=== PATIENT | female | born 1945 | race Caucasian/White ===

== ENCOUNTER → 2016-06-11 | Outpatient (CLI) | payer MEDICARE, OTHER ==
--- NOTE | 2016-06-12 12:14 | MY ---
EXAMINATION: Bilateral digital mammography utilizing CAD. HISTORY: Screening exam. Comparison is made to previous studies dated 08/02/2014, 07/16/2013. FINDINGS: Bilateral extremely dense breast tissue. Postsurgical changes are noted within the breasts bilateral ly. Punctate calcifications are noted. No suspicious calcifications, masses or architectural distortions. No pathologic appearing lymph nodes, no abnormal skin thickening or nipple inversion. CAD highlighted regions appear normal at this time. IMPRESSION: BI-RADS category II - Benign finding. Continued screening according to ACR-ACS guidelines suggested. THE FALSE-NEGATIVE RATE OF MAMMOGRAM IS APPROXIMATELY 10%. MANAGEMENT OF A PALPABLE ABNORMALITY MUST BE BASED UPON CLINICAL GROUNDS. SENSITIVITY FOR DETECTION OF ABNORMALITIES IN DENSE BREASTS IS LOW. NOTE: A letter will be sent to the patient regarding findings. [facility] -- DANDRE Redd [phone] - FAX [phone]
--- NOTE | 2016-06-12 16:34 | XA ---
Exam Date: 06/11/16 Patient's Age: 71 HEIGHT: 64.0 in WEIGHT: 170.0 lbs INDICATIONS: Back Pain, Bilateral Oophorectomy, , Hypertension, Hysterectomy, Post Menopausal FRACTURES: Back Surgery, Foot, Wrist TREATMENTS: Almodipine, Baby Aspirin, Calcium, Iron, Levemir FlexPen,Lyrica, Metoprolol, Multi Vitamin, NovoLog FlexPen, Paroxetine, Simvastatin, Sulindac, Victozio, Vitamin D3 ASSESSMENT: The BMD measured at Femur Neck Mean is 0.875 g/cm2 with a T-score of -1.2. This patient is considered osteopenic according to World Health Organization (WHO) criteria. Bone density is between 10 and 25% below young normal. Fracture risk is moderate. Treatment is advised. The BMD measured at Femur Troch Mean is 0.755 g/cm2 with a T-score of -0.8 is normal. Fracture risk is low. RESULTS: Site Region Age Classification T-Score BMD Dual Femur Neck Mean 70.0 Osteopenia -1.2 0.875 g/cm2 Dual Femur Troch Mean 70.0 N/A -0.8 0.755 g/cm2 Dual Femur Total Mean 70.0 Normal -0.1 0.996 g/cm2 Lf Forearm Radius 33% 70.0 Normal -0.4 0.849 g/cm2 Lf Forearm Radius 33% 63.1 Normal -0.6 0.837 g/cm2 World Health Organization - Criteria for post-menopausal, women: Normal: T-Score at or above -1 SD Osteopenia: T-Score between -1 and -2.5 SD Osteoporosis: T-Score at or below -2.5 SD RECOMMENDATION: Pharmacologic treatment recommendations & Initiate pharmacologic treatment: - In those with hip or vertebral (clinical or asymptomatic) fractures - In those with T -scores <-2.5 at the femoral neck, total hip, or lumbar spine by DXA - In postmenopausal women and men age 50 and older with low bone mass (T-score between -1.0 and -2.5, osteopenia) at the femoral neck, total hip, or lumbar spine by DXA and a 10-year hip fracture probability >3 % or a 10-year major osteoporosis-related fracture probability >20% based on the [place]-adapted WHO absolute fracture risk model (Fracture Risk Algorithm (FRAX); www. NOF.org and www.shef.ac.uk/FRAX) FOLLOW UP: People with diagnosed cases of osteoporosis or at high risk for fracture should have regular bone mineral density tests. For patients eligible for Medicare, routine testing is allowed once every 2 years. The testing frequency can be increased to 1 year for patients who have rapidly progressing disease, those who are reviewing or discontinuing medial therapy to restore bone mass, or have additional risk factors. People with diagnosed cases of osteoporosis or osteopenia should be regularly tested for bone mineral density. For patient eligible for Medicare, routine testing is allowed once every 2 years. The testing frequency can be increased to 1 year for patients who have rapidly progressing disease, or for those who are receiving medial therapy to restore bone mass. [facility] -- DANDRE Redd [phone] - FAX: [phone] ROCKY
== END ==
LOC: MW.MAM 12:44
PROVIDERS: ATTEND Nurse Practitioner Women's Health
DX: Z12.31 Encounter for screening mammogram for malignant neoplasm of breast (principal); M85.859 Other specified disorders of bone density and structure, unspecified thigh; Z78.0 Asymptomatic menopausal state
CPT/HCPCS: 77080; G0202

== ENCOUNTER 2016-07-05 06:24 | Day surgery (SDC) | payer MEDICARE, OTHER ==
[~2016-07-05 06:24] MED LIST: Lactated Ringers 1,000 ML IV SCH; Sodium Chloride 0.9% 10 ML Syringe FLUSH PRN; Sodium Chloride 0.9% 2.5 ML Syringe FLUSH PRN
[2016-07-05] MEDS ORDERED: Propofol 200 MG/20 ML SDV ONE (07:21)
[2016-07-05] MEDS ORDERED: Midazolam 1 MG/ML 2 ML SDV ONE (07:22)
[2016-07-05] MEDS ORDERED: fentaNYL 100 MCG/2 ML SDV ONE (07:22)
--- NOTE | 2016-07-05 07:38 | PCM.PREANE ---
Preanesthetic Assessment - Anesthesia/Transfusion/Family Hx Anesthesia History: Prior Anesthesia Without Reaction Family History of Anesthesia Reaction: No Transfusion History: No Prior Transfusion(s) Intubation History: Unknown - Review of Systems General: No Symptoms Pulmonary: No Symptoms Cardiovascular: No Symptoms Gastrointestinal: No symptoms Neurological: No Symptoms Other: Reports: None - Physical Assessment NPO Status Date: 07/04/16 NPO Status Time: 21:00 O2 Sat by Pulse Oximetry: 94 Respiratory Rate: 16 Vital Signs: Last Vital Signs Temp 36.5 C 07/05/16 06:35 Pulse 95 07/05/16 06:35 Resp 16 07/05/16 06:35 BP 138/80 07/05/16 06:35 Pulse Ox 94 L 07/05/16 06:35 Height: 1.63 m Weight: 82.1 kg Mental Status: Alert & Oriented x3 Airway Class: Mallampati = 2 Dentition: Reports: Normal Dentition, Pitman(s) (multiple crowns upper front) Thyro-Mental Finger Breadths: 3 Mouth Opening Finger Breadths: 3 ROM/Head Extension: Limited/Partial Lungs: Clear to auscultation, Normal respiratory effort Cardiovascular: Regular Rate, Regular Rhythm - Lab Values: Laboratory Last Values POC Glucose 178 mg/dL (60-110) H 07/05/16 06:44 - Allergies Allergies/Adverse Reactions: Allergies Allergy/AdvReac Type Severity Reaction Status Date / Time ketorolac Allergy Nausea and Verified 09/27/14 13:51 Vomiting meperidine [From Demerol] Allergy light Verified 07/02/16 12:54 headed nabumetone [From Relafen] Allergy nightmares Verified 09/27/14 13:51 - Blood Blood Available: No - Anesthesia Plan Pre-Op Medication Ordered: None - Acknowledgements Anesthesia Type Planned: MAC Pt an Appropriate Candidate for the Planned Anesthesia: Yes Alternatives and Risks of Anesthesia Discussed w Pt/Guardian: Yes Pt/Guardian Understands and Agrees with Anesthesia Plan: Yes PreAnesthesia Questionnaire Cardiovascular History: Reports: High cholesterol, Hypertension Genitourinary History: Reports: None [employer] History: Reports: Musculoskeletal History: Reports: Arthritis, Osteoporosis Other Musculoskeletal History: left foot drop, walks with a cane and uses a brace, hx fx left foot Neurological History: Reports: Neuropathy, diabetic Psychiatric History: Reports: Anxiety, Depression Endocrine/Metabolic History: Reports: Diabetes, type II, Obesity/BMI 30+ 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) - Past Surgical History Head Surgeries/Procedures: Reports: None HEENT Surgical History: Reports: Tonsillectomy Female Surgical History: Reports: Hysterectomy, Salpingo-oophorectomy Neurological Surgical History: Reports: C-Spine, Lumbar spine Other Neurological Surgeries/Procedures: hx cervical fusion and back surgery Musculoskeletal Surgical History: Reports: Shoulder surgery Other Musculoskeletal Surgeries/Procedures:: zora shoulder replacements - SUBSTANCE USE Smoking Status *Q: Never Smoker Tobacco Use Within Last Twelve Months: No Recreational Drug Use History: No - HOME MEDS Home Medications: Home Meds Fluticasone Propionate [Flonase Allergy Relief] 1 spray NASBOTH ASDIRECTED PRN 09/27/14 [History] Insulin Aspart [Novolog Flexpen] 8 units SUBCUT ACDINNER 09/27/14 [History] Iron 65 mg PO DAILY 09/27/14 [History] Liraglutide [Victoza] 1.2 mg SUBCUT DAILY 09/27/14 [History] Metoprolol Succinate 50 mg PO DAILY 09/27/14 [History] Multivitamin [Multivitamins] 1 tab PO DAILY 09/27/14 [History] PARoxetine [Paxil] 20 mg PO DAILY 09/27/14 [History] Pregabalin [Lyrica] 100 mg PO BID 09/27/14 [History] Ramipril [Altace] 10 mg PO DAILY 09/27/14 [History] Simvastatin [Zocor] 20 mg PO DAILY 09/27/14 [History] metFORMIN [Glucophage XR] 500 mg PO QID 09/27/14 [History] Aspirin [[place] Aspirin] 81 mg PO DAILY 07/02/16 [History] Calcium Carbonate [Calcium] 1 tab PO DAILY 07/02/16 [History] Naproxen Sodium [Aleve] 1 tab PO ASDIRECTED PRN 07/02/16 [History] Tresiba 22 units SUBCUT BEDTIME 07/02/16 [History] - CURRENT (IN HOUSE) MEDS Current Meds: Current Medications Lactated Ringer's (Ringers, Lactated) 1,000 mls @ 125 mls/hr IV ASDIRECTED RODERICK Last Admin: 07/05/16 07:00 Dose: 125 mls/hr Sodium Chloride (Saline Flush) 10 ml FLUSH ASDIRECTED PRN PRN Reason: Keep Vein Open Sodium Chloride (Saline Flush) 2.5 ml FLUSH ASDIRECTED PRN PRN Reason: Keep Vein Open Discontinued Medications Fentanyl (Sublimaze) Confirm Administered Dose 100 mcg .ROUTE .STK-MED ONE Stop: 07/05/16 07:23 Midazolam HCl (Versed 1 Mg/Ml) Confirm Administered Dose 2 mg .ROUTE .STK-MED ONE Stop: 07/05/16 07:23 Propofol (Diprivan 20 Ml) Confirm Administered Dose 200 mg .ROUTE .STK-MED ONE Stop: 07/05/16 07:22
--- NOTE | 2016-07-05 08:15 | PCM.OPNOTE ---
- General Post-Op/Procedure Note Date of Surgery/Procedure: 07/05/16 Operative Procedure(s): screening colonoscopy Findings: diverticulosis Pre Op Diagnosis: colonoscopy Post-Op Diagnosis: diverticulosis Anesthesia Technique: MAC Primary Surgeon: Lilliana Farmer Condition: Good
--- NOTE | 2016-07-05 08:34 | PCM.POSTAN ---
POST ANESTHESIA ASSESSMENT - MENTAL STATUS Mental Status: alert, oriented - RESPIRATORY Respiratory Status: respiratory rate WNL, airway patent, O2 saturation stable - CARDIOVASCULAR CV Status: pulse rate WNL, blood pressure stable - GASTROINTESTINAL GI Status: no symptoms - POST OP HYDRATION Hydration Status: adequate & stable - OBSERVATIONS Free Text/Narrative:: no anesthesia problems
[2016-07-05 08:43] VITALS: BP 128/77
--- NOTE | 2016-07-05 09:02 | OR ---
SURGEON: ELISHA OLIVEROS MD DATE OF PROCEDURE: 07/05/2016 PREOPERATIVE DIAGNOSIS: Screening colonoscopy. POSTOPERATIVE DIAGNOSIS: Diverticulosis. PROCEDURE PERFORMED: Screening colonoscopy. INSTRUMENT USED: Olympus colonoscope. ANESTHESIA: MAC. EXTENT OF EXAM: To the cecum. PREPARATION: Fair. LIMITATIONS: None. INDICATIONS: The patient is a 71-year-old female, who presents for her first time screening colonoscopy. The patient and I discussed the procedure, expected perioperative course, and risks including bleeding, infection, or damage to surrounding structures, including perforation. The patient verbalized understanding and wished to proceed. PROCEDURE IN DETAIL: The patient was brought to the endoscopy suite and placed in the left lateral decubitus position. A time-out was completed verifying the patient's name, age, date of , allergies, and procedure to be performed. Monitored anesthesia care was induced and continuous oxygen was provided via nasal cannula throughout the procedure. After adequate sedation was achieved, a digital rectal exam was performed. This examination was within normal limits. A well lubricated colonoscope was inserted in the rectum and advanced under direct visualization to the level of the cecum. The cecum was identified by both visual and anatomic landmarks. A photograph was taken of the cecal cap as well as with the scope retroflexed within the cecum. The scope was then straightened out and fully withdrawn while examining the color, texture, anatomy, and integrity of the mucosa from the cecum to the anal canal. The findings were consistent with diverticulosis within the sigmoid colon. The scope was then brought into the rectum and retroflexed to allow visualization of the anal canal opening. A photograph was taken and this appeared normal. The scope was then straightened out and removed from the patient. The procedure was terminated and the patient was taken to the PACU in stable condition. Cecum to anus time was 13 minutes. ENDOSCOPIC DIAGNOSIS: Diverticulosis. RECOMMENDATION: Follow up in clinic in 2 weeks. YUE BURR /[id number] MTDKaren
== END 2016-07-05 09:00 | disposition home or self-care (01) ==
LOC: MW.SDS 06:24
PROVIDERS: ATTEND Surgery
PROC: 0DJD8ZZ Inspection of Lower Intestinal Tract, Via Natural or Artificial Opening Endoscopic (ICD-10-PCS; principal; 2016-07-05)
DX: Z12.11 Encounter for screening for malignant neoplasm of colon (principal); K57.30 Diverticulosis of large intestine without perforation or abscess without bleeding; F32.9 Major depressive disorder, single episode, unspecified; M15.9 Polyosteoarthritis, unspecified; E78.00 Pure hypercholesterolemia, unspecified; I10 Essential (primary) hypertension; M81.0 Age-related osteoporosis without current pathological fracture; E11.40 Type 2 diabetes mellitus with diabetic neuropathy, unspecified; E66.9 Obesity, unspecified; Z88.5 Allergy status to narcotic agent; Z88.6 Allergy status to analgesic agent; Z79.82 Long term (current) use of aspirin; Z79.84 Long term (current) use of oral hypoglycemic drugs; Z79.4 Long term (current) use of insulin; Z79.899 Other long term (current) drug therapy; Z90.710 Acquired absence of both cervix and uterus; Z90.722 Acquired absence of ovaries, bilateral; Z90.79 Acquired absence of other genital organ(s); Z98.890 Other specified postprocedural states; Z68.31 Body mass index [BMI] 31.0-31.9, adult; Z98.1 Arthrodesis status; Z96.611 Presence of right artificial shoulder joint; Z96.612 Presence of left artificial shoulder joint
CPT/HCPCS: 82962; G0121; J2250; J3010; J7120; 00810; J2704

== ENCOUNTER → 2016-07-09 | Outpatient (CLI) | payer MEDICARE, OTHER | LOC: MW.CHGS 08:00 | PROVIDERS: ATTEND Surgery | DX: K57.30 Diverticulosis of large intestine without perforation or abscess without bleeding (principal) | CPT/HCPCS: G0463 ==

== ENCOUNTER 2016-12-24 12:01 | Emergency (ER) | payer MEDICARE, OTHER ==
[2016-12-24 12:23] VITALS: BP 163/103
[2016-12-24] MEDS ORDERED: HYDROmorphone 1 MG/ML Syringe IVPUSH PRN (12:27)
[2016-12-24] MEDS ORDERED: Ondansetron 4 MG/2 ML SDV IVPUSH ONE (12:27)
[2016-12-24] MEDS ORDERED: Sodium Chloride 0.9% 2.5 ML Syringe FLUSH PRN (12:27)
[2016-12-24] MEDS ORDERED: Sodium Chloride 0.9% 10 ML Syringe FLUSH PRN (12:27)
--- NOTE | 2016-12-24 12:29 | EDM.PDOC ---
ED HPI GENERAL MEDICAL PROBLEM - General Chief Complaint: Back Pain or Injury Stated Complaint: BACK PAIN Time Seen by Provider: 12/24/16 12:05 Source of Information: Reports: Patient History Limitations: Reports: No Limitations - History of Present Illness INITIAL COMMENTS - FREE TEXT/NARRATIVE: History of present illness: []Patient has chronic low back pain status post 4 level fusion who complains of burning of her left inner thigh and worsening back pain. She denies any recent trauma or change in activity. She has not had any fecal or urinary incontinence. Patient states she did not take her oxycodone this morning so that her doctor can see how much pain she is in. Pain is now worse. She initially went to Dr. Martínez office but was sent to the emergency room due to the severity of her pain. Review of systems: As per history of present illness and below otherwise all systems reviewed and negative. Past medical history: As per history of present illness and as reviewed below otherwise noncontributory. Surgical history: As per history of present illness and as reviewed below otherwise noncontributory. Social history: No reported history of drug or alcohol abuse. Family history: As per history of present illness and as reviewed below otherwise noncontributory. Physical exam: General: Well developed, well nourished in NAD HEENT: Atraumatic, normocephalic, pupils reactive, negative for conjunctival pallor or scleral icterus, mucous membranes dry, throat clear, neck supple, nontender, trachea midline. Lungs: Clear to auscultation, breath sounds equal bilaterally, chest nontender. Heart: S1S2, regular, negative for clicks, rubs, or JVD. Abdomen: Soft, nondistended, nontender. Negative for masses or hepatosplenomegaly. Negative for costovertebral tenderness. Pelvis: Stable nontender. Genitourinary: Deferred. Rectal: Deferred. Extremities: Atraumatic, negative for cords or calf pain. Neurovascular unremarkable. Neuro: Awake, alert, oriented. Cranial nerves II through XII unremarkable. Cerebellum unremarkable. Motor and sensory unremarkable throughout. Exam nonfocal. Diagnostics: []UA done is positive for nitrites suggesting UTI Therapeutics: []Dilaudid and Valium given for pain with improvement she was also hydrated Impression: []Chronic low back pain, TIA Plan: []Bactrim,Follow-up with Dr. Ha Definitive disposition and diagnosis as appropriate pending reevaluation and review of above. Left Lower Back Pain Score (Numeric/FACES): 10 - Related Data Allergies Allergy/AdvReac Type Severity Reaction Status Date / Time ketorolac Allergy Nausea and Verified 12/24/16 12:22 Vomiting meperidine [From Demerol] Allergy light Verified 12/24/16 12:22 headed nabumetone [From Relafen] Allergy nightmares Verified 12/24/16 12:22 Home Meds: Home Meds Liraglutide [Victoza] 1.2 mg SUBCUT DAILY 09/27/14 [History] PARoxetine [Paxil] 20 mg PO DAILY 09/27/14 [History] Ramipril [Altace] 20 mg PO DAILY 09/27/14 [History] Simvastatin [Zocor] 10 mg PO BEDTIME 09/27/14 [History] metFORMIN [Glucophage XR] 500 mg PO WITHMEALSANDBED 09/27/14 [History] Baclofen 5 mg PO BID PRN 12/24/16 [History] Diazepam [Valium] 5 mg PO BID PRN #16 tablet 12/24/16 [Rx] Diclofenac Sodium 4 gm TP QID PRN 12/24/16 [History] Hydrocodone/Acetaminophen [[place] 5-325 Tablet] 1 each PO Q4H PRN #16 tablet [Rx] Insulin Degludec [Tresiba Flextouch U-100] 24 unit SQ BEDTIME 12/24/16 [History] Insulin Lispro [Humalog] 3 - 10 unit SQ TIDMEALS 12/24/16 [History] Lidocaine/Prilocaine [Lido-Prilo Curry Pack] 1 each TP TID PRN 12/24/16 [History ] Methocarbamol 750 mg PO TID PRN 12/24/16 [History] Metoprolol Succinate [Toprol XL] 100 mg PO DAILY 12/24/16 [History] Pregabalin [Lyrica] 200 mg PO BEDTIME 12/24/16 [History] Sulfamethoxazole/Trimethoprim [Bactrim Ds Tablet] 1 each PO BID #14 tablet 12/24 [Rx] Trimethoprim 100 mg PO DAILY 12/24/16 [History] oxyCODONE HCl/Acetaminophen [oxyCODONE-Acetaminophen 5-325] 1 tab PO TID PRN [History] Past Medical History Cardiovascular History: Reports: High Cholesterol, Hypertension Genitourinary History: Reports: None 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: Musculoskeletal History: Reports: Arthritis, Osteoporosis Other Musculoskeletal History: left foot drop, walks with a cane and uses a brace, hx fx left foot Neurological History: Reports: Neuropathy, Diabetic Psychiatric History: Reports: Anxiety, Depression Endocrine/Metabolic History: Reports: Diabetes, Type II, Obesity/BMI 30+ Immunologic History: Reports: Other (See Below) - Infectious Disease History Infectious Disease History: Reports: Chicken Pox, Measles, Mumps - Past Surgical History Head Surgeries/Procedures: Reports: None HEENT Surgical History: Reports: Tonsillectomy Female Surgical History: Reports: Hysterectomy, Salpingo-Oophorectomy Neurological Surgical History: Reports: C-Spine, Lumbar Spine Musculoskeletal Surgical History: Reports: Shoulder Surgery Social & Family History - Family History Family Medical History: Noncontributory - Tobacco Use Smoking Status *Q: Never Smoker - Recreational Drug Use Recreational Drug Use: No ED ROS GENERAL - Review of Systems Review Of Systems: See Below (See history of present illness) ED EXAM,LOWER BACK PAIN/INJURY - Physical Exam Exam: See Below (See history of present illness) Course - Vital Signs Last Recorded V/S: Last Vital Signs Temp 36.1 C 12/24/16 12:20 Pulse 119 H 12/24/16 12:20 Resp 18 12/24/16 12:20 BP 163/103 H 12/24/16 12:20 Pulse Ox 94 L 12/24/16 12:20 - Orders/Labs/Meds Orders: Active Orders 24 hr Category Date Time Status Ambulate [RC] ASDIRECTED Care 12/24/16 13:29 Active HYDROmorphone [Dilaudid] Med 12/24/16 12:27 Active 0.5 mg IVPUSH Q1H PRN Sodium Chloride 0.9% [Saline Flush] Med 12/24/16 12:27 Active 10 ml FLUSH ASDIRECTED PRN Sodium Chloride 0.9% [Saline Flush] Med 12/24/16 12:27 Active 2.5 ml FLUSH ASDIRECTED PRN Saline Lock Insert [OM.PC] Stat Oth 12/24/16 12:27 Ordered Medication Orders Hydromorphone HCl (Dilaudid) 0.5 mg IVPUSH Q1H PRN PRN Reason: Pain Last Admin: 12/24/16 12:51 Dose: 0.5 mg Sodium Chloride (Saline Flush) 10 ml FLUSH ASDIRECTED PRN PRN Reason: Keep Vein Open Last Admin: 12/24/16 12:47 Dose: 10 ml Sodium Chloride (Saline Flush) 2.5 ml FLUSH ASDIRECTED PRN PRN Reason: Keep Vein Open Last Admin: 12/24/16 12:47 Dose: 2.5 ml Labs: Laboratory Tests 12/24/16 Range/Units 13:49 Urine Color YELLOW Urine Appearance CLOUDY Urine pH 6.0 (5.0-8.0) Ur Specific [place] 1.015 (1.001-1.035) Urine Protein 100 (NEGATIVE) mg/dL Urine Glucose (UA) 500 H (NEGATIVE) mg/dL Urine Ketones TRACE H (NEGATIVE) mg/dL Urine Occult Blood TRACE-LYSED (NEGATIVE) Urine Nitrite POSITIVE H (NEGATIVE) Urine Bilirubin NEGATIVE (NEGATIVE) Urine Urobilinogen 0.2 (<2.0) EU/dL Ur Leukocyte Esterase NEGATIVE (NEGATIVE) Urine RBC 0-1 (0-2/HPF) Urine WBC 4-6 (0-5/HPF) Ur Epithelial Cells OCCASIONAL (NONE-FEW) Urine Bacteria 3+ H (NEGATIVE) Meds: Medications Generic Name Dose Route Start Last Admin Trade Name Freq PRN Reason Stop Dose Admin Hydromorphone HCl 0.5 mg 12/24/16 12:27 12/24/16 12:51 Dilaudid IVPUSH 0.5 mg Q1H PRN Administration Pain Sodium Chloride 10 ml 12/24/16 12:27 12/24/16 12:47 Saline Flush FLUSH 10 ml ASDIRECTED PRN Administration Keep Vein Open Sodium Chloride 2.5 ml 12/24/16 12:27 12/24/16 12:47 Saline Flush FLUSH 2.5 ml ASDIRECTED PRN Administration Keep Vein Open Discontinued Medications Generic Name Dose Route Start Last Admin Trade Name Freq PRN Reason Stop Dose Admin Diazepam 2.5 mg 12/24/16 12:27 12/24/16 12:48 Valium IVPUSH 12/24/16 12:28 2.5 mg ONETIME ONE Administration Ondansetron HCl 4 mg 12/24/16 12:27 12/24/16 12:47 Zofran IVPUSH 12/24/16 12:28 4 mg ONETIME ONE Administration Departure - Departure Time of Disposition: 14:16 Disposition: Home, Self-Care 01 Condition: Good Clinical Impression: Chronic low back pain with left-sided sciatica Qualifiers: Back pain laterality: left Qualified Code(s): M54.42 - Lumbago with sciatica, left side UTI (urinary tract infection) Qualifiers: Urinary tract infection type: site unspecified Hematuria presence: without hematuria Qualified Code(s): N39.0 - Urinary tract infection, site not specified - Discharge Information Prescriptions: Diazepam [Valium] 5 mg PO BID PRN #16 tablet PRN Reason: Spasms Hydrocodone/Acetaminophen [[place] 5-325 Tablet] 1 each PO Q4H PRN #16 tablet PRN Reason: Pain Sulfamethoxazole/Trimethoprim [Bactrim Ds Tablet] 1 each PO BID #14 tablet Referrals: Pio Alegre MD [Primary Care Provider] - Forms: ED Department Discharge Additional Instructions: The following information is given to patients seen in the emergency department who are being discharged to home. This information is to outline your options for follow-up care. We provide all patients seen in our emergency department with a follow-up referral. The need for follow-up, as well as the timing and circumstances, are variable depending upon the specifics of your emergency department visit. If you don't have a primary care physician on staff, we will provide you with a referral. We always advise you to contact your personal physician following an emergency department visit to inform them of the circumstance of the visit and for follow-up with them and/or the need for any referrals to a consulting specialist. The emergency department will also refer you to a specialist when appropriate. This referral assures that you have the opportunity for follow-up care with a specialist. All of these measure are taken in an effort to provide you with optimal care, which includes your follow-up. Under all circumstances we always encourage you to contact your private physician who remains a resource for coordinating your care. When calling for follow-up care, please make the office aware that this follow-up is from your recent emergency room visit. If for any reason you are refused follow-up, please contact the [facility] Emergency Department at and asked to speak to the emergency department charge nurse. Dakota Bateman Bactrim as directed follow-up with your primary doctor and Dr. Ha when possible return if symptoms worsen or change [place] - My Orders Last 24 Hours: My Active Orders 12/24/16 12:27 HYDROmorphone [Dilaudid] 0.5 mg IVPUSH Q1H PRN Sodium Chloride 0.9% [Saline Flush] 10 ml FLUSH ASDIRECTED PRN Sodium Chloride 0.9% [Saline Flush] 2.5 ml FLUSH ASDIRECTED PRN Saline Lock Insert [OM.PC] Stat 12/24/16 13:29 Ambulate [RC] ASDIRECTED - Assessment/Plan Last 24 Hours: My Active Orders 12/24/16 12:27 HYDROmorphone [Dilaudid] 0.5 mg IVPUSH Q1H PRN Sodium Chloride 0.9% [Saline Flush] 10 ml FLUSH ASDIRECTED PRN Sodium Chloride 0.9% [Saline Flush] 2.5 ml FLUSH ASDIRECTED PRN Saline Lock Insert [OM.PC] Stat 12/24/16 13:29 Ambulate [RC] ASDIRECTED
== END 2016-12-24 14:38 | disposition home or self-care (01) ==
LOC: MW.ED 12:01
DX: M54.42 Lumbago with sciatica, left side (principal); N39.0 Urinary tract infection, site not specified; I10 Essential (primary) hypertension; G45.9 Transient cerebral ischemic attack, unspecified; Z79.84 Long term (current) use of oral hypoglycemic drugs; Z79.4 Long term (current) use of insulin; Z79.899 Other long term (current) drug therapy; M51.9 Unspecified thoracic, thoracolumbar and lumbosacral intervertebral disc disorder; M41.9 Scoliosis, unspecified; M96.1 Postlaminectomy syndrome, not elsewhere classified; G89.4 Chronic pain syndrome
CPT/HCPCS: 81001; 96374; 96375; 99214; 99283; J1170; J2405; J3360

== ENCOUNTER 2017-07-01 06:25 | Day surgery (SDC) | payer MEDICARE, OTHER ==
[2017-06-30 10:02] LABS: CHLORIDE,CL 102 mmol/L (98-107); SODIUM,NA 138 mmol/L (136-145)
[2017-07-01] MEDS: Lactated Ringers 1,000 ML IV SCH ×2 (07:07→11:32)
[2017-07-01] MEDS ORDERED: Lidocaine 2% 5 ML SDV ONE (07:14)
[2017-07-01] MEDS ORDERED: Ondansetron 4 MG/2 ML SDV ONE (07:14)
[2017-07-01] MEDS ORDERED: Propofol 200 MG/20 ML SDV ONE (07:14)
[2017-07-01] MEDS ORDERED: Midazolam 1 MG/ML 2 ML SDV ONE (07:15)
[2017-07-01] MEDS ORDERED: fentaNYL 250 MCG/5 ML SDV ONE (07:15)
[2017-07-01] MEDS ORDERED: Bupivacaine 0.25% 10 ML SDV ONE (07:32)
[2017-07-01] MEDS ORDERED: Lidocaine 1% with EPINEPHrine 1:100,000 20 ML MDV ONE (07:33)
[2017-07-01] MEDS ORDERED: Neomycin/Polymyxin B Bladder Irrigation 1 ML Amp ONE (07:34)
--- NOTE | 2017-07-01 07:46 | PCM.PREANE ---
Preanesthetic Assessment - Anesthesia/Transfusion/Family Hx Anesthesia History: Prior Anesthesia Without Reaction Family History of Anesthesia Reaction: No Transfusion History: No Prior Transfusion(s) Intubation History: Unknown - Review of Systems General: No Symptoms Pulmonary: No Symptoms Cardiovascular: No Symptoms Gastrointestinal: No Symptoms Neurological: No Symptoms Other: Reports: None - Physical Assessment NPO Status Date: 06/30/17 NPO Status Time: 22:00 O2 Sat by Pulse Oximetry: 96 Respiratory Rate: 16 Vital Signs: Last Vital Signs Temp 36.8 C 07/01/17 06:30 Pulse 81 07/01/17 06:30 Resp 16 07/01/17 06:30 BP 181/96 H 07/01/17 06:30 Pulse Ox 96 07/01/17 06:30 Height: 1.56 m Weight: 78.925 kg ASA Class: 3 Mental Status: Alert & Oriented x3 Airway Class: Mallampati = 2 Dentition: Reports: Monona(s) (multiple upper front), Implants (x1 upper front) Thyro-Mental Finger Breadths: 3 Mouth Opening Finger Breadths: 2 ROM/Head Extension: Limited/Partial Lungs: Clear to Auscultation, Normal Respiratory Effort Cardiovascular: Regular Rate, Regular Rhythm - Allergies Allergies/Adverse Reactions: Allergies Allergy/AdvReac Type Severity Reaction Status Date / Time ketorolac Allergy Nausea and Verified 06/26/17 12:20 Vomiting meperidine [From Demerol] Allergy light Verified 06/26/17 12:20 headed nabumetone [From Relafen] Allergy nightmares Verified 06/26/17 12:20 - Blood Blood Available: No - Anesthesia Plan Pre-Op Medication Ordered: None - Acknowledgements Anesthesia Type Planned: General Anesthesia Pt an Appropriate Candidate for the Planned Anesthesia: Yes Alternatives and Risks of Anesthesia Discussed w Pt/Guardian: Yes Pt/Guardian Understands and Agrees with Anesthesia Plan: Yes PreAnesthesia Questionnaire HEENT History: Reports: None Cardiovascular History: Reports: High Cholesterol, Hypertension, Other (See Below) (mildly positive stress test '15, had two surgeries since with no problems) Gastrointestinal History: Reports: Diverticulosis Genitourinary History: Reports: None [employer] History: Reports: Musculoskeletal History: Reports: Arthritis, Osteoporosis Other Musculoskeletal History: left foot drop, walks with a cane and uses a brace, hx fx left foot Neurological History: Reports: Neuropathy, Diabetic, Other (See Below) (droped left foot following back surgery) Psychiatric History: Reports: Anxiety, Depression Endocrine/Metabolic History: Reports: Diabetes, Type II, Obesity/BMI 30+ Immunologic History: Reports: Other (See Below) - Infectious Disease History Infectious Disease History: Reports: Chicken Pox, Measles, Mumps - Past Surgical History GI Surgical History: Reports: Appendectomy Female Surgical History: Reports: Hysterectomy, Salpingo-Oophorectomy Neurological Surgical History: Reports: Lumbar Spine (x2) Other Neurological Surgeries/Procedures: hx cervical fusion and back surgery Musculoskeletal Surgical History: Reports: Shoulder Surgery (R shoulder replacement) - SUBSTANCE USE Smoking Status *Q: Never Smoker Tobacco Use Within Last Twelve Months: No Recreational Drug Use History: No - HOME MEDS Home Medications: Home Meds Liraglutide [Victoza] 1.2 mg SUBCUT DAILY 09/27/14 [History] PARoxetine [Paxil] 20 mg PO DAILY 09/27/14 [History] Ramipril [Altace] 20 mg PO DAILY 09/27/14 [History] Simvastatin [Zocor] 20 mg PO BEDTIME 09/27/14 [History] metFORMIN [Glucophage XR] 500 mg PO WITHMEALSANDBED 09/27/14 [History] Insulin Degludec [Tresiba Flextouch U-100] 30 unit SQ BEDTIME 12/24/16 [History] Insulin Lispro [Humalog] 1 injection SQ ASDIRECTED 12/24/16 [History] Metoprolol Succinate [Toprol XL] 50 mg PO DAILY 12/24/16 [History] Pregabalin [Lyrica] 2 tab PO BEDTIME 12/24/16 [History] Aspirin [Lavinia Aspirin] 81 mg PO DAILY 06/26/17 [History] Calcium Carbonate 1 tab PO DAILY 06/26/17 [History] Cephalexin [Keflex] 1 tab PO TID 06/26/17 [History] Ferrous Sulfate [Slow Release Iron] 27 mg PO DAILY 06/26/17 [History] Ibuprofen 2 tab PO ASDIRECTED PRN 06/26/17 [History] Ibuprofen [Advil] 2 tab PO ASDIRECTED PRN 06/26/17 [History] Multivitamin [Multivitamins] 1 tab PO DAILY 06/26/17 [History] Vitamin B Complex 1 tab PO BID 06/26/17 [History] amLODIPine Besylate [Amlodipine Besylate] 5 mg PO DAILY 06/26/17 [History] - CURRENT (IN HOUSE) MEDS Current Meds: Current Medications Lactated Ringer's (Ringers, Lactated) 1,000 mls @ 125 mls/hr IV ASDIRECTED [facility] Last Admin: 07/01/17 07:07 Dose: 125 mls/hr Discontinued Medications Bupivacaine HCl (Sensorcaine-Mpf 0.25%) Confirm Administered Dose 10 ml .ROUTE .STK-MED ONE Stop: 07/01/17 07:33 Fentanyl (Sublimaze) Confirm Administered Dose 250 mcg .ROUTE .STK-MED ONE Stop: 07/01/17 07:16 Lidocaine (Xylocaine-Mpf 2%) Confirm Administered Dose 5 ml .ROUTE .STK-MED ONE Stop: 07/01/17 07:15 Lidocaine/Epinephrine (Xylocaine 1% With Epinephrine 1:100,000) Confirm Administered Dose 20 ml .ROUTE .STK-MED ONE Stop: 07/01/17 07:34 Midazolam HCl (Versed 1 Mg/Ml) Confirm Administered Dose 2 mg .ROUTE .STK-MED ONE Stop: 07/01/17 07:16 Neomycin/Polymyxin (Neosporin Gu Irrigant) Confirm Administered Dose 1 ml .ROUTE .STK-MED ONE Stop: 07/01/17 07:35 Ondansetron HCl (Zofran) Confirm Administered Dose 4 mg .ROUTE .STK-MED ONE Stop: 07/01/17 07:15 Propofol (Diprivan 20 Ml) Confirm Administered Dose 200 mg .ROUTE .STK-MED ONE Stop: 07/01/17 07:15
[2017-07-01] MEDS ORDERED: Succinylcholine 200 MG/10 ML MDV ONE (08:07)
[2017-07-01] MEDS ORDERED: Rocuronium 10 MG/ML 10 ML Syringe ONE (08:07)
[2017-07-01] MEDS ORDERED: Sodium Chloride 0.9% 20 ML ONE (08:15)
[2017-07-01] MEDS ORDERED: ceFAZolin 1 GM Vial ONE (08:15)
[2017-07-01] MEDS ORDERED: Acetaminophen 325 MG Tab PO PRN (09:30)
[2017-07-01] MEDS ORDERED: Promethazine 25 MG/ML SDV IM PRN (09:30)
[2017-07-01] MEDS ORDERED: Ondansetron 4 MG/2 ML SDV IVPUSH PRN (09:30)
[2017-07-01] MEDS ORDERED: Ibuprofen 400 MG Tab PO PRN (09:30)
--- NOTE | 2017-07-01 09:30 | PCM.OPNOTE ---
- General Post-Op/Procedure Note Date of Surgery/Procedure: 07/01/17 Operative Procedure(s): anterior colporrhaphy, single incision mid urethral sling Pre Op Diagnosis: 3rd degree cystocele, urethral hypermobility, extensive red rash consistent with yeast vulvitis. Post-Op Diagnosis: Same Anesthesia Technique: Epidural Primary Surgeon: Judy Barron Secondary Surgeon: Bonnie Mirza Anesthesia Provider: Elaine Montgomery Buffer Chrome: Kostas Oliva Pathology: vaginal mucosa Fluid Replacement, Intraop: 1,600 EBL in mLs: 50 Complications: None Known. Condition: Good
[2017-07-01] MEDS: fentaNYL 100 MCG/2 ML SDV IVPUSH PRN ×2 (09:38→09:50)
--- NOTE | 2017-07-01 09:55 | PCM.POSTAN ---
POST ANESTHESIA ASSESSMENT - MENTAL STATUS Mental Status: Alert, Oriented - RESPIRATORY Respiratory Status: Respiratory Rate WNL, Airway Patent, O2 Saturation Stable - CARDIOVASCULAR CV Status: Pulse Rate WNL, Blood Pressure Stable - GASTROINTESTINAL GI Status: No Symptoms - PAIN Pain Score: 5 - POST OP HYDRATION Hydration Status: Adequate & Stable - OBSERVATIONS Free Text/Narrative:: no anesthesia problems
[2017-07-01] MEDS: ceFAZolin 1 GM in Premix Bag 1 BAG IV SCH ×3 (10:36→21:28)
[2017-07-01] MEDS: METFORMIN ER 500 MG PO SCH ×3 (12:45→21:00)
[2017-07-01] MEDS ORDERED: metFORMIN 500 MG Tab.ER PO ONE ×2 (12:45→13:00)
[2017-07-01] MEDS ORDERED: fentaNYL 100 MCG/2 ML SDV IVPUSH PRN (13:58)
--- NOTE | 2017-07-01 14:43 | OR ---
SURGEON: Judy Barron M.D. DATE OF PROCEDURE: 07/01/2017 PREOPERATIVE DIAGNOSES: 1. Third-degree cystocele, symptomatic. 2. Stress incontinence. 3. Recurrent urinary tract infections. POSTOPERATIVE DIAGNOSES: 1. Third-degree cystocele, symptomatic. 2. Stress incontinence. 3. Recurrent urinary tract infections. PROCEDURES: Anterior colporrhaphy and single incision midurethral sling. TECHNOLOGY DEVELOPMENT INTERN: Bonnie Mirza. SECOND TECHNOLOGY DEVELOPMENT INTERN: RIP James ANESTHESIA: Local and general. ESTIMATED BLOOD LOSS: 50 mL. FLUIDS: 1600 mL of crystalloid. FINDINGS: Third-degree cystocele, urethral hypermobility, and extensive yeast vulvitis. COMPLICATIONS: None known. DISPOSITION: Stable to recovery. BRIEF HISTORY: This is a 72-year-old female, she has type 2 diabetes, she has had recent back surgery, she has recurrent UTIs, severe stress incontinence, and third-degree cystocele. Since the fall, we have been trying to proceed with cystometry and repair; however, due to recurrent urinary tract infections, the cystometry was delayed approximately 5 months. Following the cystometry, she has had one additional urinary tract infection; however, has had a urine culture that was completed and was negative yesterday. She is currently on Keflex and I feel that her urinary tract infections will not improve until the severe stress incontinence is dealt with as well as a cystocele. Therefore, I did recommend proceeding with the procedure with risks discussed including bleeding, infection, injury to bowel, bladder, blood vessels, or other organs, risk of thromboembolic event, risk of anesthesia. Regarding the Solyx sling, I did review risk of urinary retention, mesh erosion, pelvic pain, mesh migration, and dyspareunia. Understanding all these risks, she does desire to proceed. She also does understand my degree of experience with the mesh. I have reviewed that I have done many retropubic slings over the past 20 years as well as transobturator slings. I have recently converted utilizing the single incision sling and therefore, the rep will be present at the time of surgery. The rep have her flight diverted today and therefore, she was present on face time. DESCRIPTION OF PROCEDURE: With the patient in dorsal lithotomy position, under adequate general endotracheal anesthesia, the perineum and vagina were prepped with Betadine and draped in usual fashion for vaginal surgery. SCDs were in place. Hameed catheter had been placed. She had received 2 g of Ancef IV and an appropriate time-out was held. Findings on pelvic exam were noted as above. A weighted speculum was placed posteriorly approximately 3 cm cephalad from the urethral meatus. An Allis clamp was placed. Hydrodissection was performed beneath the anterior vaginal mucosa from this point to the vaginal cuff. The vaginal mucosa was opened using a 15 blade scalpel, undermining with Metzenbaum scissors, and the muscularis layer was from the overlying vaginal mucosa using sharp and blunt dissection. The muscularis layer was then reapproximated in the midline using multiple interrupted mattress sutures of 3-0 Polysorb. The vaginal mucosa was slightly trimmed and closed with a running locked suture of 3- 0 Polysorb. The Hameed bulb was then palpated to identify the ureterovesical junction and starting approximately 1 cm from the urethral meatus and extending 1.1 cm in length ending well below the level of the Hameed bulb, and an incision was made with a 15 blade scalpel. After hydrodissection had been performed beneath this tissue and also extending towards the obturator foramen, the obturator notch was marked on the right and the left groin area at the level of the clitoris as a landmark. Metzenbaum scissors were then used to tunnel towards the obturator foramen on the right and the left using a push and spread technique. The Solyx sling was then loaded, marked in the midline, and placed at a 45-degree angle regarding the tip relative to the floor and using a finger to stabilize the transducer, the tip was placed through the initial muscle layer to pass the pubic ramus. The handle was then dropped to a 30-degree angle, and the tip was placed through the obturator foramen and was felt to be very secured. Therefore, the tip was released and the opposite arm of the Solyx mesh was placed on the tip of the transducer. The process was repeated on the left side. Initially, I did not feel that I had placed the mesh through the obturator foramen and indeed as I pulled back, there was motion; however, the tip came off the transducer. I did discuss this with the rep, she recommended retracting on the tape, and tape was then removed, replaced securely onto the transducer. The transducer was again passed at a 45-degree angle dropping the handle once I was beneath the pubic ramus and entering through the obturator foramen and securely placing it through the obturator membrane. At this point, it was very secure, and the bladder was back filled with 300 mL of sterile water with a Crede maneuver. There was no leakage. Therefore, the catheter was replaced again and the antibiotic solution was used to irrigate the mesh. The vaginal mucosa was closed with a running locked suture of 3-0 Polysorb. Prior to closure, of course, the handle of the introducer was released from the tip of the Solyx sling. The vagina was packed with packing gauze instilled with water- based lubricant. Hameed catheter was left in place. Final sponge, needle, and instrument counts were reported as correct. There were no known complications. The patient was transferred to recovery in good condition. CASANDRA BURR /[id number]
[2017-07-01] MEDS ORDERED: METFORMIN ER 500 MG PO SCH (17:30)
[2017-07-01] MEDS ORDERED: [UNRECOGNIZED DRUG - OTHER] SUBCUT SCH (17:30)
[2017-07-01] MEDS ORDERED: INSULIN LISPRO SUBCUT SCH (17:30)
[2017-07-01] MEDS ORDERED: TRESIBA 30 UNIT SUBCUT SCH (21:00)
[2017-07-01] MEDS ORDERED: SIMVASTATIN 20 MG PO SCH ×2 (21:00)
[2017-07-01] MEDS ORDERED: LYRICA 100 MG PO SCH ×2 (21:00)
[2017-07-02] MEDS: ceFAZolin 1 GM in Premix Bag 1 BAG IV SCH ×2 (04:12→09:25)
[2017-07-02 06:34] LABS: CHLORIDE,CL 102 mmol/L (98-107); SODIUM,NA 140 mmol/L (136-145)
--- NOTE | 2017-07-02 07:43 | PCM48HPAN ---
Post Anesthesia Note - EVALUATION WITHIN 48HRS OF ANESTHETIC Vital Signs in Normal Range: Yes Patient Participated in Evaluation: Yes Respiratory Function Stable: Yes Airway Patent: Yes Cardiovascular Function Stable: Yes Hydration Status Stable: Yes Pain Control Satisfactory: Yes Nausea and Vomiting Control Satisfactory: Yes Mental Status Recovered: Yes Resp Rate: 19 Blood Pressure: 130/79 - COMMENTS/OBSERVATIONS Free Text/Narrative:: Pt resting comfortably. Pt denies any nausea overnight and states pain has been well controlled overnight. No apparent anesthesia complications.
[2017-07-02] MEDS ORDERED: METFORMIN ER 500 MG PO SCH (08:00)
[2017-07-02] MEDS ORDERED: [UNRECOGNIZED DRUG - OTHER] SUBCUT SCH (08:00)
[2017-07-02] MEDS ORDERED: INSULIN LISPRO SUBCUT SCH (08:00)
[2017-07-02] MEDS ORDERED: AMLODIPINE 5 MG PO SCH ×2 (09:00)
[2017-07-02] MEDS ORDERED: PAROXETINE 20 MG PO SCH ×2 (09:00)
[2017-07-02] MEDS ORDERED: RAMIPRIL 20 MG PO SCH (09:00)
[2017-07-02] MEDS ORDERED: METOPROLOL SUCCINATE 50 MG PO SCH ×2 (09:00)
[2017-07-02] MEDS ORDERED: LIRAGLUTIDE 1.2 MG SUBCUT SCH (09:00)
--- NOTE | 2017-07-02 09:00 | PCM.SURGPN ---
- General Info POD#: 1 Post-Op Diagnosis: cystocele, stress incontinence Functional Status: Reports: Pain Controlled, Tolerating Diet, Ambulating. Denies: Urinating (catheter still in place, will have voiding trial this am. ) - Review of Systems General: Reports: No Symptoms HEENT: Reports: No Symptoms Pulmonary: Reports: No Symptoms Cardiovascular: Reports: No Symptoms Gastrointestinal: Reports: No Symptoms Genitourinary: Reports: No Symptoms Musculoskeletal: Reports: No Symptoms Skin: Reports: No Symptoms Neurological: Reports: No Symptoms Psychiatric: Reports: No Symptoms - Patient Data Vitals - Most Recent: Last Vital Signs Temp 36.8 C 07/02/17 08:53 Pulse 67 07/02/17 08:53 Resp 12 07/02/17 08:53 BP 172/78 H 07/02/17 08:53 Pulse Ox 95 07/02/17 08:53 Weight - Most Recent: 78.925 kg I&O - Last 24 Hours: Intake & Output 07/01/17 07/02/17 07/02/17 22:59 06:59 14:59 Intake Total 520 500 Output Total 950 1800 Balance -430 -1300 Lab Results Last 24 Hrs: Laboratory Results - last 24 hr 07/01/17 07/01/17 07/01/17 Range/Units 06:57 07:30 07:30 WBC (4.0-11.0) K/uL RBC (4.30-5.90) M/uL Hgb (12.0-16.0) g/dL Hct (36.0-46.0) % MCV (80.0-98.0) fL MCH (27.0-32.0) pg MCHC (31.0-37.0) g/dL RDW Std Deviation (28.0-62.0) fl RDW Coeff of Kaylin (11.0-15.0) % Plt Count (150-400) K/uL MPV (7.40-12.00) fL Neut % (Auto) (48.0-80.0) % Lymph % (Auto) (16.0-40.0) % Sequoyah % (Auto) (0.0-15.0) % Eos % (Auto) (0.0-7.0) % Baso % (Auto) (0.0-1.5) % Neut # (Auto) (1.4-5.7) K/uL Lymph # (Auto) (0.6-2.4) K/uL Sequoyah # (Auto) (0.0-0.8) K/uL Eos # (Auto) (0.0-0.7) K/uL Baso # (Auto) (0.0-0.1) K/uL Nucleated RBC % /100WBC Nucleated RBCs # K/uL Sodium (136-145) mmol/L Potassium (3.5-5.1) mmol/L Chloride (98-107) mmol/L Carbon Dioxide (21.0-32.0) mmol/L BUN (7.0-18.0) mg/dL Creatinine (0.6-1.0) mg/dL Est Cr Clr Drug Dosing mL/min Estimated GFR (MDRD) ml/min Glucose (74-106) mg/dL POC Glucose 195 H (60-110) mg/dL Calcium (8.5-10.1) mg/dL Antibody Screen POSITIVE Prewarmed Antibody Srcn NEGATIVE Antibody Identification Anti-Faye Crossmatch See Detail 07/01/17 07/01/17 07/02/17 Range/Units 09:34 15:51 05:43 WBC 8.55 (4.0-11.0) K/uL RBC 3.85 L (4.30-5.90) M/uL Hgb 11.4 L (12.0-16.0) g/dL Hct 35.0 L (36.0-46.0) % MCV 90.9 (80.0-98.0) fL MCH 29.6 (27.0-32.0) pg MCHC 32.6 (31.0-37.0) g/dL RDW Std Deviation 46.0 (28.0-62.0) fl RDW Coeff of Kaylin 14 (11.0-15.0) % Plt Count 261 (150-400) K/uL MPV 9.00 (7.40-12.00) fL Neut % (Auto) 61.8 (48.0-80.0) % Lymph % (Auto) 23.3 (16.0-40.0) % Sequoyah % (Auto) 12.3 (0.0-15.0) % Eos % (Auto) 2.1 (0.0-7.0) % Baso % (Auto) 0.5 (0.0-1.5) % Neut # (Auto) 5.3 (1.4-5.7) K/uL Lymph # (Auto) 2.0 (0.6-2.4) K/uL Sequoyah # (Auto) 1.1 H (0.0-0.8) K/uL Eos # (Auto) 0.2 (0.0-0.7) K/uL Baso # (Auto) 0.0 (0.0-0.1) K/uL Nucleated RBC % 0.0 /100WBC Nucleated RBCs # 0 K/uL Sodium (136-145) mmol/L Potassium (3.5-5.1) mmol/L Chloride (98-107) mmol/L Carbon Dioxide (21.0-32.0) mmol/L BUN (7.0-18.0) mg/dL Creatinine (0.6-1.0) mg/dL Est Cr Clr Drug Dosing mL/min Estimated GFR (MDRD) ml/min Glucose (74-106) mg/dL POC Glucose 160 H 182 H (60-110) mg/dL Calcium (8.5-10.1) mg/dL Antibody Screen Prewarmed Antibody Srcn Antibody Identification Crossmatch 07/02/17 Range/Units 05:43 WBC (4.0-11.0) K/uL RBC (4.30-5.90) M/uL Hgb (12.0-16.0) g/dL Hct (36.0-46.0) % MCV (80.0-98.0) fL MCH (27.0-32.0) pg MCHC (31.0-37.0) g/dL RDW Std Deviation (28.0-62.0) fl RDW Coeff of Kaylin (11.0-15.0) % Plt Count (150-400) K/uL MPV (7.40-12.00) fL Neut % (Auto) (48.0-80.0) % Lymph % (Auto) (16.0-40.0) % Sequoyah % (Auto) (0.0-15.0) % Eos % (Auto) (0.0-7.0) % Baso % (Auto) (0.0-1.5) % Neut # (Auto) (1.4-5.7) K/uL Lymph # (Auto) (0.6-2.4) K/uL Sequoyah # (Auto) (0.0-0.8) K/uL Eos # (Auto) (0.0-0.7) K/uL Baso # (Auto) (0.0-0.1) K/uL Nucleated RBC % /100WBC Nucleated RBCs # K/uL Sodium 140 (136-145) mmol/L Potassium 3.7 (3.5-5.1) mmol/L Chloride 102 (98-107) mmol/L Carbon Dioxide 29.3 (21.0-32.0) mmol/L BUN 9 (7.0-18.0) mg/dL Creatinine 0.8 (0.6-1.0) mg/dL Est Cr Clr Drug Dosing 49.72 mL/min Estimated GFR (MDRD) > 60.0 ml/min Glucose 185 H (74-106) mg/dL POC Glucose (60-110) mg/dL Calcium 8.7 (8.5-10.1) mg/dL Antibody Screen Prewarmed Antibody Srcn Antibody Identification Crossmatch Med Orders - Current: Current Medications Acetaminophen (Tylenol) 650 mg PO Q4H PRN PRN Reason: Pain (mild 1-3) Last Admin: 07/02/17 08:44 Dose: 650 mg Lactated Ringer's (Ringers, Lactated) 1,000 mls @ 125 mls/hr IV ASDIRECTED PENDING SALE TO [facility] Last Admin: 07/01/17 11:32 Dose: 125 mls/hr Cefazolin Sodium/Dextrose 1 gm (/ Premix) 50 mls @ 100 mls/hr IV Q6H [facility] Last Admin: 07/02/17 04:12 Dose: 100 mls/hr Ibuprofen (Motrin) 400 mg PO Q6H PRN PRN Reason: Pain (mild 1-3) Last Admin: 07/01/17 12:41 Dose: 400 mg Ondansetron HCl (Zofran) 4 mg IVPUSH Q6H PRN PRN Reason: Nausea/Vomiting Humalog Quikpen 100 (Un/Ml) 1 each SUBCUT WITHBREAKFAST PENDING SALE TO [facility]; Protocol Last Admin: 05/01/18 08:25 Dose: 1 each Amlodipine 5 Mg 1 each PO DAILY PENDING SALE TO [facility] Last Admin: 07/02/17 08:30 Dose: Not Given Tresiba 30 Units 1 each SUBCUT BEDTIME PENDING SALE TO [facility] Last Admin: 07/01/17 21:24 Dose: 1 each (Liraglutide 1.2 Mg) 1 each SUBCUT DAILY PENDING SALE TO [facility] Last Admin: 07/02/17 08:27 Dose: 1 each Metoprolol Succinate (50 Mg) 1 each PO DAILY PENDING SALE TO [facility] Last Admin: 07/02/17 08:29 Dose: 1 each Paroxetine 20 Mg 1 each PO DAILY PENDING SALE TO [facility] Last Admin: 07/02/17 08:29 Dose: 1 each Lyrica 100 Mg 2 each PO BEDTIME PENDING SALE TO [facility] Last Admin: 07/01/17 21:26 Dose: 2 each Humalog Quikpen 100 (Un/Ml) 1 each SUBCUT WITHDINNER PENDING SALE TO [facility] Last Admin: 07/01/17 17:49 Dose: 1 each Simvastatin 20 Mg 1 each PO BEDTIME PENDING SALE TO [facility] Last Admin: 07/01/17 21:28 Dose: Not Given Metformin Er 500 Mg 1 each PO WITHMEALSANDBED PENDING SALE TO [facility] Last Admin: 07/02/17 08:45 Dose: 1 each Promethazine HCl (Phenergan) 25 mg IM Q6H PRN PRN Reason: Nausea/Vomiting Discontinued Medications Bupivacaine HCl (Sensorcaine-Mpf 0.25%) Confirm Administered Dose 10 ml .ROUTE .STK-MED ONE Stop: 07/01/17 07:33 Cefazolin Sodium (Ancef) Confirm Administered Dose 2 gm .ROUTE .STK-MED ONE Stop: 07/01/17 08:16 Fentanyl (Sublimaze) Confirm Administered Dose 250 mcg .ROUTE .STK-MED ONE Stop: 07/01/17 07:16 Fentanyl (Sublimaze) 50 mcg IVPUSH Q5M PRN PRN Reason: Pain (severe 7-10) Stop: 07/02/17 08:28 Last Admin: 07/01/17 09:50 Dose: 50 mcg Fentanyl (Sublimaze) 50 mcg IVPUSH Q5M PRN PRN Reason: Pain (severe 7-10) Stop: 07/02/17 13:58 Sodium Chloride (Normal Saline) Confirm Administered Dose 20 mls @ as directed .ROUTE .STK-MED ONE Stop: 07/01/17 08:16 Lidocaine (Xylocaine-Mpf 2%) Confirm Administered Dose 5 ml .ROUTE .STK-MED ONE Stop: 07/01/17 07:15 Lidocaine/Epinephrine (Xylocaine 1% With Epinephrine 1:100,000) Confirm Administered Dose 20 ml .ROUTE .STK-MED ONE Stop: 07/01/17 07:34 Metformin HCl (Glucophage Xr) 500 mg PO ONETIME ONE Stop: 07/01/17 13:01 Last Admin: 07/01/17 13:29 Dose: 500 mg Midazolam HCl (Versed 1 Mg/Ml) Confirm Administered Dose 2 mg .ROUTE .STK-MED ONE Stop: 07/01/17 07:16 Neomycin/Polymyxin (Neosporin Gu Irrigant) Confirm Administered Dose 1 ml .ROUTE .STK-MED ONE Stop: 07/01/17 07:35 Ondansetron HCl (Zofran) Confirm Administered Dose 4 mg .ROUTE .STK-MED ONE Stop: 07/01/17 07:15 Metformin Er 500 Mg 1 each PO WITHMEALSANDBED [facility] Last Admin: 07/01/17 12:45 Dose: Not Given Propofol (Diprivan 20 Ml) Confirm Administered Dose 200 mg .ROUTE .STK-MED ONE Stop: 07/01/17 07:15 Rocuronium Enders (Zemuron) Confirm Administered Dose 100 mg .ROUTE .STK-MED ONE Stop: 07/01/17 08:08 Succinylcholine Chloride (Quelicin) Confirm Administered Dose 200 mg .ROUTE .STK -MED ONE Stop: 07/01/17 08:08 - Exam Wound/Incisions: Healing Well, Dressing Dry and Intact (packing removed, minimal blood) General: Alert, Oriented HEENT: Pupils Equal Neck: Supple Lungs: Clear to Auscultation, Normal Respiratory Effort Cardiovascular: Regular Rate, Regular Rhythm GI/Abdominal Exam: Normal Bowel Sounds, Soft, Non-Tender Extremities: Normal Inspection, Non-Tender Skin: Warm, Dry, Intact Psy/Mental Status: Alert, Normal Affect, Normal Mood, Other (had nightmares last night after taking Lyrica) - Problem List & Annotations (1) Cystocele SNOMED Code(s): 998610686 Code(s): ROM1545 - Status: Acute Current Visit: Yes (2) Stress incontinence of urine SNOMED Code(s): 25936618 Code(s): N39.3 - STRESS INCONTINENCE (FEMALE) (MALE) Status: Acute Current Visit: Yes - Problem List Review Problem List Initiated/Reviewed/Updated: Yes - My Orders Last 24 Hours: Active Orders 24 hr Category Date Time Status Patient Status [ADT] Routine ADT 07/01/17 09:30 Active Bradycardia-Neuroaxis [facility] [RC] ROUTINE Care 07/01/17 08:28 Active Hypertension-Neuroaxis [employer] [RC] ROUTINE Care 07/01/17 08:28 Active Hypotension-Neuroaxis [employer] [RC] ROUTINE Care 07/01/17 08:28 Active Intake and Output [RC] Q12H Care 07/01/17 09:31 Active Notify Provider Intake and Out [RC] ASDIRECTED Care 07/01/17 09:30 Active Notify Provider Vital Signs [RC] ASDIRECTED Care 07/01/17 09:30 Active Oxygen Therapy [RC] ASDIRECTED Care 07/01/17 09:30 Active RT Incentive Spirometry [RC] Q2HWA Care 07/01/17 09:30 Active Up With Assistance [RC] PER UNIT ROUTINE Care 07/01/17 09:30 Active Urinary Catheter Removal [RC] Per Unit Routine Care 07/02/17 06:00 Active Vital Signs [RC] PER UNIT ROUTINE Care 07/01/17 09:30 Active Consistent Carbohydrate Diet [DIET] Diet 07/01/17 Lunch Active Acetaminophen [Tylenol] Med 07/01/17 09:30 Active 650 mg PO Q4H PRN Ibuprofen [Motrin] Med 07/01/17 09:30 Active 400 mg PO Q6H PRN Ondansetron [Zofran] Med 07/01/17 09:30 Active 4 mg IVPUSH Q6H PRN Patient's Own Medication [Ptom] Med 07/01/17 21:00 Active 1 each PO BEDTIME Patient's Own Medication [Ptom] Med 07/02/17 09:00 Active 1 each PO DAILY Patient's Own Medication [Ptom] Med 07/02/17 09:00 Active 1 each PO DAILY Patient's Own Medication [Ptom] Med 07/02/17 09:00 Active 1 each PO DAILY Patient's Own Medication [Ptom] Med 07/02/17 08:00 Active 1 each PO WITHMEALSANDBED Patient's Own Medication [Ptom] Med 07/01/17 21:00 Active 1 each SUBCUT BEDTIME Patient's Own Medication [Ptom] Med 07/02/17 09:00 Active 1 each SUBCUT DAILY Patient's Own Medication [Ptom] Med 07/02/17 08:00 Active 1 each SUBCUT WITHBREAKFAST Patient's Own Medication [Ptom] Med 07/01/17 17:30 Active 1 each SUBCUT WITHDINNER Patient's Own Medication [Ptom] Med 07/01/17 21:00 Active 2 each PO BEDTIME Promethazine [Phenergan] Med 07/01/17 09:30 Active 25 mg IM Q6H PRN ceFAZolin [Ancef] 1 gm Med 07/01/17 09:30 Active Premix Bag 1 bag IV Q6H Peripheral IV Discontinue [OM.PC] Routine Oth 07/01/17 09:30 Ordered Post Void Residual [OM.PC] Routine Oth 07/01/17 09:30 Ordered Remove Vaginal Packing [OM.PC] Per Unit Routine Oth 07/02/17 05:32 Ordered Sequential Compression Device [OM.PC] Per Unit Routine Oth 07/01/17 09:30 Ordered Resuscitation Status Routine Resus Stat 07/01/17 09:30 Ordered Medication Orders Acetaminophen (Tylenol) 650 mg PO Q4H PRN PRN Reason: Pain (mild 1-3) Last Admin: 07/02/17 08:44 Dose: 650 mg Lactated Ringer's (Ringers, Lactated) 1,000 mls @ 125 mls/hr IV ASDIRECTED PENDING SALE TO [facility] Last Admin: 07/01/17 11:32 Dose: 125 mls/hr Infusion: 07/01/17 11:32 Dose: 125 mls/hr Admin: 07/01/17 07:07 Dose: 125 mls/hr Cefazolin Sodium/Dextrose 1 gm (/ Premix) 50 mls @ 100 mls/hr IV Q6H PENDING SALE TO [facility] Last Admin: 07/02/17 04:12 Dose: 100 mls/hr Infusion: 07/01/17 21:58 Dose: 100 mls/hr Admin: 07/01/17 21:28 Dose: 100 mls/hr Infusion: 07/01/17 15:40 Dose: 100 mls/hr Admin: 07/01/17 15:10 Dose: 100 mls/hr Admin: 07/01/17 10:36 Dose: Ibuprofen (Motrin) 400 mg PO Q6H PRN PRN Reason: Pain (mild 1-3) Last Admin: 07/01/17 12:41 Dose: 400 mg Ondansetron HCl (Zofran) 4 mg IVPUSH Q6H PRN PRN Reason: Nausea/Vomiting Humalog Quikpen 100 (Un/Ml) 1 each SUBCUT WITHBREAKFAST [facility]; Protocol Last Admin: 07/02/17 08:25 Dose: 1 each Amlodipine 5 Mg 1 each PO DAILY [facility] Last Admin: 07/02/17 08:30 Dose: Not Given Tresiba 30 Units 1 each SUBCUT BEDTIME [facility] Last Admin: 07/01/17 21:24 Dose: 1 each (Liraglutide 1.2 Mg) 1 each SUBCUT DAILY PENDING SALE TO [facility] Last Admin: 07/02/17 08:27 Dose: 1 each Metoprolol Succinate (50 Mg) 1 each PO DAILY [facility] Last Admin: 07/02/17 08:29 Dose: 1 each Paroxetine 20 Mg 1 each PO DAILY [facility] Last Admin: 07/02/17 08:29 Dose: 1 each Lyrica 100 Mg 2 each PO BEDTIME [facility] Last Admin: 07/01/17 21:26 Dose: 2 each Humalog Quikpen 100 (Un/Ml) 1 each SUBCUT WITHDINNER PENDING SALE TO [facility] Last Admin: 07/01/17 17:49 Dose: 1 each Simvastatin 20 Mg 1 each PO BEDTIME [facility] Last Admin: 07/01/17 21:28 Dose: Metformin Er 500 Mg 1 each PO WITHMEALSANDBED [facility] Last Admin: 07/02/17 08:45 Dose: 1 each Promethazine HCl (Phenergan) 25 mg IM Q6H PRN PRN Reason: Nausea/Vomiting - Assessment Assessment (Free Text/Narrative):: POD#1 after anterior colporrhaphy with single incision mid urethral sling. Stable, pain is baseline prior to surgery. She is tolerating diet. Ambulated last night, voiding trial not yet initiated. - Plan Plan (Free Text/Narrative):: Voiding trial today. Home on antibiotics due to recurrent UTI's. Continue prior out patient medications and diabetes management per Dr. Young.
[2017-07-02] MEDS: METFORMIN ER 500 MG PO SCH (09:31)
[2017-07-02 11:31] VITALS: BP 146/77
== END 2017-07-02 11:41 | disposition home or self-care (01) ==
LOC: MW.SDS 06:25 → MW.MS 09:45 → MW.SDS 07-02 11:41
PROVIDERS: ATTEND Obstetrics & Gynecology
DX: N39.3 Stress incontinence (female) (male) (principal); N81.10 Cystocele, unspecified; N39.0 Urinary tract infection, site not specified; F41.9 Anxiety disorder, unspecified; F32.9 Major depressive disorder, single episode, unspecified; E11.9 Type 2 diabetes mellitus without complications; I10 Essential (primary) hypertension; E78.00 Pure hypercholesterolemia, unspecified; Z88.8 Allergy status to other drugs, medicaments and biological substances; Z79.82 Long term (current) use of aspirin; Z79.899 Other long term (current) drug therapy; Z79.84 Long term (current) use of oral hypoglycemic drugs; Z79.2 Long term (current) use of antibiotics
CPT/HCPCS: 36415; 57240; 57288; 80048; 80053; 82962; 85025; 85027; 86156; 86850; 86870; 86900; 86901; A9270; J0330; J0690; J2250; J2405; J3010; J7120; 88304; J2704

== ENCOUNTER 2017-11-01 06:49 | Day surgery (SDC) | payer MEDICARE, OTHER ==
[2017-11-01] MEDS ORDERED: Midazolam 1 MG/ML 2 ML SDV ONE (07:01)
[2017-11-01] MEDS ORDERED: Propofol 200 MG/20 ML SDV ONE (07:01)
[2017-11-01] MEDS ORDERED: fentaNYL 100 MCG/2 ML SDV ONE (07:01)
[2017-11-01] MEDS ORDERED: ceFAZolin/Dextrose,Iso-Osmotic 2 GM/50 ML Duplex Bag IV ONE (07:02)
--- NOTE | 2017-11-01 07:36 | PCM.PREANE ---
Preanesthetic Assessment - Anesthesia/Transfusion/Family Hx Anesthesia History: Prior Anesthesia Without Reaction Family History of Anesthesia Reaction: No Transfusion History: No Prior Transfusion(s) Intubation History: Unknown - Review of Systems General: No Symptoms Pulmonary: No Symptoms Cardiovascular: No Symptoms Gastrointestinal: No Symptoms Neurological: No Symptoms Other: Reports: None - Physical Assessment NPO Status Date: 10/31/17 Height: 1.63 m Weight: 81.193 kg ASA Class: 3 Mental Status: Alert & Oriented x3 Airway Class: Mallampati = 1 Dentition: Reports: Lamoure(s) ROM/Head Extension: Full Lungs: Clear to Auscultation, Normal Respiratory Effort Cardiovascular: Regular Rate, Regular Rhythm - Allergies Allergies/Adverse Reactions: Allergies Allergy/AdvReac Type Severity Reaction Status Date / Time cyclobenzaprine Allergy Other Verified 10/29/17 12:11 [From Flexeril] ketorolac Allergy Headache Verified 10/29/17 12:11 meperidine [From Demerol] Allergy Change Verified 10/29/17 12:11 Mental Status nabumetone [From Relafen] Allergy nightmares Verified 10/29/17 12:11 - Blood Blood Available: No - Anesthesia Plan Pre-Op Medication Ordered: None - Acknowledgements Anesthesia Type Planned: MAC Pt an Appropriate Candidate for the Planned Anesthesia: Yes Alternatives and Risks of Anesthesia Discussed w Pt/Guardian: Yes Pt/Guardian Understands and Agrees with Anesthesia Plan: Yes Additional Comments: PMH: DM 1.5 on insulin , glucose this am was 280, htn, hld, thyroid replacement , s/p cervical fusing with preserved cervical extension PLAN: MAC PreAnesthesia Questionnaire HEENT History: Reports: Other (See Below) Other HEENT History: uses reading glasses Cardiovascular History: Reports: High Cholesterol, Hypertension Respiratory History: Reports: None Gastrointestinal History: Reports: None Genitourinary History: Reports: UTI, Recurrent Other Genitourinary History: recent UTI [employer]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 History: Reports: None Musculoskeletal History: Reports: Arthritis, Back Pain, Chronic, Fracture, Neck Pain, Chronic, Osteoporosis Other Musculoskeletal History: hx of fx left foot x2 and right wrist Neurological History: Reports: Other (See Below) Other Neuro History: hx of motion sickness, has weakness in left foot from previous back surgery- uses a cane Psychiatric History: Reports: Depression Endocrine/Metabolic History: Reports: Diabetes, Type II, Hypothyroidism Hematologic History: Reports: Anemia Immunologic History: Reports: None Oncologic (Cancer) History: Reports: None Dermatologic History: Reports: None - Infectious Disease History Infectious Disease History: Reports: Chicken Pox, Measles, Mumps - Past Surgical History Head Surgeries/Procedures: Reports: None HEENT Surgical History: Reports: Tonsillectomy Female Surgical History: Reports: Breast Biopsy, Hysterectomy, Oophorectomy, Tubal Ligation Neurological Surgical History: Reports: C-Spine, Lumbar Spine, Spinal Fusion, Other (See Below) Other Neurological Surgeries/Procedures: back surgery ro releive pinched nerve, cervical spinal fusion, lumbar fusion- L2-3-4-5-S1 Musculoskeletal Surgical History: Reports: Shoulder Surgery, Other (See Below) Other Musculoskeletal Surgeries/Procedures:: Bilateral Total Shoulder Arthroplasties, repair of torn muscle in foot - SUBSTANCE USE Smoking Status *Q: Never Smoker Recreational Drug Use History: No - HOME MEDS Home Medications: Home Meds Liraglutide [Victoza] 1.2 mg SUBCUT QAM 09/27/14 [History] PARoxetine [Paxil] 20 mg PO DAILY 09/27/14 [History] Ramipril [Altace] 20 mg PO DAILY 09/27/14 [History] Simvastatin [Zocor] 10 mg PO BEDTIME 09/27/14 [History] metFORMIN [Glucophage XR] 500 mg PO WITHMEALSANDBED 09/27/14 [History] Insulin Degludec [Tresiba Flextouch U-100] 32 unit SQ BEDTIME 12/24/16 [History] Insulin Lispro [Humalog Kwikpen U-100] 1 injection SQ ASDIRECTED 12/24/16 [ History] Metoprolol Succinate [Toprol XL] 100 mg PO QAM 12/24/16 [History] Pregabalin [Lyrica] 200 mg PO BEDTIME 12/24/16 [History] Aspirin [Allegheny Aspirin] 81 mg PO DAILY 06/26/17 [History] Calcium Carbonate 600 mg PO DAILY 06/26/17 [History] Ferrous Sulfate [Slow Release Iron] 25 mg PO DAILY 06/26/17 [History] Ibuprofen [Advil] 2 tab PO BID 06/26/17 [History] Multivitamin [Multivitamins] 1 tab PO DAILY 06/26/17 [History] amLODIPine Besylate [Amlodipine Besylate] 5 mg PO BEDTIME 06/26/17 [History] Cholecalciferol (Vitamin D3) [Vitamin D3] 400 unit PO DAILY 10/29/17 [History] Levothyroxine 25 mcg PO QAM 10/29/17 [History] Menthol [Biofreeze] 1 dose TOP ASDIRECTED PRN 10/29/17 [History] - CURRENT (IN HOUSE) MEDS Current Meds: Current Medications Bupivacaine HCl/Epinephrine Bitart (Marcaine 0.25%/Epinephrine 1:200,000) 10 ml INJECT ONETIME ONE Stop: 11/01/17 08:01 Cefazolin Sodium/Dextrose 2 gm (/ Premix) 50 mls @ 100 mls/hr IV ONETIME ONE Stop: 11/01/17 08:29 Lactated Ringer's (Ringers, Lactated) 1,000 mls @ 125 mls/hr IV ASDIRECTED [facility] Tramadol HCl (Ultram) 50 mg PO Q4H PRN PRN Reason: Pain Discontinued Medications Cefazolin Sodium/Dextrose (Ancef) Confirm Administered Dose 2 gm IV .STK-MED ONE Stop: 11/01/17 07:03 Fentanyl (Sublimaze) Confirm Administered Dose 100 mcg .ROUTE .STK-MED ONE Stop: 11/01/17 07:02 Lidocaine HCl (Xylocaine-Mpf 1%) Confirm Administered Dose 5 mls @ as directed .ROUTE .STK-MED ONE Stop: 11/01/17 07:08 Midazolam HCl (Versed 1 Mg/Ml) Confirm Administered Dose 2 mg .ROUTE .STK-MED ONE Stop: 11/01/17 07:02 Propofol (Diprivan 20 Ml) Confirm Administered Dose 200 mg .ROUTE .STK-MED ONE Stop: 11/01/17 07:02
[2017-11-01] MEDS ORDERED: ceFAZolin 2 GM in Premix Bag 1 BAG IV ONE (08:00)
[2017-11-01] MEDS ORDERED: traMADol 50 MG Tab PO PRN (08:00)
[2017-11-01] MEDS ORDERED: Lactated Ringers 1,000 ML IV SCH (08:00)
[2017-11-01] MEDS ORDERED: Bupivacaine 0.25%/EPINEPHrine 1:200,000 10 ML SDV INJECT ONE (08:00)
[2017-11-01] MEDS ORDERED: Bupivacaine 0.25%/EPINEPHrine 1:200,000 10 ML SDV ONE (08:30)
[2017-11-01] MEDS ORDERED: Tetracaine 0.5% Ophth Soln 15 ML Bottle ONE (08:38)
[2017-11-01] MEDS ORDERED: Dexamethasone/Tobramycin 0.1-0.3% Ophth Oint 3.5 GM Tube ONE (08:38)
[2017-11-01] MEDS ORDERED: Dexamethasone/Tobramycin 0.1-0.3% Ophth Susp 2.5 ML Bottle ONE (09:09)
--- NOTE | 2017-11-01 09:44 | PCM48HPAN ---
Post Anesthesia Note - EVALUATION WITHIN 48HRS OF ANESTHETIC Vital Signs in Normal Range: Yes Patient Participated in Evaluation: Yes Respiratory Function Stable: Yes Airway Patent: Yes Cardiovascular Function Stable: Yes Hydration Status Stable: Yes Pain Control Satisfactory: Yes Nausea and Vomiting Control Satisfactory: Yes Mental Status Recovered: Yes Resp Rate: 16 - COMMENTS/OBSERVATIONS Free Text/Narrative:: direct to phase 2 recovery
[2017-11-01 10:08] VITALS: BP 124/70
--- NOTE | 2017-11-07 14:46 | PCM.OPNOTE ---
- General Post-Op/Procedure Note Date of Surgery/Procedure: 11/01/17 Operative Procedure(s): bilateral upper eyelid bleaphroplasties for excess skin Pre Op Diagnosis: deramtochalasis - bilateral upper eyelids Post-Op Diagnosis: Same Anesthesia Technique: Local, MAC Primary Surgeon: Galilea Todd [employer] Preparer: Fanta Mena Complications: None Condition: Good
--- NOTE | 2017-11-07 15:09 | OR ---
SURGEON: GEOFF GALLAGHER MD DATE OF PROCEDURE: 11/01/2017 PREOPERATIVE DIAGNOSIS: Bilateral upper eyelid dermatochalasis. POSTOPERATIVE DIAGNOSIS: Bilateral upper eyelid dermatochalasis. PROCEDURE: Bilateral upper eyelid blepharoplasties for excess skin weighing down lids. TOWERMAN: LUIS Alfonso REASON FOR AND ROLE OF TOWERMAN: Retraction, prepping, draping, positioning and closure assistance. ANESTHESIA: Local MAC. INDICATIONS: Ms. Garza is a 72-year-old female seen today for bilateral upper eyelid excess skin. This is weighing down and causing visual obstruction. After risks and benefits were discussed with her thoroughly including, but not limited to, bleeding, infection, damage to underlying or overlying structures, possible need for future interventions, possible scarring. The patient was in agreement, wishes to proceed. PROCEDURE IN DETAIL: After informed consent was obtained and placed on the chart, the patient was brought to the operating theater and laid in supine position. After adequate general anesthesia was obtained, the area was prepped and draped, and a time-out was completed to confirm side and site. After adequate anesthesia, the area was anesthetized with 0.25% Marcaine with epinephrine in a field block after appropriate preoperative markings were confirmed and measured. Once adequately marked and anesthesia was obtained, the area had been prepped and draped with a Betadine cleansing solution and the elliptical incisions were made using a #15 blade. Dissection was carried until removal of all the excess skin and Bovie electrocautery was used to obtain meticulous hemostasis of the underlying tissues. Once adequate hemostasis was obtained, a single 5-0 Monocryl stitch was placed in the deeper layer and a running 6-0 Prolene was used for the skin. Symmetry procedures were completed on both eyelids to address the issue. Once completed on both eyelids and adequate symmetry was appreciated, the ends of the 6-0 Prolene for each were Steri-Stripped in place. The patient tolerated the procedure well. All counts needles were correct at the end of the case. FOLLOWUP INSTRUCTIONS: The patient will see us in 1 week, or sooner if any problems, questions, or concerns. [id number] medications for pain control as needed. HEGGTHE / MODL /[id number]
== END 2017-11-01 10:24 | disposition home or self-care (01) ==
LOC: MW.SDS 06:49
PROVIDERS: ATTEND Plastic Surgery
DX: H02.834 Dermatochalasis of left upper eyelid (principal); H02.831 Dermatochalasis of right upper eyelid; F32.9 Major depressive disorder, single episode, unspecified; E11.9 Type 2 diabetes mellitus without complications; I10 Essential (primary) hypertension; E78.00 Pure hypercholesterolemia, unspecified; M15.9 Polyosteoarthritis, unspecified; E03.9 Hypothyroidism, unspecified; Z79.82 Long term (current) use of aspirin; Z79.4 Long term (current) use of insulin; Z88.5 Allergy status to narcotic agent; Z88.8 Allergy status to other drugs, medicaments and biological substances; Z88.6 Allergy status to analgesic agent; Z79.899 Other long term (current) drug therapy; Z68.29 Body mass index [BMI] 29.0-29.9, adult
CPT/HCPCS: 15823; J0690; J2250; J2704; J3010; J3490; J7120; 00103; A9270-GY

== ENCOUNTER 2018-04-18 07:24 | Day surgery (SDC) | payer MEDICARE, OTHER ==
--- NOTE | 2018-04-18 07:59 | PCM.PREANE ---
Preanesthetic Assessment - Anesthesia/Transfusion/Family Hx Anesthesia History: Prior Anesthesia Without Reaction Family History of Anesthesia Reaction: No Transfusion History: No Prior Transfusion(s) Intubation History: Unknown - Review of Systems General: No Symptoms Pulmonary: No Symptoms Cardiovascular: No Symptoms Gastrointestinal: No Symptoms Neurological: No Symptoms Other: Reports: None - Physical Assessment NPO Status Date: 04/17/18 O2 Sat by Pulse Oximetry: 96 Respiratory Rate: 16 Vital Signs: Last Vital Signs Temp 97.2 F 04/18/18 07:50 Pulse 81 04/18/18 07:50 Resp 16 04/18/18 07:50 BP 133/68 04/18/18 07:50 Pulse Ox 96 04/18/18 07:50 Height: 5 ft 4 in Weight: 82.1 kg ASA Class: 2 Mental Status: Alert & Oriented x3 Airway Class: Mallampati = 1 Dentition: Reports: Normal Dentition (loose central maxillary implant) ROM/Head Extension: Full Lungs: Clear to Auscultation, Normal Respiratory Effort Cardiovascular: Regular Rate, Regular Rhythm - Allergies Allergies/Adverse Reactions: Allergies Allergy/AdvReac Type Severity Reaction Status Date / Time cyclobenzaprine Allergy Other Verified 04/17/18 09:40 [From Flexeril] ketorolac Allergy Other Verified 04/17/18 09:40 meperidine [From Demerol] Allergy Change Verified 04/17/18 09:40 Mental Status nabumetone [From Relafen] Allergy nightmares Verified 04/17/18 09:40 - Blood Blood Available: No - Anesthesia Plan Pre-Op Medication Ordered: None - Acknowledgements Anesthesia Type Planned: General Anesthesia Pt an Appropriate Candidate for the Planned Anesthesia: Yes Alternatives and Risks of Anesthesia Discussed w Pt/Guardian: Yes Pt/Guardian Understands and Agrees with Anesthesia Plan: Yes Additional Comments: glucose 175 plan [id number] PreAnesthesia Questionnaire HEENT History: Reports: Other (See Below) Other HEENT History: uses reading glasses Cardiovascular History: Reports: High Cholesterol, Hypertension Respiratory History: Reports: None Gastrointestinal History: Genitourinary History: Reports: None Other Genitourinary History: recent UTI 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 ASSISTANT History: Reports: Musculoskeletal History: Reports: Arthritis, Fracture, Osteoporosis Other Musculoskeletal History: hx of fx wrist and foot x2 Neurological History: Psychiatric History: Reports: Depression, Other (See Below) Other Psychiatric History: very Claustrophobic Endocrine/Metabolic History: Reports: Diabetes, Type II, Hypothyroidism, IDDM, Obesity/BMI 30+ Hematologic History: Reports: Anemia Immunologic History: Reports: None Oncologic (Cancer) History: Reports: None Dermatologic History: Reports: None - Infectious Disease History Infectious Disease History: Reports: Chicken Pox, Measles, Mumps - Past Surgical History Head Surgeries/Procedures: Reports: None HEENT Surgical History: Reports: Tonsillectomy Female Surgical History: Reports: Breast Biopsy, Hysterectomy, Salpingo- Oophorectomy Neurological Surgical History: Reports: C-Spine, Laminectomy, Spinal Fusion Other Neurological Surgeries/Procedures: hardware in back and neck Musculoskeletal Surgical History: Reports: Carpal Tunnel, Shoulder Replacement, Other (See Below) Other Musculoskeletal Surgeries/Procedures:: bilateral TSA, tendon repair in foot - SUBSTANCE USE Smoking Status *Q: Never Smoker Recreational Drug Use History: No - HOME MEDS Home Medications: Home Meds Liraglutide [Victoza] 1.2 mg SUBCUT QAM 09/27/14 [History] PARoxetine [Paxil] 20 mg PO DAILY 09/27/14 [History] Ramipril [Altace] 10 mg PO DAILY 09/27/14 [History] Simvastatin [Zocor] 10 mg PO BEDTIME 09/27/14 [History] metFORMIN [Glucophage XR] 500 mg PO WITHMEALSANDBED 09/27/14 [History] Insulin Degludec [Tresiba Flextouch U-100] 40 unit SQ BEDTIME 12/24/16 [History] Insulin Lispro [Humalog Kwikpen U-100] 1 injection SQ ASDIRECTED 12/24/16 [ History] Metoprolol Succinate [Toprol XL] 100 mg PO QAM 12/24/16 [History] Pregabalin [Lyrica] 100 mg PO TID 12/24/16 [History] Aspirin [[place] Aspirin EC] 81 mg PO DAILY 06/26/17 [History] Calcium Carbonate 600 mg PO DAILY 06/26/17 [History] Ferrous Sulfate [Slow Release Iron] 50 mg PO DAILY 06/26/17 [History] Ibuprofen [Advil] 2 tab PO BID 06/26/17 [History] Multivitamin [Multivitamins] 1 tab PO DAILY 06/26/17 [History] amLODIPine Besylate [Amlodipine Besylate] 5 mg PO BEDTIME 06/26/17 [History] Cholecalciferol (Vitamin D3) [Vitamin D3] 400 unit PO DAILY 10/29/17 [History] Levothyroxine 25 mcg PO QAM 10/29/17 [History] - CURRENT (IN HOUSE) MEDS Current Meds: Current Medications Bupivacaine HCl/Epinephrine Bitart (Marcaine 0.25%/Epinephrine 1:200,000) 30 ml INJECT ONETIME ONE Stop: 04/18/18 08:01 Cefazolin Sodium/Dextrose 2 gm (/ Premix) 50 mls @ 100 mls/hr IV ONETIME ONE Stop: 04/18/18 08:29 Lactated Ringer's (Ringers, Lactated) 1,000 mls @ 125 mls/hr IV ASDIRECTED [facility] Tramadol HCl (Ultram) 50 mg PO Q4H PRN PRN Reason: Pain
[2018-04-18] MEDS ORDERED: Bupivacaine 0.25%/EPINEPHrine 1:200,000 10 ML SDV INJECT ONE (08:00)
[2018-04-18] MEDS ORDERED: ceFAZolin 2 GM in Premix Bag 1 BAG IV ONE (08:00)
[2018-04-18] MEDS ORDERED: Lactated Ringers 1,000 ML IV SCH (08:00)
[2018-04-18] MEDS ORDERED: traMADol 50 MG Tab PO PRN (08:00)
[2018-04-18] MEDS ORDERED: Lidocaine 2% 5 ML SDV ONE (08:23)
[2018-04-18] MEDS ORDERED: Propofol 200 MG/20 ML SDV ONE (08:23)
[2018-04-18] MEDS ORDERED: Midazolam 1 MG/ML 2 ML SDV ONE (08:23)
[2018-04-18] MEDS ORDERED: fentaNYL 100 MCG/2 ML SDV ONE (08:23)
[2018-04-18] MEDS ORDERED: Bupivacaine 25%/EPINEPHrine/PF 30 ML ONE (08:55)
[2018-04-18] MEDS ORDERED: ceFAZolin/Dextrose,Iso-Osmotic 2 GM/50 ML Duplex Bag IV ONE (09:28)
[2018-04-18] MEDS ORDERED: Ondansetron 4 MG/2 ML SDV ONE (09:56)
--- NOTE | 2018-04-18 10:39 | PCM.OPNOTE ---
- General Post-Op/Procedure Note Date of Surgery/Procedure: 04/18/18 Operative Procedure(s): Right ulnar nerve release at the elbow (cubital tunnel) and right carpal tunnel release Pre Op Diagnosis: right cubital and carpal tunnel syndrome Post-Op Diagnosis: Same Anesthesia Technique: Local, MAC Primary Surgeon: Galilea Todd Complications: None Condition: Good
--- NOTE | 2018-04-18 10:57 | PCM.POSTAN ---
POST ANESTHESIA ASSESSMENT - MENTAL STATUS Mental Status: Alert, Oriented - RESPIRATORY Respiratory Status: Respiratory Rate WNL, Airway Patent, O2 Saturation Stable - CARDIOVASCULAR CV Status: Pulse Rate WNL, Blood Pressure Stable - GASTROINTESTINAL GI Status: No Symptoms - POST OP HYDRATION Hydration Status: Adequate & Stable
--- NOTE | 2018-04-18 10:57 | PCM48HPAN ---
Post Anesthesia Note - EVALUATION WITHIN 48HRS OF ANESTHETIC Vital Signs in Normal Range: Yes Patient Participated in Evaluation: Yes Respiratory Function Stable: Yes Airway Patent: Yes Cardiovascular Function Stable: Yes Hydration Status Stable: Yes Pain Control Satisfactory: Yes Nausea and Vomiting Control Satisfactory: Yes Mental Status Recovered: Yes Resp Rate: 13
[2018-04-18 11:09] VITALS: BP 136/72
--- NOTE | 2018-04-21 17:23 | OR ---
SURGEON: GEOFF GALLAGHER MD DATE OF PROCEDURE: 04/18/2018 PREOPERATIVE DIAGNOSES: 1. Right ulnar nerve compression at the elbow. 2. Right carpal tunnel syndrome. POSTOPERATIVE DIAGNOSES: 1. Right ulnar nerve compression at the elbow. 2. Right carpal tunnel syndrome. PROCEDURES: 1. Right ulnar nerve release at the elbow (cubital tunnel). 2. Right carpal tunnel release. PERL SOFTWARE ENGINEER: None. ANESTHESIA: Local MAC. INDICATIONS: Ms. Garza is a 72-year-old female, seen today in evaluation with compression of the right upper extremity nerves with the elbow ulnar nerve and wrist median nerve. Risks and benefits of release were discussed with her and she was in agreement to proceed. Risks were including, but not limited to, bleeding, infection, damage to underlying or overlying structures, possible need for future interventions, and possible scarring. PROCEDURE IN DETAIL: After informed consent was obtained and placed on the chart, the patient was brought to the operating theater and laid in supine position. After adequate local MAC anesthesia was obtained, the area was prepped and draped, and a time- out was completed to confirm side and site. 0.25% Marcaine with epinephrine was injected into the area for block. Once adequately anesthetized, attention was then paid to exsanguination of the arm and insufflation of the tourniquet. Attention was then paid to dissection of the right carpal tunnel first and carpal tunnel site, and dissection was carried through skin and subcutaneous tissues using a #15 blade until breach of the ligament. Once adequately breached, dissection was carried distally and proximally until complete release of the ligament. Once adequately released, the area was copiously irrigated and closed using 5-0 nylon stitch in a horizontal mattress fashion. The wound was dressed with Xeroform fluffs, and a Kerlix gauze dressing, and a 2-inch Phil wrap. Attention was then paid to the right ulnar nerve and the elbow was placed in a bent position. Curvilinear incision was made over the cubital tunnel itself and dissection was carried down through skin and subcutaneous tissues first with a #15 blade and then with Littler scissors to protect any cutaneous nerves. Once the tunnel itself was reached, attention was then paid to meticulous dissection until the nerve was located. Once the nerve was located, dissection of the cubital tunnel was undertaken and the tunnel itself was quite tight and the nerve itself was freed. Dissection was then carried distally under direct visualization until complete release of the proximal the flexor carpi ulnaris with finger passage. Meticulous hemostasis was obtained here and dissection was then carried proximally into the arm until complete release of the brachial fascia. Once adequately released, the nerve was sitting appropriately. The tourniquet was deflated and meticulous hemostasis was obtained. The area was irrigated and closed using deep 3-0 Monocryl in an interrupted fashion in a running 4-0 subcuticular for the skin. The wound was dressed with Steri-Strips. The patient tolerated this well, and all counts and needles were correct at the end of the case. The wound was dressed with Steri-Strips and fluffs as well as an Phil wrap. All counts and needles were correct at the end of the case. FOLLOWUP INSTRUCTIONS: The patient will see us in 10 to 14 days, sooner if any problems, questions, or concerns. HEAQUILES / LENO /[id number] MTDKaren
== END 2018-04-18 11:10 | disposition home or self-care (01) ==
LOC: MW.SDS 07:24
PROVIDERS: ATTEND Plastic Surgery
DX: G56.01 Carpal tunnel syndrome, right upper limb (principal); G56.21 Lesion of ulnar nerve, right upper limb; D64.9 Anemia, unspecified; E11.9 Type 2 diabetes mellitus without complications; I10 Essential (primary) hypertension; E66.9 Obesity, unspecified; Z68.31 Body mass index [BMI] 31.0-31.9, adult; E78.00 Pure hypercholesterolemia, unspecified; Z79.82 Long term (current) use of aspirin; Z79.4 Long term (current) use of insulin; Z79.899 Other long term (current) drug therapy; Z88.5 Allergy status to narcotic agent
CPT/HCPCS: 64718; 64721; J0690; J2001; J2250; J2405; J2704; J3010; J7120; 01810

== ENCOUNTER 2020-09-12 17:47 | Observation (INO) | payer MEDICARE, OTHER ==
--- NOTE | 2020-09-12 18:01 | PCM.EKG ---
#1 Interpretation EKG Date: 09/12/20 Time: 17:48 Rhythm: NSR Rate (Beats/Min): 102 [place]: LAD-Left [place] Deviation P-Wave: Present QRS: Normal ST-T: Normal QT: Normal Comparison: NA - No Prior EKG EKG Interpretation Comments: Sinus Tachycardia with PAC
--- NOTE | 2020-09-12 18:20 | CR ---
For Patients: As a result of the Cures Act, medical imaging exams and procedure reports are released immediately into your electronic medical record. You may view this report before your referring provider. If you have questions, please contact your health care provider. INDICATION: Hypoxia TECHNIQUE: Chest 1 view. COMPARISON: None FINDINGS: Cardiovascular and mediastinum: Heart size and vasculature are normal in caliber and appearance. Mediastinum is within normal limits. Lungs and pleural space: Lungs are clear. No sign of infiltrate or mass. No sign of pleural effusion. No pneumothorax. Bones and soft tissues: Bilateral shoulder arthroplasties. IMPRESSION: Unremarkable chest. Dictated by Myke Stovall MD @ 09/12/2020 6:18:57 PM Dictated by: Myke Stovall MD @ 09/12/2020 18:19:02 (Electronically Signed)
[2020-09-12 18:28] LABS: BLOOD UREA NITROGEN,BUN 19 mg/dL (7.0-18.0); CARBON DIOXIDE,CO2 30.6 mmol/L (21.0-32.0); CHLORIDE,CL 101 mmol/L (98-107); GLUCOSE RANDOM 115 mg/dL (74-106); POTASSIUM,K 4.1 mmol/L (3.5-5.1); SODIUM,NA 141 mmol/L (136-145)
[2020-09-12] MEDS ORDERED: Iopamidol 755 MG/ML 500 ML Multipack Bottle IVPUSH ONE (19:00)
--- NOTE | 2020-09-12 19:11 | EDM.PDOC ---
<Jose Alejandro Quiroga - Last Filed: 09/12/20 19:11> ED HPI GENERAL MEDICAL PROBLEM - General Chief Complaint: General Stated Complaint: DIABETES COMPLICATIONS Time Seen by Provider: 09/12/20 17:56 - History of Present Illness INITIAL COMMENTS - FREE TEXT/NARRATIVE: CHIEF COMPLAINT(S): "I felt cold and shaky." HISTORY OF PRESENT ILLNESS: This is a 75-year-old woman with a past medical history of diabetes mellitus, peripheral neuropathy, hypertension who presents to the emergency department with a chief complaint of "I felt cold and shaky. The patient states that she was feeling good all day and they went home and she had some watermelon and nuts. She states that she checked her glucose which was 258 and she took her insulin. She states that she she suddenly became cold, shaking and had muscle spasms which radiate from her right buttock all the way up to her neck and down her leg. She states that she did become sweaty at this time. She states that they called the ambulance because she has never had like this before. They checked her glucose which was 158. This she states is her normal drop in glucose. She states in addition to that she had a mild aching anterior chest pain which she rates as 8 out of 10 without any radiation. She denies any associated shortness of breath, nausea or vomiting. She denies any radiation of this pain. She states that there is no aggravating factor or relieving factor. She denies any headache, blurry vision, numbness, tingling, weakness. She denies any recent travel, recent surgery, prior history of DVT or PE. She denies any fever, runny nose, congestion, or cough REVIEW OF SYSTEMS: Constitutional: Denies fever, chills. Eyes: Denies eye pain Ears, Nose, Mouth, & Throat: Denies earache, runny nose, congestion Cardiovascular: Positive for chest pain Respiratory: Denies shortness of breath or cough. Gastrointestinal: Denies abdominal pain, nausea, vomiting, diarrhea, hematochezia. Genitourinary: Denies hematuria, dysuria Skin:Denies a rash MSK: Positive for muscle spasm of the right buttock which radiates to her right jaw and down her right leg. Neurological: Denies blurred vision, numbness, tingling, weakness Psychiatric: Denies depression PAST MEDICAL HISTORY: As per history of present illness and as reviewed below otherwise noncontributory. SURGICAL HISTORY: As per history of present illness and as reviewed below other shin noncontributory. SOCIAL HISTORY: As per history of present illness and as reviewed below otherwise noncontributory. FAMILY HISTORY: As per history of present illness and as reviewed below other shin noncontributory. EXAMINATION OF ORGAN SYSTEMS/BODY AREAS: VITALS: Blood pressure is 143/78, heart rate 97, respiratory rate 18 with an oxygen saturation of 90% on room air. Temperature 36.4. GENERAL: The patient is well-nourished, well-developed, in no acute distress. No diaphoresis. The patient does appear pale. HEAD: Normocephalic, atraumatic. EYES: EOMs intact. PERRL. ENT. External ears WNL. Nares patent. Oropharynx is clear with no erythema or exudate. No uvular or tongue swelling. NECK: Supple, no masses. Trachea is midline. LUNGS: No tachypnea or intercostal retractions. Clear to auscultation bilaterally, no wheezing, no rales, no stridor, no rhonchi. CARDIOVASCULAR: Regular rate and rhythm with S1-S2. No murmur, rubs or gallops. No edema. No JVD. ABDOMEN: Soft, non-distended, non-tender. Bowel sounds present in all 4 quadrants. No rebound tenderness, guarding, or peritoneal signs. MUSCULOSKELETAL: No deformity. Patient is moving all 4 limbs spontaneously. NEUROLOGICAL: Alert and oriented x 3. No focal neurological deficits noted. SKIN: No rashes, or pallor. No signs of injury. MEDICAL DECISION MAKING AND COURSE IN THE ED WITH INTERPRETATION/REVIEW OF DIAGNOSTIC STUDIES: This is a 75-year-old woman with a past medical history of diabetes mellitus, peripheral neuropathy, hypertension who presents to the emergency department with a chief complaint of "I felt cold and shaky." Who has some chest pain who is not experiencing any shortness of breath who is hypoxic on room air but does not appear to be in acute distress. Immediately upon entering the resuscitation room the patient was disrobed, placed on continuous cardiac monitoring, and IV access was established by nursing. Patient is able to speak thus displaying a patent airway, breath sounds are equal bilaterally, and patient has palpable pulses in all 4 extremities. We did obtain an EKG which was unremarkable. bus driver/monitor at this time did reveal sinus rhythm and pulse oximetry with good waveform was 90 to 91% on room air. Differential does include ACS. Will obtain a cardiac work-up. Given the hypoxia we will obtain a an angiogram of the chest to evaluate for pulmonary embolism. Laboratory: CBC is unremarkable. INR is normal. CMP there is elevated BUN at 19 and hyperglycemia at 115 otherwise unremarkable. Troponin is negative. CPK is normal The radiological images were viewed by myself along with reading the report from the radiologist. Chest x-ray does not reveal any acute cardiopulmonary process. At the time of signout patient was pending repeat troponin and angiogram of the chest. The patient will likely need observation admission for chest pain given her risk factors. Heart Score History: Moderately Suspicious (1) ECG: Non-specific repolarization (1) Age:>65 (2) Risk Factors:>/= 3 (2) Initial Troponin: </= normal limit (0) Total Score: 6 DISPOSITION: Patient was signed out to oncoming night team physician pending further work-up and reevaluation CONDITION: Fair PROCEDURES: Cardiac monitoring interpretation, pulse oximetry interpretation FINAL IMPRESSION(S)/DIAGNOSES: 1. Acute hypoxia 2. Acute chest pain back/neck/jaw Pain Score (Numeric/FACES): 8 - Related Data Allergies Allergy/AdvReac Type Severity Reaction Status Date / Time cyclobenzaprine Allergy Other Verified 09/15/20 01:55 [From Flexeril] ketorolac Allergy Other Verified 09/15/20 01:55 meperidine [From Demerol] Allergy Change Verified 09/15/20 01:55 Mental Status nabumetone [From Relafen] Allergy nightmares Verified 09/15/20 01:55 Home Meds: Home Meds Liraglutide [Victoza] 1.2 mg SUBCUT QAM 09/27/14 [History] PARoxetine [Paxil] 20 mg PO DAILY 09/27/14 [History] Simvastatin [Zocor] 10 mg PO BEDTIME 09/27/14 [History] metFORMIN [Glucophage XR] 500 mg PO WITHMEALSANDBED 09/27/14 [History] ramipriL [Altace] 20 mg PO DAILY 09/27/14 [History] Insulin Degludec [Tresiba Flextouch U-100] 58 unit SQ BEDTIME 12/24/16 [History] Insulin Lispro [Humalog Kwikpen U-100] 17 unit SQ WITHBREAKFAST 12/24/16 [History] Metoprolol Succinate [Toprol XL] 100 mg PO QAM 12/24/16 [History] Pregabalin [Lyrica] 100 mg PO WITHMEALSANDBED 12/24/16 [History] Ibuprofen [Advil] 200 mg PO BID 06/26/17 [History] Multivitamin [Multivitamins] 1 tab PO DAILY 06/26/17 [History] amLODIPine Besylate [Amlodipine Besylate] 5 mg PO BEDTIME 06/26/17 [History] Cholecalciferol (Vitamin D3) [Vitamin D3] 400 unit PO DAILY 10/29/17 [History] Levothyroxine 25 mcg PO QAM 10/29/17 [History] Cinnamon Bark [Cinnamon] 1 mg PO DAILY 09/12/20 [History] Fish Oil/Borage/Flax/Om3,6,9 1 [[place] 3-6-9 Complex Softgel] 400 mg PO DAILY 09/12/20 [History] Insulin Lispro [Humalog Kwikpen U-100] 7 units SUBCUT WITHLUNCH 09/13/20 [History] Insulin Lispro [Humalog Kwikpen U-100] 15 unit SQ WITHDINNER 09/13/20 [History] levoFLOXacin [Levaquin] 750 mg PO DAILY #7 tab 09/18/20 [Rx] Past Medical History HEENT History: Reports: Other (See Below) Other HEENT History: uses reading glasses Cardiovascular History: Reports: High Cholesterol, Hypertension Respiratory History: Reports: None Gastrointestinal History: Genitourinary History: Reports: None Other Genitourinary History: recent UTI [employer] History: Reports: Musculoskeletal History: Reports: Arthritis, Fracture, Osteoporosis Other Musculoskeletal History: hx of fx wrist and foot x2 Neurological History: Psychiatric History: Reports: Depression, Other (See Below) Other Psychiatric History: very Claustrophobic Endocrine/Metabolic History: Reports: Diabetes, Type II, Hypothyroidism, IDDM, Obesity/BMI 30+ Hematologic History: Reports: Anemia Immunologic History: Reports: None Oncologic (Cancer) History: Reports: None Dermatologic History: Reports: None - Infectious Disease History Infectious Disease History: Reports: Chicken Pox, Measles, Mumps - Past Surgical History Head Surgeries/Procedures: Reports: None HEENT Surgical History: Reports: Tonsillectomy GI Surgical History: Reports: Appendectomy Female Surgical History: Reports: Breast Biopsy, Hysterectomy, Salpingo- Oophorectomy Neurological Surgical History: Reports: C-Spine, Laminectomy, Spinal Fusion Other Neurological Surgeries/Procedures: hardware in back and neck Musculoskeletal Surgical History: Reports: Carpal Tunnel, Shoulder Replacement, Other (See Below) Other Musculoskeletal Surgeries/Procedures:: bilateral TSA, tendon repair in foot Social & Family History - Family History Family Medical History: No Pertinent Family History - Tobacco Use Tobacco Use Status *Q: Never Tobacco User - Recreational Drug Use Recreational Drug Use: No ED ROS GENERAL - Review of Systems Review Of Systems: See Below ED EXAM, GENERAL - Physical Exam Exam: See Below Departure - Departure Disposition: Admitted As Inpatient 67 Clinical Impression: Chest pain, Hypoxia - Discharge Information Sepsis Event Note (ED) - Evaluation Sepsis Screening Result: No Definite Risk <Manjit Alfaro - Last Filed: 09/19/20 15:55> ED HPI GENERAL MEDICAL PROBLEM back, left foot Pain Score (Numeric/FACES): 7 Course - Vital Signs Last Recorded V/S: Last Vital Signs Temp 97.9 F 09/14/20 11:21 Pulse 82 09/14/20 11:21 Resp 16 09/14/20 11:21 BP 144/75 H 09/14/20 11:21 Pulse Ox 93 L 09/14/20 12:38 - Orders/Labs/Meds Labs: Laboratory Tests 09/12/20 09/12/20 09/12/20 Range/Units 17:52 17:52 17:52 WBC 5.04 (4.0-11.0) K/uL RBC 4.25 L (4.30-5.90) M/uL Hgb 12.5 (12.0-16.0) g/dL Hct 38.3 (36.0-46.0) % MCV 90.1 (80.0-98.0) fL MCH 29.4 (27.0-32.0) pg MCHC 32.6 (31.0-37.0) g/dL RDW Std Deviation 48.6 (28.0-62.0) fl RDW Coeff of Kaylin 15 (11.0-15.0) % Plt Count 215 (150-400) K/uL MPV 9.80 (7.40-12.00) fL Add Manual Diff YES Neutrophils % (Manual) 43 L (48.0-80.0) % Band Neutrophils % 36 % Lymphocytes % (Manual) 16 (16.0-40.0) % Monocytes % (Manual) 1 (0.0-15.0) % Metamyelocytes % 1 % Myelocytes % 3 % Nucleated RBC % 0.0 /100WBC Absolute Seg Neuts 2.2 (1.4-5.7) Band Neutrophils # 1.8 Lymphocytes # (Manual) 0.8 (0.6-2.4) Monocytes # (Manual) 0.1 (0.0-0.8) Absolute Metamyelocyte 0.1 Absolute Myelocytes 0.2 Nucleated RBCs # 0 K/uL INR 1.13 ABG pH (7.35-7.45) ABG pCO2 (35-45) mmHG ABG pO2 (80-105) mmHG ABG HCO3 (22-26) mEq/L ABG Total CO2 (23-27) mmol/L ABG Base Excess (-2.0-3.0) Sodium 141 (136-145) mmol/L Potassium 4.1 (3.5-5.1) mmol/L Chloride 101 (98-107) mmol/L Carbon Dioxide 30.6 (21.0-32.0) mmol/L BUN 19 H (7.0-18.0) mg/dL Creatinine 0.8 (0.6-1.0) mg/dL Est Cr Clr Drug Dosing 53.28 mL/min Estimated GFR (MDRD) > 60.0 ml/min Glucose 115 H (74-106) mg/dL Calcium 9.0 (8.5-10.1) mg/dL Magnesium (1.8-2.4) mg/dL Total Bilirubin 0.5 (0.2-1.0) mg/dL AST 22 (15-37) IU/L ALT 28 (14-63) IU/L Alkaline Phosphatase 75 (46-116) U/L Creatine Kinase 83 (26-308) U/L Troponin I < 0.050 (0.000-0.056) ng/mL B-Natriuretic Peptide (<100) PG/ML Total Protein 7.6 (6.4-8.2) g/dL Albumin 3.7 (3.4-5.0) g/dL Globulin 3.9 (2.6-4.0) g/dL Albumin/Globulin Ratio 0.9 (0.9-1.6) 09/12/20 09/12/20 09/12/20 Range/Units 17:52 21:00 21:00 WBC (4.0-11.0) K/uL RBC (4.30-5.90) M/uL Hgb (12.0-16.0) g/dL Hct (36.0-46.0) % MCV (80.0-98.0) fL MCH (27.0-32.0) pg MCHC (31.0-37.0) g/dL RDW Std Deviation (28.0-62.0) fl RDW Coeff of Kaylin (11.0-15.0) % Plt Count (150-400) K/uL MPV (7.40-12.00) fL Add Manual Diff Neutrophils % (Manual) (48.0-80.0) % Band Neutrophils % % Lymphocytes % (Manual) (16.0-40.0) % Monocytes % (Manual) (0.0-15.0) % Metamyelocytes % % Myelocytes % % Nucleated RBC % /100WBC Absolute Seg Neuts (1.4-5.7) Band Neutrophils # Lymphocytes # (Manual) (0.6-2.4) Monocytes # (Manual) (0.0-0.8) Absolute Metamyelocyte Absolute Myelocytes Nucleated RBCs # K/uL INR ABG pH (7.35-7.45) ABG pCO2 (35-45) mmHG ABG pO2 (80-105) mmHG ABG HCO3 (22-26) mEq/L ABG Total CO2 (23-27) mmol/L ABG Base Excess (-2.0-3.0) Sodium (136-145) mmol/L Potassium (3.5-5.1) mmol/L Chloride (98-107) mmol/L Carbon Dioxide (21.0-32.0) mmol/L BUN (7.0-18.0) mg/dL Creatinine (0.6-1.0) mg/dL Est Cr Clr Drug Dosing mL/min Estimated GFR (MDRD) ml/min Glucose (74-106) mg/dL Calcium (8.5-10.1) mg/dL Magnesium 1.5 L (1.8-2.4) mg/dL Total Bilirubin (0.2-1.0) mg/dL AST (15-37) IU/L ALT (14-63) IU/L Alkaline Phosphatase (46-116) U/L Creatine Kinase 72 (26-308) U/L Troponin I < 0.050 (0.000-0.056) ng/mL B-Natriuretic Peptide 12 (<100) PG/ML Total Protein (6.4-8.2) g/dL Albumin (3.4-5.0) g/dL Globulin (2.6-4.0) g/dL Albumin/Globulin Ratio (0.9-1.6) 09/12/20 Range/Units 21:46 WBC (4.0-11.0) K/uL RBC (4.30-5.90) M/uL Hgb (12.0-16.0) g/dL Hct (36.0-46.0) % MCV (80.0-98.0) fL MCH (27.0-32.0) pg MCHC (31.0-37.0) g/dL RDW Std Deviation (28.0-62.0) fl RDW Coeff of Kaylin (11.0-15.0) % Plt Count (150-400) K/uL MPV (7.40-12.00) fL Add Manual Diff Neutrophils % (Manual) (48.0-80.0) % Band Neutrophils % % Lymphocytes % (Manual) (16.0-40.0) % Monocytes % (Manual) (0.0-15.0) % Metamyelocytes % % Myelocytes % % Nucleated RBC % /100WBC Absolute Seg Neuts (1.4-5.7) Band Neutrophils # Lymphocytes # (Manual) (0.6-2.4) Monocytes # (Manual) (0.0-0.8) Absolute Metamyelocyte Absolute Myelocytes Nucleated RBCs # K/uL INR ABG pH 7.45 (7.35-7.45) ABG pCO2 38 (35-45) mmHG ABG pO2 69 L (80-105) mmHG ABG HCO3 27 H (22-26) mEq/L ABG Total CO2 24.2 (23-27) mmol/L ABG Base Excess 2.5 (-2.0-3.0) Sodium (136-145) mmol/L Potassium (3.5-5.1) mmol/L Chloride (98-107) mmol/L Carbon Dioxide (21.0-32.0) mmol/L BUN (7.0-18.0) mg/dL Creatinine (0.6-1.0) mg/dL Est Cr Clr Drug Dosing mL/min Estimated GFR (MDRD) ml/min Glucose (74-106) mg/dL Calcium (8.5-10.1) mg/dL Magnesium (1.8-2.4) mg/dL Total Bilirubin (0.2-1.0) mg/dL AST (15-37) IU/L ALT (14-63) IU/L Alkaline Phosphatase (46-116) U/L Creatine Kinase (26-308) U/L Troponin I (0.000-0.056) ng/mL B-Natriuretic Peptide (<100) PG/ML Total Protein (6.4-8.2) g/dL Albumin (3.4-5.0) g/dL Globulin (2.6-4.0) g/dL Albumin/Globulin Ratio (0.9-1.6) Meds: Medications Discontinued Medications Generic Name Dose Route Start Last Admin Trade Name Freq PRN Reason Stop Dose Admin Amlodipine Besylate 5 mg 09/13/20 21:00 09/13/20 21:19 Amlodipine 5 Mg Tab PO 5 mg BEDTIME RODERICK Administration Baclofen 5 mg 09/13/20 00:46 09/13/20 01:05 Baclofen 10 Mg Tab PO 09/13/20 00:47 5 mg ONETIME ONE Administration Dextrose/Water 50 ml 09/13/20 00:44 50% Dextrose In Water 50 Ml Syringe IVPUSH ASDIRECTED PRN Hypoglycemia Glucagon 1 mg 09/13/20 00:44 Glucagon,Human Recombinant 1 Mg Vial IM ASDIRECTED PRN Hypoglycemia Levofloxacin/Dextrose 750 mg/ 150 mls @ 100 mls/hr 09/13/20 01:00 09/13/20 01:07 Premix IV 100 mls/hr Q24H RODERICK Administration Magnesium Sulfate 2 gm/ Premix 50 mls @ 12.5 mls/hr 09/13/20 04:05 09/13/20 04:32 IV 09/13/20 08:04 12.5 mls/hr NOW STA Administration Sodium Chloride 1,000 mls @ 999 mls/hr 09/13/20 04:59 09/13/20 05:13 Normal Saline IV 09/13/20 05:59 999 mls/hr .Bolus ONE Administration Sodium Chloride 1,000 mls @ 150 mls/hr 09/13/20 06:00 09/14/20 03:45 Normal Saline IV 150 mls/hr ASDIRECTED RODERICK Administration Levofloxacin/Dextrose 750 mg/ 150 mls @ 100 mls/hr 09/14/20 09:00 09/14/20 08:38 Premix IV 100 mls/hr Q24H RODERICK Administration Insulin Aspart 0 unit 09/13/20 07:30 09/14/20 11:53 Insulin Aspart 100 Units/Ml 3 Ml Pen SUBCUT 1 unit TIDAC RODERICK Administration Protocol Insulin Glargine 58 units 09/13/20 21:00 09/13/20 21:20 Insulin Glargine,Human Rec. Analog 100 Units/Ml 3 Ml Pen SUBCUT 58 units BEDTIME RODERICK Administration Insulin Glargine 50 units 09/13/20 04:03 09/13/20 04:26 Insulin Glargine,Human Rec. Analog 100 Units/Ml 3 Ml Pen SUBCUT 09/13/20 04:04 50 units ONETIME ONE Administration Iopamidol 100 ml 09/12/20 19:00 09/12/20 19:01 Iopamidol 755 Mg/Ml 500 Ml Multipack Bottle IVPUSH 09/12/20 19:01 100 ml ONETIME ONE Administration Levofloxacin 250 mg 09/14/20 09:21 09/14/20 09:44 Levofloxacin 250 Mg Tab PO 09/14/20 09:22 250 mg Q24H ONE Administration Levothyroxine Sodium 25 mcg 09/13/20 09:00 09/14/20 08:53 Levothyroxine 25 Mcg Tab PO 25 mcg QAM RODERICK Administration Metformin HCl 500 mg 09/13/20 08:00 09/14/20 12:18 Metformin 500 Mg Tab.Er PO 500 mg WITHMEALSANDBED RODERICK Administration Metoprolol Succinate 100 mg 09/13/20 09:00 09/14/20 08:55 Metoprolol Succinate 100 Mg Tab.Er PO 100 mg QAM RODERICK Administration Paroxetine HCl 20 mg 09/13/20 09:00 09/14/20 08:53 Paroxetine 20 Mg Tab PO 20 mg DAILY RODERICK Administration Potassium Chloride 40 meq 09/14/20 09:16 09/14/20 09:45 Potassium Chloride 20 Meq Tab.Er PO 09/14/20 09:17 40 meq ONETIME ONE Administration Pregabalin 100 mg 09/13/20 08:04 09/14/20 12:19 Pregabalin 50 Mg Cap PO 100 mg WITHMEALSANDBED RODERICK Administration Ramipril 20 mg 09/13/20 09:00 09/14/20 08:59 Ramipril 10 Mg Cap PO 20 mg DAILY RODERICK Administration Simvastatin 10 mg 09/13/20 21:00 09/13/20 21:19 Simvastatin 10 Mg Tab PO 10 mg BEDTIME RODERICK Administration - Re-Assessments/Exams Free Text/Narrative Re-Assessment/Exam: 09/12/20 19:57 Patient desat to 86% on room air, placed back on 3 L nasal cannula. 09/12/20 22:05 Case discussed with hospitalist, who agrees to admit patient. The hospitalist's documentation supersedes all other documentation on this patient with regard to any conflicts or discrepancies from this point forward. Any emergency conditions have been treated to the ability of the ED prior to admission. Departure - Departure Time of Disposition: 22:00 Condition: Good
--- NOTE | 2020-09-12 20:34 | CT ---
INDICATION: Hypoxia. COMPARISON: Chest radiograph from today. TECHNIQUE: CT examination of the chest was performed with the uneventful intravenous administration of 100 cc of Isovue 370 while 1 and 1.5 mm thick axial sections were obtained through the pulmonary arteries. Please note that all CT scans at this facility use dose modulation, iterative reconstruction, and/or weight-based dosing when appropriate to reduce radiation dose to as low as reasonably achievable. FINDINGS: : There is no sign of pulmonary embolism, with normal enhancement and branching of the pulmonary arteries. There is mild patchy dependent density in the posterior lung bases, consistent with atelectasis. There is also with mild peripheral honeycombing consistent with mild UIP. There is minimal peripheral consolidation in the left lateral upper lobe toward the lung base, probably scarring. There is no sign of mediastinal or hilar mass or adenopathy. There is mild LAD and LCX coronary calcification. There may be a stent in the proximal LCX. The heart is otherwise normal in appearance for the patient`s age. There is age appropriate appearance of the thoracic aorta and ascending great vessels. There is no sign of supraclavicular or axillary mass or adenopathy. The visualized superior liver, spleen, pancreas, kidneys, and adrenals are normal in appearance. There is a metallic plate from anterior cervical fusion. The components of bilateral total shoulder prostheses are in anatomic alignment with no sign of fracture, loosening, or dislocation. There is no sign of fracture of the [place] osseous structures. IMPRESSION: No sign of pulmonary embolism. Mild patchy posterior basilar atelectasis. Mild peripheral basilar honeycombing consistent with UIP. Please note that all CT scans at this facility use dose modulation, iterative reconstruction, and/or weight-based dosing when appropriate to reduce radiation dose to as low as reasonably achievable. Dictated by Hugo Steiner MD @ 09/12/2020 8:33:[address] Hugo Steiner @ Sep 12 2020 8:33PM
[2020-09-12 22:56] LABS: CORONAVIRUS COVID-19 NAA NEGATIVE (NEGATIVE); INFLUENZA A NAA NEGATIVE (NEGATIVE); INFLUENZA B NAA NEGATIVE (NEGATIVE)
[2020-09-13] MEDS ORDERED: Glucagon,Human Recombinant 1 MG Vial IM PRN (00:44)
[2020-09-13] MEDS ORDERED: 50% Dextrose in Water 50 ML Syringe IVPUSH PRN (00:44)
[2020-09-13] MEDS ORDERED: Baclofen 10 MG Tab PO ONE (00:46)
--- NOTE | 2020-09-13 00:52 | PCM.HP.2 ---
H&P History of Present Illness - General Date of Service: 09/13/20 Admit Problem/Dx: Admission Diagnosis/Problem Admission Diagnosis/Problem Chest pain - History of Present Illness Initial Comments - Free Text/Narative: 75 yo female with pmh of diabetes, hypertension, and hypothyrodism who presents with one day histoyr of muscle spasms of her back, neck, feet and chest. Patient reports shaking so hard she was unable to grab on to anything. She denies any fevers but did reports sweets and feeling cold. She denies any shortness of breath but does report cough. back/neck/jaw Pain Score (Numeric/FACES): 8 - Related Data Allergies/Adverse Reactions: Allergies Allergy/AdvReac Type Severity Reaction Status Date / Time cyclobenzaprine Allergy Other Verified 09/12/20 17:58 [From Flexeril] ketorolac Allergy Other Verified 09/12/20 17:58 meperidine [From Demerol] Allergy Change Verified 09/12/20 17:58 Mental Status nabumetone [From Relafen] Allergy nightmares Verified 09/12/20 23:18 Home Medications: Home Meds Liraglutide [Victoza] 1.2 mg SUBCUT QAM 09/27/14 [History] PARoxetine [Paxil] 20 mg PO DAILY 09/27/14 [History] Simvastatin [Zocor] 10 mg PO BEDTIME 09/27/14 [History] metFORMIN [Glucophage XR] 500 mg PO WITHMEALSANDBED 09/27/14 [History] ramipriL [Altace] 20 mg PO DAILY 09/27/14 [History] Insulin Degludec [Tresiba Flextouch U-100] 58 unit SQ BEDTIME 12/24/16 [History] Insulin Lispro [Humalog Kwikpen U-100] 1 injection SQ ASDIRECTED 12/24/16 [History] Metoprolol Succinate [Toprol XL] 100 mg PO QAM 12/24/16 [History] Pregabalin [Lyrica] 100 mg PO WITHMEALSANDBED 12/24/16 [History] Ibuprofen [Advil] 2 tab PO BID 06/26/17 [History] Multivitamin [Multivitamins] 1 tab PO DAILY 06/26/17 [History] amLODIPine Besylate [Amlodipine Besylate] 5 mg PO BEDTIME 06/26/17 [History] Cholecalciferol (Vitamin D3) [Vitamin D3] 400 unit PO DAILY 10/29/17 [History] Levothyroxine 25 mcg PO QAM 10/29/17 [History] Cinnamon Bark [Cinnamon] 1 mg PO DAILY 09/12/20 [History] Fish Oil/Borage/Flax/Om3,6,9 1 [[place] 3-6-9 Complex Softgel] 400 mg PO DAILY 09/12/20 [History] Past Medical History HEENT History: Reports: None, Other (See Below) Other HEENT History: uses reading glasses Cardiovascular History: Reports: High Cholesterol, Hypertension Respiratory History: Reports: None Gastrointestinal History: Reports: None Genitourinary History: Reports: None Other Genitourinary History: recent UTI [employer] History: Reports: Musculoskeletal History: Reports: Arthritis, Fracture, Osteoporosis Other Musculoskeletal History: hx of fx wrist and foot x2 Neurological History: Reports: None Psychiatric History: Reports: Depression, Other (See Below) Other Psychiatric History: very Claustrophobic Endocrine/Metabolic History: Reports: Diabetes, Type II, Hypothyroidism, IDDM, Obesity/BMI 30+ Hematologic History: Reports: Anemia Immunologic History: Reports: None Oncologic (Cancer) History: Reports: None Dermatologic History: Reports: None - Infectious Disease History Infectious Disease History: Reports: Chicken Pox, Measles, Mumps - Past Surgical History Head Surgeries/Procedures: Reports: None HEENT Surgical History: Reports: LASIK, Tonsillectomy Cardiovascular Surgical History: Reports: None Respiratory Surgical History: Reports: None GI Surgical History: Reports: Appendectomy Female Surgical History: Reports: Breast Biopsy, Hysterectomy, Salpingo- Oophorectomy Neurological Surgical History: Reports: C-Spine, Laminectomy, Spinal Fusion Other Neurological Surgeries/Procedures: hardware in back and neck Musculoskeletal Surgical History: Reports: Carpal Tunnel, Shoulder Replacement, Other (See Below) Other Musculoskeletal Surgeries/Procedures:: bilateral TSA, tendon repair in foot Social & Family History - Family History Family Medical History: No Pertinent Family History HEENT: Reports: Cataract, Glaucoma Cardiac: Reports: High Cholesterol, Hypertension, Pacemaker Respiratory: Reports: COPD GI: Reports: None : Reports: None OBGYN: Reports: None Musculoskeletal: Reports: Arthritis, Osteoporosis Neurological: Reports: None Psychiatric: Reports: None Endocrine/Metabolic: Reports: Diabetes, type II Hematologic: Reports: Anemia Immunologic: Reports: None Dermatologic: Reports: None Oncologic: Reports: Breast, Other (See Below) Other Oncologic Family History: throat - Tobacco Use Tobacco Use Status *Q: Never Tobacco User Second Hand Smoke Exposure: No - Caffeine Use Caffeine Use: Reports: Soda, Tea - Recreational Drug Use Recreational Drug Use: No H&P Review of Systems - Review of Systems: Review Of Systems: Comprehensive ROS is negative, except as noted in HPI. Exam - Exam Exam: See Below - Vital Signs Vital Signs: Last Vital Signs Temp 36.7 C 09/12/20 23:22 Pulse 104 H 09/12/20 23:22 Resp 17 09/12/20 23:22 BP 119/58 L 09/12/20 23:22 Pulse Ox 93 L 09/12/20 23:22 Weight: 88.025 kg - Exam General: Alert, Oriented HEENT: Mucosa Moist & [place] Neck: Supple Lungs: Clear to Auscultation, Normal Respiratory Effort Cardiovascular: Regular Rate, Regular Rhythm GI/Abdominal Exam: Normal Bowel Sounds, Soft, Non-Tender Extremities: Non-Tender, No Pedal Edema Skin: Warm, Dry, Intact Neurological: Cranial Nerves Intact, Strength Equal Bilateral, Normal Tone. No: Focal Deficit, Hyperreflexia, Hyporeflexia, Clonus - Patient Data Lab Results Last 24 hrs: Laboratory Results - last 24 hr 09/12/20 09/12/20 09/12/20 Range/Units 17:52 17:52 17:52 WBC 5.04 (4.0-11.0) K/uL RBC 4.25 L (4.30-5.90) M/uL Hgb 12.5 (12.0-16.0) g/dL Hct 38.3 (36.0-46.0) % MCV 90.1 (80.0-98.0) fL MCH 29.4 (27.0-32.0) pg MCHC 32.6 (31.0-37.0) g/dL RDW Std Deviation 48.6 (28.0-62.0) fl RDW Coeff of Kaylin 15 (11.0-15.0) % Plt Count 215 (150-400) K/uL MPV 9.80 (7.40-12.00) fL Add Manual Diff YES Neutrophils % (Manual) 43 L (48.0-80.0) % Band Neutrophils % 36 % Lymphocytes % (Manual) 16 (16.0-40.0) % Monocytes % (Manual) 1 (0.0-15.0) % Metamyelocytes % 1 % Myelocytes % 3 % Nucleated RBC % 0.0 /100WBC Absolute Seg Neuts 2.2 (1.4-5.7) Band Neutrophils # 1.8 Lymphocytes # (Manual) 0.8 (0.6-2.4) Monocytes # (Manual) 0.1 (0.0-0.8) Absolute Metamyelocyte 0.1 Absolute Myelocytes 0.2 Nucleated RBCs # 0 K/uL INR 1.13 ABG pH (7.35-7.45) ABG pCO2 (35-45) mmHG ABG pO2 (80-105) mmHG ABG HCO3 (22-26) mEq/L ABG Total CO2 (23-27) mmol/L ABG Base Excess (-2.0-3.0) Sodium 141 (136-145) mmol/L Potassium 4.1 (3.5-5.1) mmol/L Chloride 101 (98-107) mmol/L Carbon Dioxide 30.6 (21.0-32.0) mmol/L BUN 19 H (7.0-18.0) mg/dL Creatinine 0.8 (0.6-1.0) mg/dL Est Cr Clr Drug Dosing 53.28 mL/min Estimated GFR (MDRD) > 60.0 ml/min Glucose 115 H (74-106) mg/dL Calcium 9.0 (8.5-10.1) mg/dL Total Bilirubin 0.5 (0.2-1.0) mg/dL AST 22 (15-37) IU/L ALT 28 (14-63) IU/L Alkaline Phosphatase 75 (46-116) U/L Creatine Kinase 83 (26-308) U/L Troponin I < 0.050 (0.000-0.056) ng/mL B-Natriuretic Peptide (<100) PG/ML Total Protein 7.6 (6.4-8.2) g/dL Albumin 3.7 (3.4-5.0) g/dL Globulin 3.9 (2.6-4.0) g/dL Albumin/Globulin Ratio 0.9 (0.9-1.6) Influenza Type A RNA (NEGATIVE) Influenza Type B RNA (NEGATIVE) SARS-CoV-2 RNA (NIEVES) (NEGATIVE) 09/12/20 09/12/20 09/12/20 Range/Units 17:52 21:00 21:46 WBC (4.0-11.0) K/uL RBC (4.30-5.90) M/uL Hgb (12.0-16.0) g/dL Hct (36.0-46.0) % MCV (80.0-98.0) fL MCH (27.0-32.0) pg MCHC (31.0-37.0) g/dL RDW Std Deviation (28.0-62.0) fl RDW Coeff of Kaylin (11.0-15.0) % Plt Count (150-400) K/uL MPV (7.40-12.00) fL Add Manual Diff Neutrophils % (Manual) (48.0-80.0) % Band Neutrophils % % Lymphocytes % (Manual) (16.0-40.0) % Monocytes % (Manual) (0.0-15.0) % Metamyelocytes % % Myelocytes % % Nucleated RBC % /100WBC Absolute Seg Neuts (1.4-5.7) Band Neutrophils # Lymphocytes # (Manual) (0.6-2.4) Monocytes # (Manual) (0.0-0.8) Absolute Metamyelocyte Absolute Myelocytes Nucleated RBCs # K/uL INR ABG pH 7.45 (7.35-7.45) ABG pCO2 38 (35-45) mmHG ABG pO2 69 L (80-105) mmHG ABG HCO3 27 H (22-26) mEq/L ABG Total CO2 24.2 (23-27) mmol/L ABG Base Excess 2.5 (-2.0-3.0) Sodium (136-145) mmol/L Potassium (3.5-5.1) mmol/L Chloride (98-107) mmol/L Carbon Dioxide (21.0-32.0) mmol/L BUN (7.0-18.0) mg/dL Creatinine (0.6-1.0) mg/dL Est Cr Clr Drug Dosing mL/min Estimated GFR (MDRD) ml/min Glucose (74-106) mg/dL Calcium (8.5-10.1) mg/dL Total Bilirubin (0.2-1.0) mg/dL AST (15-37) IU/L ALT (14-63) IU/L Alkaline Phosphatase (46-116) U/L Creatine Kinase (26-308) U/L Troponin I < 0.050 (0.000-0.056) ng/mL B-Natriuretic Peptide 12 (<100) PG/ML Total Protein (6.4-8.2) g/dL Albumin (3.4-5.0) g/dL Globulin (2.6-4.0) g/dL Albumin/Globulin Ratio (0.9-1.6) Influenza Type A RNA (NEGATIVE) Influenza Type B RNA (NEGATIVE) SARS-CoV-2 RNA (NIEVES) (NEGATIVE) 09/12/20 Range/Units 22:06 WBC (4.0-11.0) K/uL RBC (4.30-5.90) M/uL Hgb (12.0-16.0) g/dL Hct (36.0-46.0) % MCV (80.0-98.0) fL MCH (27.0-32.0) pg MCHC (31.0-37.0) g/dL RDW Std Deviation (28.0-62.0) fl RDW Coeff of Kaylin (11.0-15.0) % Plt Count (150-400) K/uL MPV (7.40-12.00) fL Add Manual Diff Neutrophils % (Manual) (48.0-80.0) % Band Neutrophils % % Lymphocytes % (Manual) (16.0-40.0) % Monocytes % (Manual) (0.0-15.0) % Metamyelocytes % % Myelocytes % % Nucleated RBC % /100WBC Absolute Seg Neuts (1.4-5.7) Band Neutrophils # Lymphocytes # (Manual) (0.6-2.4) Monocytes # (Manual) (0.0-0.8) Absolute Metamyelocyte Absolute Myelocytes Nucleated RBCs # K/uL INR ABG pH (7.35-7.45) ABG pCO2 (35-45) mmHG ABG pO2 (80-105) mmHG ABG HCO3 (22-26) mEq/L ABG Total CO2 (23-27) mmol/L ABG Base Excess (-2.0-3.0) Sodium (136-145) mmol/L Potassium (3.5-5.1) mmol/L Chloride (98-107) mmol/L Carbon Dioxide (21.0-32.0) mmol/L BUN (7.0-18.0) mg/dL Creatinine (0.6-1.0) mg/dL Est Cr Clr Drug Dosing mL/min Estimated GFR (MDRD) ml/min Glucose (74-106) mg/dL Calcium (8.5-10.1) mg/dL Total Bilirubin (0.2-1.0) mg/dL AST (15-37) IU/L ALT (14-63) IU/L Alkaline Phosphatase (46-116) U/L Creatine Kinase (26-308) U/L Troponin I (0.000-0.056) ng/mL B-Natriuretic Peptide (<100) PG/ML Total Protein (6.4-8.2) g/dL Albumin (3.4-5.0) g/dL Globulin (2.6-4.0) g/dL Albumin/Globulin Ratio (0.9-1.6) Influenza Type A RNA NEGATIVE (NEGATIVE) Influenza Type B RNA NEGATIVE (NEGATIVE) SARS-CoV-2 RNA (NIEVES) NEGATIVE (NEGATIVE) Result Diagrams: 09/12/20 17:52 09/12/20 17:52 Sepsis Event Note - Evaluation Sepsis Screening Result: No Definite Risk - Focused Exam Vital Signs: Vital Signs Temp Pulse Resp BP Pulse Ox 09/12/20 23:22 36.7 C 104 H 17 119/58 L 93 L 09/12/20 22:15 37.4 C 09/12/20 22:10 91 16 155/93 H 94 L 09/12/20 19:18 95 09/12/20 19:10 98 20 160/75 H 96 09/12/20 17:54 36.4 C 97 143/78 H 90 L Problem List Initiated/Reviewed/Updated: Yes Orders Last 24hrs: Active Orders 24 hr Category Date Time Status Patient Status [ADT] Routine ADT 09/12/20 22:05 Active Antiembolic Devices [RC] PER UNIT ROUTINE Care 09/13/20 00:46 Ordered Blood Glucose Check, Bedside [RC] TIDAC Care 09/13/20 00:44 Ordered Cardiac Monitoring [RC] . DIRECTED Care 09/12/20 18:08 Active Incentive Spirometry [RT Incentive Spirometry] [RC] Care 09/12/20 23:45 Active Q1HWA Oxygen Therapy [RC] PRN Care 09/13/20 00:45 Ordered Pulse Oximetry [RC] ASDIRECTED Care 09/12/20 18:08 Active Up ad Nata [RC] ASDIRECTED Care 09/13/20 00:45 Ordered VTE/DVT Education [RC] PER UNIT ROUTINE Care 09/13/20 00:45 Ordered Vital Signs [RC] Q4H Care 09/13/20 00:45 Ordered [employer] Diet [DIET] Diet 09/13/20 Breakfast Ordered BASIC METABOLIC PANEL,BMP [CHEM] AM Lab 09/13/20 05:11 Ordered CBC WITH AUTO DIFF [HEME] AM Lab 09/13/20 05:11 Ordered CPK [CREATINE KINASE,CK] [CHEM] Routine Lab 09/13/20 00:41 Ordered MAGNESIUM [CHEM] Routine Lab 09/13/20 00:40 Ordered TROPONIN I [CHEM] Q6H Lab 09/13/20 03:00 Ordered TROPONIN I [CHEM] Q6H Lab 09/13/20 09:00 Ordered TSH [CHEM] AM Lab 09/13/20 05:11 Ordered Baclofen [Lioresal] Med 09/13/20 00:46 Once 5 mg PO ONETIME ONE Dextrose 50% in Water Med 09/13/20 00:44 Ordered 50 ml IVPUSH ASDIRECTED PRN Glucagon,Human Recombinant [GlucaGen] Med 09/13/20 00:44 Ordered 1 mg IM ASDIRECTED PRN Insulin Aspart [NovoLOG] Med 09/13/20 07:30 Ordered See Protocol SUBCUT TIDAC Insulin Degludec [Tresiba Flextouch U-100] Med 09/13/20 00:41 Ordered 58 unit SQ BEDTIME Levothyroxine Med 09/13/20 09:00 Ordered 25 mcg PO QAM Metoprolol Succinate [Toprol XL] Med 09/13/20 09:00 Ordered 100 mg PO QAM PARoxetine [Paxil] Med 09/13/20 09:00 Ordered 20 mg PO DAILY Simvastatin [Zocor] Med 09/13/20 21:00 Ordered 10 mg PO BEDTIME amLODIPine [Norvasc] Med 09/13/20 21:00 Ordered 5 mg PO BEDTIME metFORMIN [Glucophage XR] Med 09/13/20 08:00 Ordered 500 mg PO WITHMEALSANDBED ramipriL [Altace] Med 09/13/20 09:00 Ordered 20 mg PO DAILY Sequential Compression Device [OM.PC] Per Unit Routine Oth 09/13/20 00:45 Ordered Resuscitation Status Routine Resus Stat 09/13/20 00:45 Ordered Medication Orders Amlodipine Besylate (Amlodipine 5 Mg Tab) 5 mg PO BEDTIME RODERICK Baclofen (Baclofen 10 Mg Tab) 5 mg PO ONETIME ONE Stop: 09/13/20 00:47 Dextrose/Water (50% Dextrose In Water 50 Ml Syringe) 50 ml IVPUSH ASDIRECTED PRN PRN Reason: Hypoglycemia Glucagon (Glucagon,Human Recombinant 1 Mg Vial) 1 mg IM ASDIRECTED PRN PRN Reason: Hypoglycemia Insulin Aspart (Insulin Aspart 100 Units/Ml 3 Ml Pen) 0 unit SUBCUT TIDAC RODERICK; Protocol Levothyroxine Sodium (Levothyroxine 25 Mcg Tab) 25 mcg PO QAM RODERICK Metformin HCl (Metformin 500 Mg Tab.Er) 500 mg PO WITHMEALSANDBED RODERICK Metoprolol Succinate (Metoprolol Succinate 100 Mg Tab.Er) 100 mg PO QAM RODERICK Non-Formulary Medication (Insulin Degludec [Tresiba Flextouch U-100]) 58 unit SQ BEDTIME RODERICK Paroxetine HCl (Paroxetine 20 Mg Tab) 20 mg PO DAILY RODERICK Ramipril (Ramipril 10 Mg Cap) 20 mg PO DAILY RODERICK Simvastatin (Simvastatin 10 Mg Tab) 10 mg PO BEDTIME [facility] Assessment/Plan Comment:: 75 yo female admitted for muscle spasms, possible rigors. We will treat for pneumonia considering cough and mild CT scan findings.
[2020-09-13] MEDS ORDERED: Levofloxacin/Dextrose 5%-Water 750 MG in Premix Bag 1 BAG IV SCH (01:00)
[2020-09-13 03:36] LABS: CARBON DIOXIDE,CO2 26.8 mmol/L (21.0-32.0); POTASSIUM,K 4.7 mmol/L (3.5-5.1)
[2020-09-13] MEDS ORDERED: Insulin Glargine,Human Rec. Analog 100 Units/ML 3 ML Pen SUBCUT ONE (04:03)
[2020-09-13] MEDS ORDERED: Magnesium Sulfate/Water 2 GM in Premix Bag 1 BAG IV STA (04:05)
[2020-09-13] MEDS ORDERED: Sodium Chloride 0.9% 1,000 ML IV ONE (04:59)
[2020-09-13] MEDS: Sodium Chloride 0.9% 1,000 ML IV SCH ×3 (06:20→21:28)
[2020-09-13] MEDS: Insulin Aspart 100 Units/ML 3 ML Pen SUBCUT SCH ×3 (07:33→17:10)
[2020-09-13] MEDS: Metoprolol Succinate 100 MG Tab.ER PO SCH (08:07)
[2020-09-13] MEDS: PARoxetine 20 MG Tab PO SCH (08:08)
[2020-09-13] MEDS: Levothyroxine 25 MCG Tab PO SCH (08:09)
[2020-09-13] MEDS: Pregabalin 50 MG Cap PO SCH ×4 (08:12→21:20)
[2020-09-13] MEDS: metFORMIN 500 MG Tab.ER PO SCH ×4 (08:47→21:18)
--- NOTE | 2020-09-13 13:41 | PCM.PN ---
- General Info Date of Service: 09/13/20 - Review of Systems Systems Review Comment:: patient feeling better, spasms improved but not completely resolved, is wanting to go home but after discussing unclear diagnosis and elevated white count patient is willing to stay. - Patient Data Vitals - Most Recent: Last Vital Signs Temp 36.7 C 09/13/20 08:00 Pulse 101 H 09/13/20 08:07 Resp 18 09/13/20 08:00 BP 143/67 H 09/13/20 08:40 Pulse Ox 97 09/13/20 08:00 Weight - Most Recent: 194.1 kg I&O - Last 24 Hours: Intake & Output 09/12/20 09/13/20 09/13/20 22:59 06:59 14:59 Intake Total 270 Output Total 200 Balance 70 Lab Results Last 24 Hours: Laboratory Results - last 24 hr 09/12/20 09/12/20 09/12/20 Range/Units 17:52 17:52 17:52 WBC 5.04 (4.0-11.0) K/uL RBC 4.25 L (4.30-5.90) M/uL Hgb 12.5 (12.0-16.0) g/dL Hct 38.3 (36.0-46.0) % MCV 90.1 (80.0-98.0) fL MCH 29.4 (27.0-32.0) pg MCHC 32.6 (31.0-37.0) g/dL RDW Std Deviation 48.6 (28.0-62.0) fl RDW Coeff of Kaylin 15 (11.0-15.0) % Plt Count 215 (150-400) K/uL MPV 9.80 (7.40-12.00) fL Neut % (Auto) (48.0-80.0) % Lymph % (Auto) (16.0-40.0) % [place] % (Auto) (0.0-15.0) % Eos % (Auto) (0.0-7.0) % Baso % (Auto) (0.0-1.5) % Neut # (Auto) (1.4-5.7) K/uL Lymph # (Auto) (0.6-2.4) K/uL [place] # (Auto) (0.0-0.8) K/uL Eos # (Auto) (0.0-0.7) K/uL Baso # (Auto) (0.0-0.1) K/uL Add Manual Diff YES Neutrophils % (Manual) 43 L (48.0-80.0) % Band Neutrophils % 36 % Lymphocytes % (Manual) 16 (16.0-40.0) % Monocytes % (Manual) 1 (0.0-15.0) % Metamyelocytes % 1 % Myelocytes % 3 % Nucleated RBC % 0.0 /100WBC Absolute Seg Neuts 2.2 (1.4-5.7) Band Neutrophils # 1.8 Lymphocytes # (Manual) 0.8 (0.6-2.4) Monocytes # (Manual) 0.1 (0.0-0.8) Absolute Metamyelocyte 0.1 Absolute Myelocytes 0.2 Nucleated RBCs # 0 K/uL INR 1.13 ABG pH (7.35-7.45) ABG pCO2 (35-45) mmHG ABG pO2 (80-105) mmHG ABG HCO3 (22-26) mEq/L ABG Total CO2 (23-27) mmol/L ABG Base Excess (-2.0-3.0) Sodium 141 (136-145) mmol/L Potassium 4.1 (3.5-5.1) mmol/L Chloride 101 (98-107) mmol/L Carbon Dioxide 30.6 (21.0-32.0) mmol/L BUN 19 H (7.0-18.0) mg/dL Creatinine 0.8 (0.6-1.0) mg/dL Est Cr Clr Drug Dosing 53.28 mL/min Estimated GFR (MDRD) > 60.0 ml/min Glucose 115 H (74-106) mg/dL POC Glucose (70-99) mg/dL Lactic Acid (0.4-2.0) mmol/L Calcium 9.0 (8.5-10.1) mg/dL Magnesium (1.8-2.4) mg/dL Total Bilirubin 0.5 (0.2-1.0) mg/dL AST 22 (15-37) IU/L ALT 28 (14-63) IU/L Alkaline Phosphatase 75 (46-116) U/L Creatine Kinase 83 (26-308) U/L Troponin I < 0.050 (0.000-0.056) ng/mL B-Natriuretic Peptide (<100) PG/ML Total Protein 7.6 (6.4-8.2) g/dL Albumin 3.7 (3.4-5.0) g/dL Globulin 3.9 (2.6-4.0) g/dL Albumin/Globulin Ratio 0.9 (0.9-1.6) TSH 3rd Generation (0.36-3.74) uIU/mL Urine Color Urine Appearance Urine pH (5.0-8.0) Ur Specific [place] (1.001-1.035) Urine Protein (NEGATIVE) mg/dL Urine Glucose (UA) (NEGATIVE) mg/dL Urine Ketones (NEGATIVE) mg/dL Urine Occult Blood (NEGATIVE) Urine Nitrite (NEGATIVE) Urine Bilirubin (NEGATIVE) Urine Urobilinogen (<2.0) EU/dL Ur Leukocyte Esterase (NEGATIVE) Urine RBC (0-2/HPF) Urine WBC (0-5/HPF) Ur Epithelial Cells (NONE-FEW) Urine Bacteria (NEGATIVE) Influenza Type A RNA (NEGATIVE) Influenza Type B RNA (NEGATIVE) SARS-CoV-2 RNA (NIEVES) (NEGATIVE) 09/12/20 09/12/20 09/12/20 Range/Units 17:52 21:00 21:00 WBC (4.0-11.0) K/uL RBC (4.30-5.90) M/uL Hgb (12.0-16.0) g/dL Hct (36.0-46.0) % MCV (80.0-98.0) fL MCH (27.0-32.0) pg MCHC (31.0-37.0) g/dL RDW Std Deviation (28.0-62.0) fl RDW Coeff of Kaylin (11.0-15.0) % Plt Count (150-400) K/uL MPV (7.40-12.00) fL Neut % (Auto) (48.0-80.0) % Lymph % (Auto) (16.0-40.0) % [place] % (Auto) (0.0-15.0) % Eos % (Auto) (0.0-7.0) % Baso % (Auto) (0.0-1.5) % Neut # (Auto) (1.4-5.7) K/uL Lymph # (Auto) (0.6-2.4) K/uL [place] # (Auto) (0.0-0.8) K/uL Eos # (Auto) (0.0-0.7) K/uL Baso # (Auto) (0.0-0.1) K/uL Add Manual Diff Neutrophils % (Manual) (48.0-80.0) % Band Neutrophils % % Lymphocytes % (Manual) (16.0-40.0) % Monocytes % (Manual) (0.0-15.0) % Metamyelocytes % % Myelocytes % % Nucleated RBC % /100WBC Absolute Seg Neuts (1.4-5.7) Band Neutrophils # Lymphocytes # (Manual) (0.6-2.4) Monocytes # (Manual) (0.0-0.8) Absolute Metamyelocyte Absolute Myelocytes Nucleated RBCs # K/uL INR ABG pH (7.35-7.45) ABG pCO2 (35-45) mmHG ABG pO2 (80-105) mmHG ABG HCO3 (22-26) mEq/L ABG Total CO2 (23-27) mmol/L ABG Base Excess (-2.0-3.0) Sodium (136-145) mmol/L Potassium (3.5-5.1) mmol/L Chloride (98-107) mmol/L Carbon Dioxide (21.0-32.0) mmol/L BUN (7.0-18.0) mg/dL Creatinine (0.6-1.0) mg/dL Est Cr Clr Drug Dosing mL/min Estimated GFR (MDRD) ml/min Glucose (74-106) mg/dL POC Glucose (70-99) mg/dL Lactic Acid (0.4-2.0) mmol/L Calcium (8.5-10.1) mg/dL Magnesium 1.5 L (1.8-2.4) mg/dL Total Bilirubin (0.2-1.0) mg/dL AST (15-37) IU/L ALT (14-63) IU/L Alkaline Phosphatase (46-116) U/L Creatine Kinase 72 (26-308) U/L Troponin I < 0.050 (0.000-0.056) ng/mL B-Natriuretic Peptide 12 (<100) PG/ML Total Protein (6.4-8.2) g/dL Albumin (3.4-5.0) g/dL Globulin (2.6-4.0) g/dL Albumin/Globulin Ratio (0.9-1.6) TSH 3rd Generation (0.36-3.74) uIU/mL Urine Color Urine Appearance Urine pH (5.0-8.0) Ur Specific [place] (1.001-1.035) Urine Protein (NEGATIVE) mg/dL Urine Glucose (UA) (NEGATIVE) mg/dL Urine Ketones (NEGATIVE) mg/dL Urine Occult Blood (NEGATIVE) Urine Nitrite (NEGATIVE) Urine Bilirubin (NEGATIVE) Urine Urobilinogen (<2.0) EU/dL Ur Leukocyte Esterase (NEGATIVE) Urine RBC (0-2/HPF) Urine WBC (0-5/HPF) Ur Epithelial Cells (NONE-FEW) Urine Bacteria (NEGATIVE) Influenza Type A RNA (NEGATIVE) Influenza Type B RNA (NEGATIVE) SARS-CoV-2 RNA (NIEVES) (NEGATIVE) 09/12/20 09/12/20 09/13/20 Range/Units 21:46 22:06 03:04 WBC (4.0-11.0) K/uL RBC (4.30-5.90) M/uL Hgb (12.0-16.0) g/dL Hct (36.0-46.0) % MCV (80.0-98.0) fL MCH (27.0-32.0) pg MCHC (31.0-37.0) g/dL RDW Std Deviation (28.0-62.0) fl RDW Coeff of Kaylin (11.0-15.0) % Plt Count (150-400) K/uL MPV (7.40-12.00) fL Neut % (Auto) (48.0-80.0) % Lymph % (Auto) (16.0-40.0) % [place] % (Auto) (0.0-15.0) % Eos % (Auto) (0.0-7.0) % Baso % (Auto) (0.0-1.5) % Neut # (Auto) (1.4-5.7) K/uL Lymph # (Auto) (0.6-2.4) K/uL [place] # (Auto) (0.0-0.8) K/uL Eos # (Auto) (0.0-0.7) K/uL Baso # (Auto) (0.0-0.1) K/uL Add Manual Diff Neutrophils % (Manual) (48.0-80.0) % Band Neutrophils % % Lymphocytes % (Manual) (16.0-40.0) % Monocytes % (Manual) (0.0-15.0) % Metamyelocytes % % Myelocytes % % Nucleated RBC % /100WBC Absolute Seg Neuts (1.4-5.7) Band Neutrophils # Lymphocytes # (Manual) (0.6-2.4) Monocytes # (Manual) (0.0-0.8) Absolute Metamyelocyte Absolute Myelocytes Nucleated RBCs # K/uL INR ABG pH 7.45 (7.35-7.45) ABG pCO2 38 (35-45) mmHG ABG pO2 69 L (80-105) mmHG ABG HCO3 27 H (22-26) mEq/L ABG Total CO2 24.2 (23-27) mmol/L ABG Base Excess 2.5 (-2.0-3.0) Sodium (136-145) mmol/L Potassium (3.5-5.1) mmol/L Chloride (98-107) mmol/L Carbon Dioxide (21.0-32.0) mmol/L BUN (7.0-18.0) mg/dL Creatinine (0.6-1.0) mg/dL Est Cr Clr Drug Dosing mL/min Estimated GFR (MDRD) ml/min Glucose (74-106) mg/dL POC Glucose (70-99) mg/dL Lactic Acid (0.4-2.0) mmol/L Calcium (8.5-10.1) mg/dL Magnesium (1.8-2.4) mg/dL Total Bilirubin (0.2-1.0) mg/dL AST (15-37) IU/L ALT (14-63) IU/L Alkaline Phosphatase (46-116) U/L Creatine Kinase (26-308) U/L Troponin I < 0.050 (0.000-0.056) ng/mL B-Natriuretic Peptide (<100) PG/ML Total Protein (6.4-8.2) g/dL Albumin (3.4-5.0) g/dL Globulin (2.6-4.0) g/dL Albumin/Globulin Ratio (0.9-1.6) TSH 3rd Generation (0.36-3.74) uIU/mL Urine Color Urine Appearance Urine pH (5.0-8.0) Ur Specific [place] (1.001-1.035) Urine Protein (NEGATIVE) mg/dL Urine Glucose (UA) (NEGATIVE) mg/dL Urine Ketones (NEGATIVE) mg/dL Urine Occult Blood (NEGATIVE) Urine Nitrite (NEGATIVE) Urine Bilirubin (NEGATIVE) Urine Urobilinogen (<2.0) EU/dL Ur Leukocyte Esterase (NEGATIVE) Urine RBC (0-2/HPF) Urine WBC (0-5/HPF) Ur Epithelial Cells (NONE-FEW) Urine Bacteria (NEGATIVE) Influenza Type A RNA NEGATIVE (NEGATIVE) Influenza Type B RNA NEGATIVE (NEGATIVE) SARS-CoV-2 RNA (NIEVES) NEGATIVE (NEGATIVE) 09/13/20 09/13/20 09/13/20 Range/Units 03:04 03:04 04:14 WBC 18.57 H (4.0-11.0) K/uL RBC 4.08 L (4.30-5.90) M/uL Hgb 11.9 L (12.0-16.0) g/dL Hct 36.3 (36.0-46.0) % MCV 89.0 (80.0-98.0) fL MCH 29.2 (27.0-32.0) pg MCHC 32.8 (31.0-37.0) g/dL RDW Std Deviation 48.9 (28.0-62.0) fl RDW Coeff of Kaylin 15 (11.0-15.0) % Plt Count 217 (150-400) K/uL MPV 9.90 (7.40-12.00) fL Neut % (Auto) 89.2 H (48.0-80.0) % Lymph % (Auto) 3.4 L (16.0-40.0) % [place] % (Auto) 7.1 (0.0-15.0) % Eos % (Auto) 0.1 (0.0-7.0) % Baso % (Auto) 0.2 (0.0-1.5) % Neut # (Auto) 16.6 H (1.4-5.7) K/uL Lymph # (Auto) 0.6 (0.6-2.4) K/uL [place] # (Auto) 1.3 H (0.0-0.8) K/uL Eos # (Auto) 0.0 (0.0-0.7) K/uL Baso # (Auto) 0.0 (0.0-0.1) K/uL Add Manual Diff Neutrophils % (Manual) (48.0-80.0) % Band Neutrophils % % Lymphocytes % (Manual) (16.0-40.0) % Monocytes % (Manual) (0.0-15.0) % Metamyelocytes % % Myelocytes % % Nucleated RBC % 0.1 /100WBC Absolute Seg Neuts (1.4-5.7) Band Neutrophils # Lymphocytes # (Manual) (0.6-2.4) Monocytes # (Manual) (0.0-0.8) Absolute Metamyelocyte Absolute Myelocytes Nucleated RBCs # 0 K/uL INR ABG pH (7.35-7.45) ABG pCO2 (35-45) mmHG ABG pO2 (80-105) mmHG ABG HCO3 (22-26) mEq/L ABG Total CO2 (23-27) mmol/L ABG Base Excess (-2.0-3.0) Sodium 137 (136-145) mmol/L Potassium 4.7 (3.5-5.1) mmol/L Chloride 100 (98-107) mmol/L Carbon Dioxide 26.8 (21.0-32.0) mmol/L BUN 22 H (7.0-18.0) mg/dL Creatinine 1.0 (0.6-1.0) mg/dL Est Cr Clr Drug Dosing 42.62 mL/min Estimated GFR (MDRD) 54.2 ml/min Glucose 230 H (74-106) mg/dL POC Glucose (70-99) mg/dL Lactic Acid 3.4 H* (0.4-2.0) mmol/L Calcium 8.8 (8.5-10.1) mg/dL Magnesium (1.8-2.4) mg/dL Total Bilirubin (0.2-1.0) mg/dL AST (15-37) IU/L ALT (14-63) IU/L Alkaline Phosphatase (46-116) U/L Creatine Kinase (26-308) U/L Troponin I (0.000-0.056) ng/mL B-Natriuretic Peptide (<100) PG/ML Total Protein (6.4-8.2) g/dL Albumin (3.4-5.0) g/dL Globulin (2.6-4.0) g/dL Albumin/Globulin Ratio (0.9-1.6) TSH 3rd Generation 2.24 (0.36-3.74) uIU/mL Urine Color Urine Appearance Urine pH (5.0-8.0) Ur Specific [place] (1.001-1.035) Urine Protein (NEGATIVE) mg/dL Urine Glucose (UA) (NEGATIVE) mg/dL Urine Ketones (NEGATIVE) mg/dL Urine Occult Blood (NEGATIVE) Urine Nitrite (NEGATIVE) Urine Bilirubin (NEGATIVE) Urine Urobilinogen (<2.0) EU/dL Ur Leukocyte Esterase (NEGATIVE) Urine RBC (0-2/HPF) Urine WBC (0-5/HPF) Ur Epithelial Cells (NONE-FEW) Urine Bacteria (NEGATIVE) Influenza Type A RNA (NEGATIVE) Influenza Type B RNA (NEGATIVE) SARS-CoV-2 RNA (NIEVES) (NEGATIVE) 09/13/20 09/13/20 09/13/20 Range/Units 06:51 09:13 09:13 WBC (4.0-11.0) K/uL RBC (4.30-5.90) M/uL Hgb (12.0-16.0) g/dL Hct (36.0-46.0) % MCV (80.0-98.0) fL MCH (27.0-32.0) pg MCHC (31.0-37.0) g/dL RDW Std Deviation (28.0-62.0) fl RDW Coeff of Kaylin (11.0-15.0) % Plt Count (150-400) K/uL MPV (7.40-12.00) fL Neut % (Auto) (48.0-80.0) % Lymph % (Auto) (16.0-40.0) % [place] % (Auto) (0.0-15.0) % Eos % (Auto) (0.0-7.0) % Baso % (Auto) (0.0-1.5) % Neut # (Auto) (1.4-5.7) K/uL Lymph # (Auto) (0.6-2.4) K/uL [place] # (Auto) (0.0-0.8) K/uL Eos # (Auto) (0.0-0.7) K/uL Baso # (Auto) (0.0-0.1) K/uL Add Manual Diff Neutrophils % (Manual) (48.0-80.0) % Band Neutrophils % % Lymphocytes % (Manual) (16.0-40.0) % Monocytes % (Manual) (0.0-15.0) % Metamyelocytes % % Myelocytes % % Nucleated RBC % /100WBC Absolute Seg Neuts (1.4-5.7) Band Neutrophils # Lymphocytes # (Manual) (0.6-2.4) Monocytes # (Manual) (0.0-0.8) Absolute Metamyelocyte Absolute Myelocytes Nucleated RBCs # K/uL INR ABG pH (7.35-7.45) ABG pCO2 (35-45) mmHG ABG pO2 (80-105) mmHG ABG HCO3 (22-26) mEq/L ABG Total CO2 (23-27) mmol/L ABG Base Excess (-2.0-3.0) Sodium (136-145) mmol/L Potassium (3.5-5.1) mmol/L Chloride (98-107) mmol/L Carbon Dioxide (21.0-32.0) mmol/L BUN (7.0-18.0) mg/dL Creatinine (0.6-1.0) mg/dL Est Cr Clr Drug Dosing mL/min Estimated GFR (MDRD) ml/min Glucose (74-106) mg/dL POC Glucose 156 H (70-99) mg/dL Lactic Acid 1.9 (0.4-2.0) mmol/L Calcium (8.5-10.1) mg/dL Magnesium (1.8-2.4) mg/dL Total Bilirubin (0.2-1.0) mg/dL AST (15-37) IU/L ALT (14-63) IU/L Alkaline Phosphatase (46-116) U/L Creatine Kinase (26-308) U/L Troponin I < 0.050 (0.000-0.056) ng/mL B-Natriuretic Peptide (<100) PG/ML Total Protein (6.4-8.2) g/dL Albumin (3.4-5.0) g/dL Globulin (2.6-4.0) g/dL Albumin/Globulin Ratio (0.9-1.6) TSH 3rd Generation (0.36-3.74) uIU/mL Urine Color Urine Appearance Urine pH (5.0-8.0) Ur Specific [place] (1.001-1.035) Urine Protein (NEGATIVE) mg/dL Urine Glucose (UA) (NEGATIVE) mg/dL Urine Ketones (NEGATIVE) mg/dL Urine Occult Blood (NEGATIVE) Urine Nitrite (NEGATIVE) Urine Bilirubin (NEGATIVE) Urine Urobilinogen (<2.0) EU/dL Ur Leukocyte Esterase (NEGATIVE) Urine RBC (0-2/HPF) Urine WBC (0-5/HPF) Ur Epithelial Cells (NONE-FEW) Urine Bacteria (NEGATIVE) Influenza Type A RNA (NEGATIVE) Influenza Type B RNA (NEGATIVE) SARS-CoV-2 RNA (NIEVES) (NEGATIVE) 09/13/20 09/13/20 Range/Units 11:22 11:55 WBC (4.0-11.0) K/uL RBC (4.30-5.90) M/uL Hgb (12.0-16.0) g/dL Hct (36.0-46.0) % MCV (80.0-98.0) fL MCH (27.0-32.0) pg MCHC (31.0-37.0) g/dL RDW Std Deviation (28.0-62.0) fl RDW Coeff of [place]lin (11.0-15.0) % Plt Count (150-400) K/uL MPV (7.40-12.00) fL Neut % (Auto) (48.0-80.0) % Lymph % (Auto) (16.0-40.0) % [place] % (Auto) (0.0-15.0) % Eos % (Auto) (0.0-7.0) % Baso % (Auto) (0.0-1.5) % Neut # (Auto) (1.4-5.7) K/uL Lymph # (Auto) (0.6-2.4) K/uL [place] # (Auto) (0.0-0.8) K/uL Eos # (Auto) (0.0-0.7) K/uL Baso # (Auto) (0.0-0.1) K/uL Add Manual Diff Neutrophils % (Manual) (48.0-80.0) % Band Neutrophils % % Lymphocytes % (Manual) (16.0-40.0) % Monocytes % (Manual) (0.0-15.0) % Metamyelocytes % % Myelocytes % % Nucleated RBC % /100WBC Absolute Seg Neuts (1.4-5.7) Band Neutrophils # Lymphocytes # (Manual) (0.6-2.4) Monocytes # (Manual) (0.0-0.8) Absolute Metamyelocyte Absolute Myelocytes Nucleated RBCs # K/uL INR ABG pH (7.35-7.45) ABG pCO2 (35-45) mmHG ABG pO2 (80-105) mmHG ABG HCO3 (22-26) mEq/L ABG Total CO2 (23-27) mmol/L ABG Base Excess (-2.0-3.0) Sodium (136-145) mmol/L Potassium (3.5-5.1) mmol/L Chloride (98-107) mmol/L Carbon Dioxide (21.0-32.0) mmol/L BUN (7.0-18.0) mg/dL Creatinine (0.6-1.0) mg/dL Est Cr Clr Drug Dosing mL/min Estimated GFR (MDRD) ml/min Glucose (74-106) mg/dL POC Glucose 157 H (70-99) mg/dL Lactic Acid (0.4-2.0) mmol/L Calcium (8.5-10.1) mg/dL Magnesium (1.8-2.4) mg/dL Total Bilirubin (0.2-1.0) mg/dL AST (15-37) IU/L ALT (14-63) IU/L Alkaline Phosphatase (46-116) U/L Creatine Kinase (26-308) U/L Troponin I (0.000-0.056) ng/mL B-Natriuretic Peptide (<100) PG/ML Total Protein (6.4-8.2) g/dL Albumin (3.4-5.0) g/dL Globulin (2.6-4.0) g/dL Albumin/Globulin Ratio (0.9-1.6) TSH 3rd Generation (0.36-3.74) uIU/mL Urine Color YELLOW Urine Appearance CLEAR Urine pH 5.0 (5.0-8.0) Ur Specific [place] 1.010 (1.001-1.035) Urine Protein NEGATIVE (NEGATIVE) mg/dL Urine Glucose (UA) NEGATIVE (NEGATIVE) mg/dL Urine Ketones NEGATIVE (NEGATIVE) mg/dL Urine Occult Blood NEGATIVE (NEGATIVE) Urine Nitrite NEGATIVE (NEGATIVE) Urine Bilirubin NEGATIVE (NEGATIVE) Urine Urobilinogen 0.2 (<2.0) EU/dL Ur Leukocyte Esterase TRACE H (NEGATIVE) Urine RBC 0-1 (0-2/HPF) Urine WBC 0-1 (0-5/HPF) Ur Epithelial Cells OCCASIONAL (NONE-FEW) Urine Bacteria RARE (NEGATIVE) Influenza Type A RNA (NEGATIVE) Influenza Type B RNA (NEGATIVE) SARS-CoV-2 RNA (NIEVES) (NEGATIVE) Med Orders - Current: Current Medications Amlodipine Besylate (Amlodipine 5 Mg Tab) 5 mg PO BEDTIME [facility] Dextrose/Water (50% Dextrose In Water 50 Ml Syringe) 50 ml IVPUSH ASDIRECTED PRN PRN Reason: Hypoglycemia Glucagon (Glucagon,Human Recombinant 1 Mg Vial) 1 mg IM ASDIRECTED PRN PRN Reason: Hypoglycemia Sodium Chloride (Normal Saline) 1,000 mls @ 150 mls/hr IV ASDIRECTED [facility]ODERICK Last Admin: 09/13/20 06:20 Dose: 150 mls/hr Documented by: Levofloxacin/Dextrose 750 mg/ (Premix) 150 mls @ 100 mls/hr IV Q48H [facility] Insulin Aspart (Insulin Aspart 100 Units/Ml 3 Ml Pen) 0 unit SUBCUT TIDAC [facility]ODERICK; Protocol Last Admin: 09/13/20 12:12 Dose: 1 unit Documented by: Insulin Glargine (Insulin Glargine,Human Rec. Analog 100 Units/Ml 3 Ml Pen) 58 units SUBCUT BEDTIME [facility]ERICK Levothyroxine Sodium (Levothyroxine 25 Mcg Tab) 25 mcg PO QAM [facility] Last Admin: 09/13/20 08:09 Dose: 25 mcg Documented by: Metformin HCl (Metformin 500 Mg Tab.Er) 500 mg PO WITHMEALSANDBED [facility] Last Admin: 09/13/20 12:20 Dose: 500 mg Documented by: Metoprolol Succinate (Metoprolol Succinate 100 Mg Tab.Er) 100 mg PO QAM [facility] Last Admin: 09/13/20 08:07 Dose: 100 mg Documented by: Paroxetine HCl (Paroxetine 20 Mg Tab) 20 mg PO DAILY [facility] Last Admin: 09/13/20 08:08 Dose: 20 mg Documented by: Pregabalin (Pregabalin 50 Mg Cap) 100 mg PO WITHMEALSANDBED [facility] Last Admin: 09/13/20 12:13 Dose: 100 mg Documented by: Ramipril (Ramipril 10 Mg Cap) 20 mg PO DAILY [facility] Last Admin: 09/13/20 08:40 Dose: 20 mg Documented by: Simvastatin (Simvastatin 10 Mg Tab) 10 mg PO BEDTIME [facility] Discontinued Medications Baclofen (Baclofen 10 Mg Tab) 5 mg PO ONETIME ONE Stop: 09/13/20 00:47 Last Admin: 09/13/20 01:05 Dose: 5 mg Documented by: Levofloxacin/Dextrose 750 mg/ (Premix) 150 mls @ 100 mls/hr IV Q24H [facility] Last Admin: 09/13/20 01:07 Dose: 100 mls/hr Documented by: Magnesium Sulfate 2 gm/ Premix 50 mls @ 12.5 mls/hr IV NOW STA Stop: 09/13/20 08:04 Last Admin: 09/13/20 04:32 Dose: 12.5 mls/hr Documented by: Sodium Chloride (Normal Saline) 1,000 mls @ 999 mls/hr IV .Bolus ONE Stop: 09/13/20 05:59 Last Admin: 09/13/20 05:13 Dose: 999 mls/hr Documented by: Insulin Glargine (Insulin Glargine,Human Rec. Analog 100 Units/Ml 3 Ml Pen) 50 units SUBCUT ONETIME ONE Stop: 09/13/20 04:04 Last Admin: 09/13/20 04:26 Dose: 50 units Documented by: Iopamidol (Iopamidol 755 Mg/Ml 500 Ml Multipack Bottle) 100 ml IVPUSH ONETIME ONE Stop: 09/12/20 19:01 Last Admin: 09/12/20 19:01 Dose: 100 ml Documented by: - Exam General: Alert, Oriented Neck: Supple Lungs: Clear to Auscultation, Normal Respiratory Effort Cardiovascular: Regular Rate, Regular Rhythm GI/Abdominal Exam: Normal Bowel Sounds, Soft, Non-Tender Back Exam: Normal Inspection Extremities: Normal Inspection, Non-Tender, No Pedal Edema Skin: Warm, Dry, Intact Neurological: No New Focal Deficit - Patient Data Lab Results Last 24 hrs: Laboratory Results - last 24 hr 09/12/20 09/12/20 09/12/20 Range/Units 17:52 17:52 17:52 WBC 5.04 (4.0-11.0) K/uL RBC 4.25 L (4.30-5.90) M/uL Hgb 12.5 (12.0-16.0) g/dL Hct 38.3 (36.0-46.0) % MCV 90.1 (80.0-98.0) fL MCH 29.4 (27.0-32.0) pg MCHC 32.6 (31.0-37.0) g/dL RDW Std Deviation 48.6 (28.0-62.0) fl RDW Coeff of Kaylin 15 (11.0-15.0) % Plt Count 215 (150-400) K/uL MPV 9.80 (7.40-12.00) fL Neut % (Auto) (48.0-80.0) % Lymph % (Auto) (16.0-40.0) % [place] % (Auto) (0.0-15.0) % Eos % (Auto) (0.0-7.0) % Baso % (Auto) (0.0-1.5) % Neut # (Auto) (1.4-5.7) K/uL Lymph # (Auto) (0.6-2.4) K/uL [place] # (Auto) (0.0-0.8) K/uL Eos # (Auto) (0.0-0.7) K/uL Baso # (Auto) (0.0-0.1) K/uL Add Manual Diff YES Neutrophils % (Manual) 43 L (48.0-80.0) % Band Neutrophils % 36 % Lymphocytes % (Manual) 16 (16.0-40.0) % Monocytes % (Manual) 1 (0.0-15.0) % Metamyelocytes % 1 % Myelocytes % 3 % Nucleated RBC % 0.0 /100WBC Absolute Seg Neuts 2.2 (1.4-5.7) Band Neutrophils # 1.8 Lymphocytes # (Manual) 0.8 (0.6-2.4) Monocytes # (Manual) 0.1 (0.0-0.8) Absolute Metamyelocyte 0.1 Absolute Myelocytes 0.2 Nucleated RBCs # 0 K/uL INR 1.13 ABG pH (7.35-7.45) ABG pCO2 (35-45) mmHG ABG pO2 (80-105) mmHG ABG HCO3 (22-26) mEq/L ABG Total CO2 (23-27) mmol/L ABG Base Excess (-2.0-3.0) Sodium 141 (136-145) mmol/L Potassium 4.1 (3.5-5.1) mmol/L Chloride 101 (98-107) mmol/L Carbon Dioxide 30.6 (21.0-32.0) mmol/L BUN 19 H (7.0-18.0) mg/dL Creatinine 0.8 (0.6-1.0) mg/dL Est Cr Clr Drug Dosing 53.28 mL/min Estimated GFR (MDRD) > 60.0 ml/min Glucose 115 H (74-106) mg/dL POC Glucose (70-99) mg/dL Lactic Acid (0.4-2.0) mmol/L Calcium 9.0 (8.5-10.1) mg/dL Magnesium (1.8-2.4) mg/dL Total Bilirubin 0.5 (0.2-1.0) mg/dL AST 22 (15-37) IU/L ALT 28 (14-63) IU/L Alkaline Phosphatase 75 (46-116) U/L Creatine Kinase 83 (26-308) U/L Troponin I < 0.050 (0.000-0.056) ng/mL B-Natriuretic Peptide (<100) PG/ML Total Protein 7.6 (6.4-8.2) g/dL Albumin 3.7 (3.4-5.0) g/dL Globulin 3.9 (2.6-4.0) g/dL Albumin/Globulin Ratio 0.9 (0.9-1.6) TSH 3rd Generation (0.36-3.74) uIU/mL Urine Color Urine Appearance Urine pH (5.0-8.0) Ur Specific [place] (1.001-1.035) Urine Protein (NEGATIVE) mg/dL Urine Glucose (UA) (NEGATIVE) mg/dL Urine Ketones (NEGATIVE) mg/dL Urine Occult Blood (NEGATIVE) Urine Nitrite (NEGATIVE) Urine Bilirubin (NEGATIVE) Urine Urobilinogen (<2.0) EU/dL Ur Leukocyte Esterase (NEGATIVE) Urine RBC (0-2/HPF) Urine WBC (0-5/HPF) Ur Epithelial Cells (NONE-FEW) Urine Bacteria (NEGATIVE) Influenza Type A RNA (NEGATIVE) Influenza Type B RNA (NEGATIVE) SARS-CoV-2 RNA (NIEVES) (NEGATIVE) 09/12/20 09/12/20 09/12/20 Range/Units 17:52 21:00 21:00 WBC (4.0-11.0) K/uL RBC (4.30-5.90) M/uL Hgb (12.0-16.0) g/dL Hct (36.0-46.0) % MCV (80.0-98.0) fL MCH (27.0-32.0) pg MCHC (31.0-37.0) g/dL RDW Std Deviation (28.0-62.0) fl RDW Coeff of Kaylin (11.0-15.0) % Plt Count (150-400) K/uL MPV (7.40-12.00) fL Neut % (Auto) (48.0-80.0) % Lymph % (Auto) (16.0-40.0) % [place] % (Auto) (0.0-15.0) % Eos % (Auto) (0.0-7.0) % Baso % (Auto) (0.0-1.5) % Neut # (Auto) (1.4-5.7) K/uL Lymph # (Auto) (0.6-2.4) K/uL [place] # (Auto) (0.0-0.8) K/uL Eos # (Auto) (0.0-0.7) K/uL Baso # (Auto) (0.0-0.1) K/uL Add Manual Diff Neutrophils % (Manual) (48.0-80.0) % Band Neutrophils % % Lymphocytes % (Manual) (16.0-40.0) % Monocytes % (Manual) (0.0-15.0) % Metamyelocytes % % Myelocytes % % Nucleated RBC % /100WBC Absolute Seg Neuts (1.4-5.7) Band Neutrophils # Lymphocytes # (Manual) (0.6-2.4) Monocytes # (Manual) (0.0-0.8) Absolute Metamyelocyte Absolute Myelocytes Nucleated RBCs # K/uL INR ABG pH (7.35-7.45) ABG pCO2 (35-45) mmHG ABG pO2 (80-105) mmHG ABG HCO3 (22-26) mEq/L ABG Total CO2 (23-27) mmol/L ABG Base Excess (-2.0-3.0) Sodium (136-145) mmol/L Potassium (3.5-5.1) mmol/L Chloride (98-107) mmol/L Carbon Dioxide (21.0-32.0) mmol/L BUN (7.0-18.0) mg/dL Creatinine (0.6-1.0) mg/dL Est Cr Clr Drug Dosing mL/min Estimated GFR (MDRD) ml/min Glucose (74-106) mg/dL POC Glucose (70-99) mg/dL Lactic Acid (0.4-2.0) mmol/L Calcium (8.5-10.1) mg/dL Magnesium 1.5 L (1.8-2.4) mg/dL Total Bilirubin (0.2-1.0) mg/dL AST (15-37) IU/L ALT (14-63) IU/L Alkaline Phosphatase (46-116) U/L Creatine Kinase 72 (26-308) U/L Troponin I < 0.050 (0.000-0.056) ng/mL B-Natriuretic Peptide 12 (<100) PG/ML Total Protein (6.4-8.2) g/dL Albumin (3.4-5.0) g/dL Globulin (2.6-4.0) g/dL Albumin/Globulin Ratio (0.9-1.6) TSH 3rd Generation (0.36-3.74) uIU/mL Urine Color Urine Appearance Urine pH (5.0-8.0) Ur Specific [place] (1.001-1.035) Urine Protein (NEGATIVE) mg/dL Urine Glucose (UA) (NEGATIVE) mg/dL Urine Ketones (NEGATIVE) mg/dL Urine Occult Blood (NEGATIVE) Urine Nitrite (NEGATIVE) Urine Bilirubin (NEGATIVE) Urine Urobilinogen (<2.0) EU/dL Ur Leukocyte Esterase (NEGATIVE) Urine RBC (0-2/HPF) Urine WBC (0-5/HPF) Ur Epithelial Cells (NONE-FEW) Urine Bacteria (NEGATIVE) Influenza Type A RNA (NEGATIVE) Influenza Type B RNA (NEGATIVE) SARS-CoV-2 RNA (NIEVES) (NEGATIVE) 09/12/20 09/12/20 09/13/20 Range/Units 21:46 22:06 03:04 WBC (4.0-11.0) K/uL RBC (4.30-5.90) M/uL Hgb (12.0-16.0) g/dL Hct (36.0-46.0) % MCV (80.0-98.0) fL MCH (27.0-32.0) pg MCHC (31.0-37.0) g/dL RDW Std Deviation (28.0-62.0) fl RDW Coeff of Kaylin (11.0-15.0) % Plt Count (150-400) K/uL MPV (7.40-12.00) fL Neut % (Auto) (48.0-80.0) % Lymph % (Auto) (16.0-40.0) % [place] % (Auto) (0.0-15.0) % Eos % (Auto) (0.0-7.0) % Baso % (Auto) (0.0-1.5) % Neut # (Auto) (1.4-5.7) K/uL Lymph # (Auto) (0.6-2.4) K/uL [place] # (Auto) (0.0-0.8) K/uL Eos # (Auto) (0.0-0.7) K/uL Baso # (Auto) (0.0-0.1) K/uL Add Manual Diff Neutrophils % (Manual) (48.0-80.0) % Band Neutrophils % % Lymphocytes % (Manual) (16.0-40.0) % Monocytes % (Manual) (0.0-15.0) % Metamyelocytes % % Myelocytes % % Nucleated RBC % /100WBC Absolute Seg Neuts (1.4-5.7) Band Neutrophils # Lymphocytes # (Manual) (0.6-2.4) Monocytes # (Manual) (0.0-0.8) Absolute Metamyelocyte Absolute Myelocytes Nucleated RBCs # K/uL INR ABG pH 7.45 (7.35-7.45) ABG pCO2 38 (35-45) mmHG ABG pO2 69 L (80-105) mmHG ABG HCO3 27 H (22-26) mEq/L ABG Total CO2 24.2 (23-27) mmol/L ABG Base Excess 2.5 (-2.0-3.0) Sodium (136-145) mmol/L Potassium (3.5-5.1) mmol/L Chloride (98-107) mmol/L Carbon Dioxide (21.0-32.0) mmol/L BUN (7.0-18.0) mg/dL Creatinine (0.6-1.0) mg/dL Est Cr Clr Drug Dosing mL/min Estimated GFR (MDRD) ml/min Glucose (74-106) mg/dL POC Glucose (70-99) mg/dL Lactic Acid (0.4-2.0) mmol/L Calcium (8.5-10.1) mg/dL Magnesium (1.8-2.4) mg/dL Total Bilirubin (0.2-1.0) mg/dL AST (15-37) IU/L ALT (14-63) IU/L Alkaline Phosphatase (46-116) U/L Creatine Kinase (26-308) U/L Troponin I < 0.050 (0.000-0.056) ng/mL B-Natriuretic Peptide (<100) PG/ML Total Protein (6.4-8.2) g/dL Albumin (3.4-5.0) g/dL Globulin (2.6-4.0) g/dL Albumin/Globulin Ratio (0.9-1.6) TSH 3rd Generation (0.36-3.74) uIU/mL Urine Color Urine Appearance Urine pH (5.0-8.0) Ur Specific [place] (1.001-1.035) Urine Protein (NEGATIVE) mg/dL Urine Glucose (UA) (NEGATIVE) mg/dL Urine Ketones (NEGATIVE) mg/dL Urine Occult Blood (NEGATIVE) Urine Nitrite (NEGATIVE) Urine Bilirubin (NEGATIVE) Urine Urobilinogen (<2.0) EU/dL Ur Leukocyte Esterase (NEGATIVE) Urine RBC (0-2/HPF) Urine WBC (0-5/HPF) Ur Epithelial Cells (NONE-FEW) Urine Bacteria (NEGATIVE) Influenza Type A RNA NEGATIVE (NEGATIVE) Influenza Type B RNA NEGATIVE (NEGATIVE) SARS-CoV-2 RNA (NIEVES) NEGATIVE (NEGATIVE) 09/13/20 09/13/20 09/13/20 Range/Units 03:04 03:04 04:14 WBC 18.57 H (4.0-11.0) K/uL RBC 4.08 L (4.30-5.90) M/uL Hgb 11.9 L (12.0-16.0) g/dL Hct 36.3 (36.0-46.0) % MCV 89.0 (80.0-98.0) fL MCH 29.2 (27.0-32.0) pg MCHC 32.8 (31.0-37.0) g/dL RDW Std Deviation 48.9 (28.0-62.0) fl RDW Coeff of Kaylin 15 (11.0-15.0) % Plt Count 217 (150-400) K/uL MPV 9.90 (7.40-12.00) fL Neut % (Auto) 89.2 H (48.0-80.0) % Lymph % (Auto) 3.4 L (16.0-40.0) % [place] % (Auto) 7.1 (0.0-15.0) % Eos % (Auto) 0.1 (0.0-7.0) % Baso % (Auto) 0.2 (0.0-1.5) % Neut # (Auto) 16.6 H (1.4-5.7) K/uL Lymph # (Auto) 0.6 (0.6-2.4) K/uL [place] # (Auto) 1.3 H (0.0-0.8) K/uL Eos # (Auto) 0.0 (0.0-0.7) K/uL Baso # (Auto) 0.0 (0.0-0.1) K/uL Add Manual Diff Neutrophils % (Manual) (48.0-80.0) % Band Neutrophils % % Lymphocytes % (Manual) (16.0-40.0) % Monocytes % (Manual) (0.0-15.0) % Metamyelocytes % % Myelocytes % % Nucleated RBC % 0.1 /100WBC Absolute Seg Neuts (1.4-5.7) Band Neutrophils # Lymphocytes # (Manual) (0.6-2.4) Monocytes # (Manual) (0.0-0.8) Absolute Metamyelocyte Absolute Myelocytes Nucleated RBCs # 0 K/uL INR ABG pH (7.35-7.45) ABG pCO2 (35-45) mmHG ABG pO2 (80-105) mmHG ABG HCO3 (22-26) mEq/L ABG Total CO2 (23-27) mmol/L ABG Base Excess (-2.0-3.0) Sodium 137 (136-145) mmol/L Potassium 4.7 (3.5-5.1) mmol/L Chloride 100 (98-107) mmol/L Carbon Dioxide 26.8 (21.0-32.0) mmol/L BUN 22 H (7.0-18.0) mg/dL Creatinine 1.0 (0.6-1.0) mg/dL Est Cr Clr Drug Dosing 42.62 mL/min Estimated GFR (MDRD) 54.2 ml/min Glucose 230 H (74-106) mg/dL POC Glucose (70-99) mg/dL Lactic Acid 3.4 H* (0.4-2.0) mmol/L Calcium 8.8 (8.5-10.1) mg/dL Magnesium (1.8-2.4) mg/dL Total Bilirubin (0.2-1.0) mg/dL AST (15-37) IU/L ALT (14-63) IU/L Alkaline Phosphatase (46-116) U/L Creatine Kinase (26-308) U/L Troponin I (0.000-0.056) ng/mL B-Natriuretic Peptide (<100) PG/ML Total Protein (6.4-8.2) g/dL Albumin (3.4-5.0) g/dL Globulin (2.6-4.0) g/dL Albumin/Globulin Ratio (0.9-1.6) TSH 3rd Generation 2.24 (0.36-3.74) uIU/mL Urine Color Urine Appearance Urine pH (5.0-8.0) Ur Specific [place] (1.001-1.035) Urine Protein (NEGATIVE) mg/dL Urine Glucose (UA) (NEGATIVE) mg/dL Urine Ketones (NEGATIVE) mg/dL Urine Occult Blood (NEGATIVE) Urine Nitrite (NEGATIVE) Urine Bilirubin (NEGATIVE) Urine Urobilinogen (<2.0) EU/dL Ur Leukocyte Esterase (NEGATIVE) Urine RBC (0-2/HPF) Urine WBC (0-5/HPF) Ur Epithelial Cells (NONE-FEW) Urine Bacteria (NEGATIVE) Influenza Type A RNA (NEGATIVE) Influenza Type B RNA (NEGATIVE) SARS-CoV-2 RNA (NIEVES) (NEGATIVE) 09/13/20 09/13/20 09/13/20 Range/Units 06:51 09:13 09:13 WBC (4.0-11.0) K/uL RBC (4.30-5.90) M/uL Hgb (12.0-16.0) g/dL Hct (36.0-46.0) % MCV (80.0-98.0) fL MCH (27.0-32.0) pg MCHC (31.0-37.0) g/dL RDW Std Deviation (28.0-62.0) fl RDW Coeff of Kaylin (11.0-15.0) % Plt Count (150-400) K/uL MPV (7.40-12.00) fL Neut % (Auto) (48.0-80.0) % Lymph % (Auto) (16.0-40.0) % [place] % (Auto) (0.0-15.0) % Eos % (Auto) (0.0-7.0) % Baso % (Auto) (0.0-1.5) % Neut # (Auto) (1.4-5.7) K/uL Lymph # (Auto) (0.6-2.4) K/uL [place] # (Auto) (0.0-0.8) K/uL Eos # (Auto) (0.0-0.7) K/uL Baso # (Auto) (0.0-0.1) K/uL Add Manual Diff Neutrophils % (Manual) (48.0-80.0) % Band Neutrophils % % Lymphocytes % (Manual) (16.0-40.0) % Monocytes % (Manual) (0.0-15.0) % Metamyelocytes % % Myelocytes % % Nucleated RBC % /100WBC Absolute Seg Neuts (1.4-5.7) Band Neutrophils # Lymphocytes # (Manual) (0.6-2.4) Monocytes # (Manual) (0.0-0.8) Absolute Metamyelocyte Absolute Myelocytes Nucleated RBCs # K/uL INR ABG pH (7.35-7.45) ABG pCO2 (35-45) mmHG ABG pO2 (80-105) mmHG ABG HCO3 (22-26) mEq/L ABG Total CO2 (23-27) mmol/L ABG Base Excess (-2.0-3.0) Sodium (136-145) mmol/L Potassium (3.5-5.1) mmol/L Chloride (98-107) mmol/L Carbon Dioxide (21.0-32.0) mmol/L BUN (7.0-18.0) mg/dL Creatinine (0.6-1.0) mg/dL Est Cr Clr Drug Dosing mL/min Estimated GFR (MDRD) ml/min Glucose (74-106) mg/dL POC Glucose 156 H (70-99) mg/dL Lactic Acid 1.9 (0.4-2.0) mmol/L Calcium (8.5-10.1) mg/dL Magnesium (1.8-2.4) mg/dL Total Bilirubin (0.2-1.0) mg/dL AST (15-37) IU/L ALT (14-63) IU/L Alkaline Phosphatase (46-116) U/L Creatine Kinase (26-308) U/L Troponin I < 0.050 (0.000-0.056) ng/mL B-Natriuretic Peptide (<100) PG/ML Total Protein (6.4-8.2) g/dL Albumin (3.4-5.0) g/dL Globulin (2.6-4.0) g/dL Albumin/Globulin Ratio (0.9-1.6) TSH 3rd Generation (0.36-3.74) uIU/mL Urine Color Urine Appearance Urine pH (5.0-8.0) Ur Specific [place] (1.001-1.035) Urine Protein (NEGATIVE) mg/dL Urine Glucose (UA) (NEGATIVE) mg/dL Urine Ketones (NEGATIVE) mg/dL Urine Occult Blood (NEGATIVE) Urine Nitrite (NEGATIVE) Urine Bilirubin (NEGATIVE) Urine Urobilinogen (<2.0) EU/dL Ur Leukocyte Esterase (NEGATIVE) Urine RBC (0-2/HPF) Urine WBC (0-5/HPF) Ur Epithelial Cells (NONE-FEW) Urine Bacteria (NEGATIVE) Influenza Type A RNA (NEGATIVE) Influenza Type B RNA (NEGATIVE) SARS-CoV-2 RNA (NIEVES) (NEGATIVE) 09/13/20 09/13/20 Range/Units 11:22 11:55 WBC (4.0-11.0) K/uL RBC (4.30-5.90) M/uL Hgb (12.0-16.0) g/dL Hct (36.0-46.0) % MCV (80.0-98.0) fL MCH (27.0-32.0) pg MCHC (31.0-37.0) g/dL RDW Std Deviation (28.0-62.0) fl RDW Coeff of [place] (11.0-15.0) % Plt Count (150-400) K/uL MPV (7.40-12.00) fL Neut % (Auto) (48.0-80.0) % Lymph % (Auto) (16.0-40.0) % [place] % (Auto) (0.0-15.0) % Eos % (Auto) (0.0-7.0) % Baso % (Auto) (0.0-1.5) % Neut # (Auto) (1.4-5.7) K/uL Lymph # (Auto) (0.6-2.4) K/uL [place] # (Auto) (0.0-0.8) K/uL Eos # (Auto) (0.0-0.7) K/uL Baso # (Auto) (0.0-0.1) K/uL Add Manual Diff Neutrophils % (Manual) (48.0-80.0) % Band Neutrophils % % Lymphocytes % (Manual) (16.0-40.0) % Monocytes % (Manual) (0.0-15.0) % Metamyelocytes % % Myelocytes % % Nucleated RBC % /100WBC Absolute Seg Neuts (1.4-5.7) Band Neutrophils # Lymphocytes # (Manual) (0.6-2.4) Monocytes # (Manual) (0.0-0.8) Absolute Metamyelocyte Absolute Myelocytes Nucleated RBCs # K/uL INR ABG pH (7.35-7.45) ABG pCO2 (35-45) mmHG ABG pO2 (80-105) mmHG ABG HCO3 (22-26) mEq/L ABG Total CO2 (23-27) mmol/L ABG Base Excess (-2.0-3.0) Sodium (136-145) mmol/L Potassium (3.5-5.1) mmol/L Chloride (98-107) mmol/L Carbon Dioxide (21.0-32.0) mmol/L BUN (7.0-18.0) mg/dL Creatinine (0.6-1.0) mg/dL Est Cr Clr Drug Dosing mL/min Estimated GFR (MDRD) ml/min Glucose (74-106) mg/dL POC Glucose 157 H (70-99) mg/dL Lactic Acid (0.4-2.0) mmol/L Calcium (8.5-10.1) mg/dL Magnesium (1.8-2.4) mg/dL Total Bilirubin (0.2-1.0) mg/dL AST (15-37) IU/L ALT (14-63) IU/L Alkaline Phosphatase (46-116) U/L Creatine Kinase (26-308) U/L Troponin I (0.000-0.056) ng/mL B-Natriuretic Peptide (<100) PG/ML Total Protein (6.4-8.2) g/dL Albumin (3.4-5.0) g/dL Globulin (2.6-4.0) g/dL Albumin/Globulin Ratio (0.9-1.6) TSH 3rd Generation (0.36-3.74) uIU/mL Urine Color YELLOW Urine Appearance CLEAR Urine pH 5.0 (5.0-8.0) Ur Specific [place] 1.010 (1.001-1.035) Urine Protein NEGATIVE (NEGATIVE) mg/dL Urine Glucose (UA) NEGATIVE (NEGATIVE) mg/dL Urine Ketones NEGATIVE (NEGATIVE) mg/dL Urine Occult Blood NEGATIVE (NEGATIVE) Urine Nitrite NEGATIVE (NEGATIVE) Urine Bilirubin NEGATIVE (NEGATIVE) Urine Urobilinogen 0.2 (<2.0) EU/dL Ur Leukocyte Esterase TRACE H (NEGATIVE) Urine RBC 0-1 (0-2/HPF) Urine WBC 0-1 (0-5/HPF) Ur Epithelial Cells OCCASIONAL (NONE-FEW) Urine Bacteria RARE (NEGATIVE) Influenza Type A RNA (NEGATIVE) Influenza Type B RNA (NEGATIVE) SARS-CoV-2 RNA (NIEVES) (NEGATIVE) Result Diagrams: 09/13/20 03:04 09/13/20 03:04 Sepsis Event Note - Evaluation Sepsis Screening Result: No Definite Risk - Focused Exam Vital Signs: Vital Signs Temp Pulse Pulse Resp BP BP BP 09/13/20 08:40 143/67 H 09/13/20 08:07 101 H 169/74 H 09/13/20 08:00 36.7 C 99 18 127/59 L 09/13/20 07:30 36.7 C 101 H 19 153/67 H 09/13/20 07:00 96 19 127/59 L 09/13/20 06:15 96 18 139/72 09/13/20 06:00 36.3 C 96 19 138/66 09/13/20 05:46 96 18 139/69 09/13/20 05:30 36.4 C 18 138/67 09/13/20 03:11 09/13/20 03:10 37 C 98 18 128/77 Pulse Ox Pulse Ox 09/13/20 08:40 09/13/20 08:07 09/13/20 08:00 97 09/13/20 07:30 95 09/13/20 07:00 96 09/13/20 06:15 97 09/13/20 06:00 97 09/13/20 05:46 98 09/13/20 05:30 99 09/13/20 03:11 94 L 09/13/20 03:10 94 L - Problem List Review Problem List Initiated/Reviewed/Updated: Yes - My Orders Last 24 Hours: My Active Orders 09/12/20 22:16 Telemetry Monitoring [Cardiac Monitoring] [RC] Q8H 09/12/20 23:45 Incentive Spirometry [RT Incentive Spirometry] [RC] Q1HWA 09/13/20 00:44 Blood Glucose Check, Bedside [RC] TIDAC Dextrose 50% in Water 50 ml IVPUSH ASDIRECTED PRN Glucagon,Human Recombinant [GlucaGen] 1 mg IM ASDIRECTED PRN 09/13/20 00:45 Oxygen Therapy [RC] PRN Up ad Nata [RC] ASDIRECTED VTE/DVT Education [RC] PER UNIT ROUTINE Vital Signs [RC] Q4H Sequential Compression Device [OM.PC] Per Unit Routine Resuscitation Status Routine 09/13/20 00:46 Antiembolic Devices [RC] PER UNIT ROUTINE 09/13/20 05:38 CULTURE BLOOD [BC] Routine 09/13/20 06:00 CULTURE BLOOD [BC] Routine Sodium Chloride 0.9% [Normal Saline] 1,000 ml IV ASDIRECTED 09/13/20 Breakfast [employer] Diet [DIET] 09/13/20 07:30 Insulin Aspart [NovoLOG] See Protocol SUBCUT TIDAC 09/13/20 08:00 metFORMIN [Glucophage XR] 500 mg PO WITHMEALSANDBED 09/13/20 09:00 Levothyroxine 25 mcg PO QAM Metoprolol Succinate [Toprol XL] 100 mg PO QAM PARoxetine [Paxil] 20 mg PO DAILY ramipriL [Altace] 20 mg PO DAILY 09/13/20 21:00 Insulin Glarg,Human.Rec.Analog [LantUS Solostar] 58 units SUBCUT BEDTIME Simvastatin [Zocor] 10 mg PO BEDTIME amLODIPine [Norvasc] 5 mg PO BEDTIME 09/14/20 05:11 CBC WITH AUTO DIFF [HEME] AM COMPREHENSIVE METABOLIC PN,CMP [CHEM] AM MAGNESIUM [CHEM] AM 09/14/20 21:00 Levofloxacin/Dextrose 5%-Water [Levaquin in D5W 750 MG/150 ML] 750 mg Premix Bag 1 bag IV Q48H - Plan Plan:: 75 yo female admitted for muscle spasms, possible rigors. Repeat labs this morning revealed elevated white count and lactic acid. Lactic acid normalized with IV fluid bolus. No obvious source of infection, We will continue Levaquin. Patient does not appear septic.
[2020-09-13] MEDS ORDERED: Insulin Glargine,Human Rec. Analog 100 Units/ML 3 ML Pen SUBCUT SCH (21:00)
[2020-09-13] MEDS ORDERED: Simvastatin 10 MG Tab PO SCH (21:00)
[2020-09-13] MEDS ORDERED: amLODIPine 5 MG Tab PO SCH (21:00)
[2020-09-14] MEDS: Sodium Chloride 0.9% 1,000 ML IV SCH (03:45)
[2020-09-14 05:52] LABS: BLOOD UREA NITROGEN,BUN 11 mg/dL (7.0-18.0); CARBON DIOXIDE,CO2 26.9 mmol/L (21.0-32.0); CHLORIDE,CL 107 mmol/L (98-107); GLUCOSE RANDOM 102 mg/dL (74-106); POTASSIUM,K 3.4 mmol/L (3.5-5.1); SODIUM,NA 142 mmol/L (136-145)
[2020-09-14] MEDS: Insulin Aspart 100 Units/ML 3 ML Pen SUBCUT SCH ×2 (06:50→11:53)
[2020-09-14] MEDS: Levothyroxine 25 MCG Tab PO SCH (08:53)
[2020-09-14] MEDS: PARoxetine 20 MG Tab PO SCH (08:53)
[2020-09-14] MEDS: Pregabalin 50 MG Cap PO SCH ×2 (08:54→12:19)
[2020-09-14] MEDS: Metoprolol Succinate 100 MG Tab.ER PO SCH (08:55)
[2020-09-14] MEDS: metFORMIN 500 MG Tab.ER PO SCH ×2 (08:59→12:18)
[2020-09-14] MEDS ORDERED: Levofloxacin/Dextrose 5%-Water 750 MG in Premix Bag 1 BAG IV SCH (09:00)
[2020-09-14] MEDS ORDERED: Potassium Chloride 20 MEQ Tab.ER PO ONE (09:16)
[2020-09-14] MEDS ORDERED: Levofloxacin 250 MG Tab PO ONE (09:21)
[2020-09-14 11:24] VITALS: BP 144/75; PULSE 82
--- NOTE | 2020-09-14 12:41 | PCM.PN ---
- General Info Date of Service: 09/14/20 - Review of Systems Systems Review Comment:: 75 yo female with pmh of diabetes, hypertension, and hypothyrodism who presented with one day history of muscle spasms of her back, neck, feet and chest. Patient reports shaking so hard she was unable to grab on to anything. She denies any fevers but did reports sweets and feeling cold. She denies any shortness of breath but does report cough. She was found to be hypoxic requiring 3 L NC to keep sats above 90%. CT chest was negative for PE but did show atelectasis and findings consistent with UIP. Shortly after admission she did have an elevation of her white count from 5 to 18 and lactic acid of 3. She was treated with IV fluids and Levaquin for an infection but no source was identified. She was weened off her oxygen and satting 92% on RA. Her white count resolved. It was thought she could have also been suffering from heat exhaustion. Today she is requesting discharge home and refusing any more IV draws or IV therapy. Patient was discharged home with five more days of levaquin to follow up with her PCP. - Patient Data Vitals - Most Recent: Last Vital Signs Temp 36.6 C 09/14/20 11:21 Pulse 82 09/14/20 11:21 Resp 16 09/14/20 11:21 BP 144/75 H 09/14/20 11:21 Pulse Ox 92 L 09/14/20 11:21 Weight - Most Recent: 193.684 kg I&O - Last 24 Hours: Intake & Output 09/13/20 09/14/20 09/14/20 22:59 06:59 14:59 Intake Total 620 2198 810 Output Total 400 1100 Balance 220 1098 810 Lab Results Last 24 Hours: Laboratory Results - last 24 hr 09/13/20 09/13/20 09/14/20 Range/Units 17:07 21:17 05:08 WBC 9.01 (4.0-11.0) K/uL RBC 3.55 L (4.30-5.90) M/uL Hgb 10.3 L (12.0-16.0) g/dL Hct 31.8 L (36.0-46.0) % MCV 89.6 (80.0-98.0) fL MCH 29.0 (27.0-32.0) pg MCHC 32.4 (31.0-37.0) g/dL RDW Std Deviation 49.8 (28.0-62.0) fl RDW Coeff of [place] 15 (11.0-15.0) % Plt Count 166 (150-400) K/uL MPV 9.80 (7.40-12.00) fL Neut % (Auto) 66.6 (48.0-80.0) % Lymph % (Auto) 15.5 L (16.0-40.0) % [place] % (Auto) 16.3 H (0.0-15.0) % Eos % (Auto) 1.3 (0.0-7.0) % Baso % (Auto) 0.3 (0.0-1.5) % Neut # (Auto) 6.0 H (1.4-5.7) K/uL Lymph # (Auto) 1.4 (0.6-2.4) K/uL [place] # (Auto) 1.5 H (0.0-0.8) K/uL Eos # (Auto) 0.1 (0.0-0.7) K/uL Baso # (Auto) 0.0 (0.0-0.1) K/uL Nucleated RBC % 0.0 /100WBC Nucleated RBCs # 0 K/uL Sodium (136-145) mmol/L Potassium (3.5-5.1) mmol/L Chloride (98-107) mmol/L Carbon Dioxide (21.0-32.0) mmol/L BUN (7.0-18.0) mg/dL Creatinine (0.6-1.0) mg/dL Est Cr Clr Drug Dosing mL/min Estimated GFR (MDRD) ml/min Glucose (74-106) mg/dL POC Glucose 185 H 205 H (70-99) mg/dL Calcium (8.5-10.1) mg/dL Magnesium (1.8-2.4) mg/dL Total Bilirubin (0.2-1.0) mg/dL AST (15-37) IU/L ALT (14-63) IU/L Alkaline Phosphatase (46-116) U/L Total Protein (6.4-8.2) g/dL Albumin (3.4-5.0) g/dL Globulin (2.6-4.0) g/dL Albumin/Globulin Ratio (0.9-1.6) 09/14/20 09/14/20 Range/Units 05:08 06:43 WBC (4.0-11.0) K/uL RBC (4.30-5.90) M/uL Hgb (12.0-16.0) g/dL Hct (36.0-46.0) % MCV (80.0-98.0) fL MCH (27.0-32.0) pg MCHC (31.0-37.0) g/dL RDW Std Deviation (28.0-62.0) fl RDW Coeff of [place] (11.0-15.0) % Plt Count (150-400) K/uL MPV (7.40-12.00) fL Neut % (Auto) (48.0-80.0) % Lymph % (Auto) (16.0-40.0) % [place] % (Auto) (0.0-15.0) % Eos % (Auto) (0.0-7.0) % Baso % (Auto) (0.0-1.5) % Neut # (Auto) (1.4-5.7) K/uL Lymph # (Auto) (0.6-2.4) K/uL [place] # (Auto) (0.0-0.8) K/uL Eos # (Auto) (0.0-0.7) K/uL Baso # (Auto) (0.0-0.1) K/uL Nucleated RBC % /100WBC Nucleated RBCs # K/uL Sodium 142 (136-145) mmol/L Potassium 3.4 L (3.5-5.1) mmol/L Chloride 107 (98-107) mmol/L Carbon Dioxide 26.9 (21.0-32.0) mmol/L BUN 11 (7.0-18.0) mg/dL Creatinine 0.6 (0.6-1.0) mg/dL Est Cr Clr Drug Dosing 71.03 mL/min Estimated GFR (MDRD) > 60.0 ml/min Glucose 102 (74-106) mg/dL POC Glucose 86 (70-99) mg/dL Calcium 7.4 L (8.5-10.1) mg/dL Magnesium 1.9 (1.8-2.4) mg/dL Total Bilirubin 0.3 (0.2-1.0) mg/dL AST 25 (15-37) IU/L ALT 23 (14-63) IU/L Alkaline Phosphatase 52 (46-116) U/L Total Protein 6.0 L (6.4-8.2) g/dL Albumin 2.8 L (3.4-5.0) g/dL Globulin 3.2 (2.6-4.0) g/dL Albumin/Globulin Ratio 0.9 (0.9-1.6) Jt Results Last 24 Hours: Microbiology 09/13/20 06:00 Aerobic Blood Culture - Preliminary Blood NO GROWTH AFTER 1 DAY Anaerobic Blood Culture - Preliminary NO GROWTH AFTER 1 DAY 09/13/20 05:38 Aerobic Blood Culture - Preliminary Blood NO GROWTH AFTER 1 DAY Anaerobic Blood Culture - Preliminary NO GROWTH AFTER 1 DAY Med Orders - Current: Current Medications Amlodipine Besylate (Amlodipine 5 Mg Tab) 5 mg PO BEDTIME [facility] Last Admin: 09/13/20 21:19 Dose: 5 mg Documented by: Dextrose/Water (50% Dextrose In Water 50 Ml Syringe) 50 ml IVPUSH ASDIRECTED PRN PRN Reason: Hypoglycemia Glucagon (Glucagon,Human Recombinant 1 Mg Vial) 1 mg IM ASDIRECTED PRN PRN Reason: Hypoglycemia Levofloxacin/Dextrose 750 mg/ (Premix) 150 mls @ 100 mls/hr IV Q24H [facility] Last Admin: 09/14/20 08:38 Dose: 100 mls/hr Documented by: Insulin Aspart (Insulin Aspart 100 Units/Ml 3 Ml Pen) 0 unit SUBCUT TIDAC [facility]; Protocol Last Admin: 09/14/20 11:53 Dose: 1 unit Documented by: Insulin Glargine (Insulin Glargine,Human Rec. Analog 100 Units/Ml 3 Ml Pen) 58 units SUBCUT BEDTIME [facility] Last Admin: 09/13/20 21:20 Dose: 58 units Documented by: Levothyroxine Sodium (Levothyroxine 25 Mcg Tab) 25 mcg PO QAM [facility] Last Admin: 09/14/20 08:53 Dose: 25 mcg Documented by: Metformin HCl (Metformin 500 Mg Tab.Er) 500 mg PO WITHMEALSANDBED [facility] Last Admin: 09/14/20 12:18 Dose: 500 mg Documented by: Metoprolol Succinate (Metoprolol Succinate 100 Mg Tab.Er) 100 mg PO QAM [facility] Last Admin: 09/14/20 08:55 Dose: 100 mg Documented by: Paroxetine HCl (Paroxetine 20 Mg Tab) 20 mg PO DAILY [facility] Last Admin: 09/14/20 08:53 Dose: 20 mg Documented by: Pregabalin (Pregabalin 50 Mg Cap) 100 mg PO WITHMEALSANDBED [facility] Last Admin: 09/14/20 12:19 Dose: 100 mg Documented by: Ramipril (Ramipril 10 Mg Cap) 20 mg PO DAILY [facility] Last Admin: 09/14/20 08:59 Dose: 20 mg Documented by: Simvastatin (Simvastatin 10 Mg Tab) 10 mg PO BEDTIME [facility] Last Admin: 09/13/20 21:19 Dose: 10 mg Documented by: Discontinued Medications Baclofen (Baclofen 10 Mg Tab) 5 mg PO ONETIME ONE Stop: 09/13/20 00:47 Last Admin: 09/13/20 01:05 Dose: 5 mg Documented by: Levofloxacin/Dextrose 750 mg/ (Premix) 150 mls @ 100 mls/hr IV Q24H [facility] Last Admin: 09/13/20 01:07 Dose: 100 mls/hr Documented by: Magnesium Sulfate 2 gm/ Premix 50 mls @ 12.5 mls/hr IV NOW STA Stop: 09/13/20 08:04 Last Admin: 09/13/20 04:32 Dose: 12.5 mls/hr Documented by: Sodium Chloride (Normal Saline) 1,000 mls @ 999 mls/hr IV .Bolus ONE Stop: 09/13/20 05:59 Last Admin: 09/13/20 05:13 Dose: 999 mls/hr Documented by: Sodium Chloride (Normal Saline) 1,000 mls @ 150 mls/hr IV ASDIRECTED [facility] Last Admin: 09/14/20 03:45 Dose: 150 mls/hr Documented by: Insulin Glargine (Insulin Glargine,Human Rec. Analog 100 Units/Ml 3 Ml Pen) 50 units SUBCUT ONETIME ONE Stop: 09/13/20 04:04 Last Admin: 09/13/20 04:26 Dose: 50 units Documented by: Iopamidol (Iopamidol 755 Mg/Ml 500 Ml Multipack Bottle) 100 ml IVPUSH ONETIME ONE Stop: 09/12/20 19:01 Last Admin: 09/12/20 19:01 Dose: 100 ml Documented by: Levofloxacin (Levofloxacin 250 Mg Tab) 250 mg PO Q24H ONE Stop: 09/14/20 09:22 Last Admin: 09/14/20 09:44 Dose: 250 mg Documented by: Potassium Chloride (Potassium Chloride 20 Meq Tab.Er) 40 meq PO ONETIME ONE Stop: 09/14/20 09:17 Last Admin: 09/14/20 09:45 Dose: 40 meq Documented by: - Patient Data Lab Results Last 24 hrs: Laboratory Results - last 24 hr 09/13/20 09/13/20 09/14/20 Range/Units 17:07 21:17 05:08 WBC 9.01 (4.0-11.0) K/uL RBC 3.55 L (4.30-5.90) M/uL Hgb 10.3 L (12.0-16.0) g/dL Hct 31.8 L (36.0-46.0) % MCV 89.6 (80.0-98.0) fL MCH 29.0 (27.0-32.0) pg MCHC 32.4 (31.0-37.0) g/dL RDW Std Deviation 49.8 (28.0-62.0) fl RDW Coeff of Kaylin 15 (11.0-15.0) % Plt Count 166 (150-400) K/uL MPV 9.80 (7.40-12.00) fL Neut % (Auto) 66.6 (48.0-80.0) % Lymph % (Auto) 15.5 L (16.0-40.0) % Sutton % (Auto) 16.3 H (0.0-15.0) % Eos % (Auto) 1.3 (0.0-7.0) % Baso % (Auto) 0.3 (0.0-1.5) % Neut # (Auto) 6.0 H (1.4-5.7) K/uL Lymph # (Auto) 1.4 (0.6-2.4) K/uL Sutton # (Auto) 1.5 H (0.0-0.8) K/uL Eos # (Auto) 0.1 (0.0-0.7) K/uL Baso # (Auto) 0.0 (0.0-0.1) K/uL Nucleated RBC % 0.0 /100WBC Nucleated RBCs # 0 K/uL Sodium (136-145) mmol/L Potassium (3.5-5.1) mmol/L Chloride (98-107) mmol/L Carbon Dioxide (21.0-32.0) mmol/L BUN (7.0-18.0) mg/dL Creatinine (0.6-1.0) mg/dL Est Cr Clr Drug Dosing mL/min Estimated GFR (MDRD) ml/min Glucose (74-106) mg/dL POC Glucose 185 H 205 H (70-99) mg/dL Calcium (8.5-10.1) mg/dL Magnesium (1.8-2.4) mg/dL Total Bilirubin (0.2-1.0) mg/dL AST (15-37) IU/L ALT (14-63) IU/L Alkaline Phosphatase (46-116) U/L Total Protein (6.4-8.2) g/dL Albumin (3.4-5.0) g/dL Globulin (2.6-4.0) g/dL Albumin/Globulin Ratio (0.9-1.6) 09/14/20 09/14/20 Range/Units 05:08 06:43 WBC (4.0-11.0) K/uL RBC (4.30-5.90) M/uL Hgb (12.0-16.0) g/dL Hct (36.0-46.0) % MCV (80.0-98.0) fL MCH (27.0-32.0) pg MCHC (31.0-37.0) g/dL RDW Std Deviation (28.0-62.0) fl RDW Coeff of Kaylin (11.0-15.0) % Plt Count (150-400) K/uL MPV (7.40-12.00) fL Neut % (Auto) (48.0-80.0) % Lymph % (Auto) (16.0-40.0) % Sutton % (Auto) (0.0-15.0) % Eos % (Auto) (0.0-7.0) % Baso % (Auto) (0.0-1.5) % Neut # (Auto) (1.4-5.7) K/uL Lymph # (Auto) (0.6-2.4) K/uL Sutton # (Auto) (0.0-0.8) K/uL Eos # (Auto) (0.0-0.7) K/uL Baso # (Auto) (0.0-0.1) K/uL Nucleated RBC % /100WBC Nucleated RBCs # K/uL Sodium 142 (136-145) mmol/L Potassium 3.4 L (3.5-5.1) mmol/L Chloride 107 (98-107) mmol/L Carbon Dioxide 26.9 (21.0-32.0) mmol/L BUN 11 (7.0-18.0) mg/dL Creatinine 0.6 (0.6-1.0) mg/dL Est Cr Clr Drug Dosing 71.03 mL/min Estimated GFR (MDRD) > 60.0 ml/min Glucose 102 (74-106) mg/dL POC Glucose 86 (70-99) mg/dL Calcium 7.4 L (8.5-10.1) mg/dL Magnesium 1.9 (1.8-2.4) mg/dL Total Bilirubin 0.3 (0.2-1.0) mg/dL AST 25 (15-37) IU/L ALT 23 (14-63) IU/L Alkaline Phosphatase 52 (46-116) U/L Total Protein 6.0 L (6.4-8.2) g/dL Albumin 2.8 L (3.4-5.0) g/dL Globulin 3.2 (2.6-4.0) g/dL Albumin/Globulin Ratio 0.9 (0.9-1.6) Result Diagrams: 09/14/20 05:08 09/14/20 05:08 Jt Results Last 24 hrs: Microbiology 09/13/20 06:00 Aerobic Blood Culture - Preliminary Blood NO GROWTH AFTER 1 DAY Anaerobic Blood Culture - Preliminary NO GROWTH AFTER 1 DAY 09/13/20 05:38 Aerobic Blood Culture - Preliminary Blood NO GROWTH AFTER 1 DAY Anaerobic Blood Culture - Preliminary NO GROWTH AFTER 1 DAY Sepsis Event Note - Evaluation Sepsis Screening Result: No Definite Risk - Focused Exam Vital Signs: Vital Signs Temp Pulse Pulse Resp BP BP Pulse Ox 09/14/20 11:21 36.6 C 82 16 144/75 H 92 L 09/14/20 08:59 156/76 H 09/14/20 08:55 88 156/76 H 09/14/20 08:47 36.2 C 86 14 137/73 92 L 09/14/20 05:52 09/14/20 04:00 91 L 09/14/20 03:55 88 L 09/14/20 03:41 36.3 C 85 18 114/58 L 93 L Pulse Ox 09/14/20 11:21 09/14/20 08:59 09/14/20 08:55 09/14/20 08:47 09/14/20 05:52 91 L 09/14/20 04:00 09/14/20 03:55 09/14/20 03:41 - My Orders Last 24 Hours: My Active Orders 09/13/20 21:00 Insulin Glarg,Human.Rec.Analog [LantUS Solostar] 58 units SUBCUT BEDTIME Simvastatin [Zocor] 10 mg PO BEDTIME amLODIPine [Norvasc] 5 mg PO BEDTIME 09/14/20 09:00 Levofloxacin/Dextrose 5%-Water [Levaquin in D5W 750 MG/150 ML] 750 mg Premix Bag 1 bag IV Q24H 09/14/20 12:32 Ready for Discharge [RC] PER UNIT ROUTINE - Plan Plan:: 75 yo female admitted for muscle spasms, possible rigors. Repeat labs this morning revealed elevated white count and lactic acid. Lactic acid normalized with IV fluid bolus. No obvious source of infection, We will continue Levaquin. Patient does not appear septic.
--- NOTE | 2020-09-14 13:04 | PCM.DCSUM1 ---
Discharge Summary - Discharge Data Discharge Date: 09/14/20 Discharge Disposition: Home, Self-Care 01 Condition: Good - Referral to Home Health Primary Care Physician: Pio Alegre MD - Patient Summary/Data Hospital Course: 75 yo female with pmh of diabetes, hypertension, and hypothyrodism who presented with one day history of muscle spasms of her back, neck, feet and chest. Patient reports shaking so hard she was unable to grab on to anything. She denies any fevers but did reports sweets and feeling cold. She denies any shortness of breath but does report cough. She was found to be hypoxic requiring 3 L NC to keep sats above 90%. CT chest was negative for PE but did show atelectasis and findings consistent with UIP. Shortly after admission she did have an elevation of her white count from 5 to 18 and lactic acid of 3. She was treated with IV fluids and Levaquin for an infection but no source was identified. She was weened off her oxygen and satting 93% on RA. Her white count resolved. It was thought she could have also been suffering from heat exhaustion. Today she is requesting discharge home and refusing any more IV draws or IV therapy. Patient was discharged home with five more days of levaquin to follow up with her PCP. - Patient Instructions Diet: Diabetic Diet Activity: As Tolerated Notify Provider of: Fever, Increased Pain, Swelling and Redness, Nausea and/or Vomiting - Discharge Plan Prescriptions/Med Rec: Levofloxacin [Levaquin] 500 mg PO DAILY #5 tablet Home Medications: Home Meds Liraglutide [Victoza] 1.2 mg SUBCUT QAM 09/27/14 [History] PARoxetine [Paxil] 20 mg PO DAILY 09/27/14 [History] Simvastatin [Zocor] 10 mg PO BEDTIME 09/27/14 [History] metFORMIN [Glucophage XR] 500 mg PO WITHMEALSANDBED 09/27/14 [History] ramipriL [Altace] 20 mg PO DAILY 09/27/14 [History] Insulin Degludec [Tresiba Flextouch U-100] 58 unit SQ BEDTIME 12/24/16 [History] Insulin Lispro [Humalog Kwikpen U-100] 17 unit SQ WITHBREAKFAST 12/24/16 [History] Metoprolol Succinate [Toprol XL] 100 mg PO QAM 10/23/17 [History] Pregabalin [Lyrica] 100 mg PO WITHMEALSANDBED 12/24/16 [History] Ibuprofen [Advil] 200 mg PO BID 06/26/17 [History] Multivitamin [Multivitamins] 1 tab PO DAILY 06/26/17 [History] amLODIPine Besylate [Amlodipine Besylate] 5 mg PO BEDTIME 06/26/17 [History] Cholecalciferol (Vitamin D3) [Vitamin D3] 400 unit PO DAILY 10/29/17 [History] Levothyroxine 25 mcg PO QAM 10/29/17 [History] Cinnamon Bark [Cinnamon] 1 mg PO DAILY 09/12/20 [History] Fish Oil/Borage/Flax/Om3,6,9 1 [[place] 3-6-9 Complex Softgel] 400 mg PO DAILY 09/12/20 [History] Insulin Lispro [Humalog Kwikpen U-100] 7 units SUBCUT WITHLUNCH 09/13/20 [History] Insulin Lispro [Humalog Kwikpen U-100] 15 unit PO WITHDINNER 09/13/20 [History] Levofloxacin [Levaquin] 500 mg PO DAILY #5 tablet 09/14/20 [Rx] Patient Handouts: Hypoxia, Levofloxacin tablets Referrals: Pio Alegre MD [Primary Care Provider] - 09/20/20 12:30 pm - Discharge Summary/Plan Comment DC Time >30 min.: No - Patient Data Vitals - Most Recent: Last Vital Signs Temp 36.6 C 09/14/20 11:21 Pulse 82 09/14/20 11:21 Resp 16 09/14/20 11:21 BP 144/75 H 09/14/20 11:21 Pulse Ox 93 L 09/14/20 12:38 Weight - Most Recent: 193.684 kg I&O - Last 24 hours: Intake & Output 09/13/20 09/14/20 09/14/20 22:59 06:59 14:59 Intake Total 620 2198 810 Output Total 400 1100 Balance 220 1098 810 Lab Results - Last 24 hrs: Laboratory Results - last 24 hr 09/13/20 09/13/20 09/14/20 Range/Units 17:07 21:17 05:08 WBC 9.01 (4.0-11.0) K/uL RBC 3.55 L (4.30-5.90) M/uL Hgb 10.3 L (12.0-16.0) g/dL Hct 31.8 L (36.0-46.0) % MCV 89.6 (80.0-98.0) fL MCH 29.0 (27.0-32.0) pg MCHC 32.4 (31.0-37.0) g/dL RDW Std Deviation 49.8 (28.0-62.0) fl RDW Coeff of Kaylin 15 (11.0-15.0) % Plt Count 166 (150-400) K/uL MPV 9.80 (7.40-12.00) fL Neut % (Auto) 66.6 (48.0-80.0) % Lymph % (Auto) 15.5 L (16.0-40.0) % [place] % (Auto) 16.3 H (0.0-15.0) % Eos % (Auto) 1.3 (0.0-7.0) % Baso % (Auto) 0.3 (0.0-1.5) % Neut # (Auto) 6.0 H (1.4-5.7) K/uL Lymph # (Auto) 1.4 (0.6-2.4) K/uL [place]ill # (Auto) 1.5 H (0.0-0.8) K/uL Eos # (Auto) 0.1 (0.0-0.7) K/uL Baso # (Auto) 0.0 (0.0-0.1) K/uL Nucleated RBC % 0.0 /100WBC Nucleated RBCs # 0 K/uL Sodium (136-145) mmol/L Potassium (3.5-5.1) mmol/L Chloride (98-107) mmol/L Carbon Dioxide (21.0-32.0) mmol/L BUN (7.0-18.0) mg/dL Creatinine (0.6-1.0) mg/dL Est Cr Clr Drug Dosing mL/min Estimated GFR (MDRD) ml/min Glucose (74-106) mg/dL POC Glucose 185 H 205 H (70-99) mg/dL Calcium (8.5-10.1) mg/dL Magnesium (1.8-2.4) mg/dL Total Bilirubin (0.2-1.0) mg/dL AST (15-37) IU/L ALT (14-63) IU/L Alkaline Phosphatase (46-116) U/L Total Protein (6.4-8.2) g/dL Albumin (3.4-5.0) g/dL Globulin (2.6-4.0) g/dL Albumin/Globulin Ratio (0.9-1.6) 09/14/20 09/14/20 Range/Units 05:08 06:43 WBC (4.0-11.0) K/uL RBC (4.30-5.90) M/uL Hgb (12.0-16.0) g/dL Hct (36.0-46.0) % MCV (80.0-98.0) fL MCH (27.0-32.0) pg MCHC (31.0-37.0) g/dL RDW Std Deviation (28.0-62.0) fl RDW Coeff of Kaylin (11.0-15.0) % Plt Count (150-400) K/uL MPV (7.40-12.00) fL Neut % (Auto) (48.0-80.0) % Lymph % (Auto) (16.0-40.0) % [place]ill % (Auto) (0.0-15.0) % Eos % (Auto) (0.0-7.0) % Baso % (Auto) (0.0-1.5) % Neut # (Auto) (1.4-5.7) K/uL Lymph # (Auto) (0.6-2.4) K/uL [place]ill # (Auto) (0.0-0.8) K/uL Eos # (Auto) (0.0-0.7) K/uL Baso # (Auto) (0.0-0.1) K/uL Nucleated RBC % /100WBC Nucleated RBCs # K/uL Sodium 142 (136-145) mmol/L Potassium 3.4 L (3.5-5.1) mmol/L Chloride 107 (98-107) mmol/L Carbon Dioxide 26.9 (21.0-32.0) mmol/L BUN 11 (7.0-18.0) mg/dL Creatinine 0.6 (0.6-1.0) mg/dL Est Cr Clr Drug Dosing 71.03 mL/min Estimated GFR (MDRD) > 60.0 ml/min Glucose 102 (74-106) mg/dL POC Glucose 86 (70-99) mg/dL Calcium 7.4 L (8.5-10.1) mg/dL Magnesium 1.9 (1.8-2.4) mg/dL Total Bilirubin 0.3 (0.2-1.0) mg/dL AST 25 (15-37) IU/L ALT 23 (14-63) IU/L Alkaline Phosphatase 52 (46-116) U/L Total Protein 6.0 L (6.4-8.2) g/dL Albumin 2.8 L (3.4-5.0) g/dL Globulin 3.2 (2.6-4.0) g/dL Albumin/Globulin Ratio 0.9 (0.9-1.6) DAVID Results - Last 24 hrs: Microbiology 09/13/20 06:00 Aerobic Blood Culture - Preliminary Blood NO GROWTH AFTER 1 DAY Anaerobic Blood Culture - Preliminary NO GROWTH AFTER 1 DAY 09/13/20 05:38 Aerobic Blood Culture - Preliminary Blood NO GROWTH AFTER 1 DAY Anaerobic Blood Culture - Preliminary NO GROWTH AFTER 1 DAY Med Orders - Current: Current Medications Amlodipine Besylate (Amlodipine 5 Mg Tab) 5 mg PO BEDTIME [facility] Last Admin: 09/13/20 21:19 Dose: 5 mg Documented by: Dextrose/Water (50% Dextrose In Water 50 Ml Syringe) 50 ml IVPUSH ASDIRECTED PRN PRN Reason: Hypoglycemia Glucagon (Glucagon,Human Recombinant 1 Mg Vial) 1 mg IM ASDIRECTED PRN PRN Reason: Hypoglycemia Levofloxacin/Dextrose 750 mg/ (Premix) 150 mls @ 100 mls/hr IV Q24H [facility] Last Admin: 09/14/20 08:38 Dose: 100 mls/hr Documented by: Insulin Aspart (Insulin Aspart 100 Units/Ml 3 Ml Pen) 0 unit SUBCUT TIDAC [facility]; Protocol Last Admin: 09/14/20 11:53 Dose: 1 unit Documented by: Insulin Glargine (Insulin Glargine,Human Rec. Analog 100 Units/Ml 3 Ml Pen) 58 units SUBCUT BEDTIME [facility] Last Admin: 09/13/20 21:20 Dose: 58 units Documented by: Levothyroxine Sodium (Levothyroxine 25 Mcg Tab) 25 mcg PO QAM [facility] Last Admin: 09/14/20 08:53 Dose: 25 mcg Documented by: Metformin HCl (Metformin 500 Mg Tab.Er) 500 mg PO WITHMEALSANDBED [facility] Last Admin: 09/14/20 12:18 Dose: 500 mg Documented by: Metoprolol Succinate (Metoprolol Succinate 100 Mg Tab.Er) 100 mg PO QAM [facility] Last Admin: 09/14/20 08:55 Dose: 100 mg Documented by: Paroxetine HCl (Paroxetine 20 Mg Tab) 20 mg PO DAILY [facility] Last Admin: 09/14/20 08:53 Dose: 20 mg Documented by: Pregabalin (Pregabalin 50 Mg Cap) 100 mg PO WITHMEALSANDBED [facility] Last Admin: 09/14/20 12:19 Dose: 100 mg Documented by: Ramipril (Ramipril 10 Mg Cap) 20 mg PO DAILY [facility] Last Admin: 09/14/20 08:59 Dose: 20 mg Documented by: Simvastatin (Simvastatin 10 Mg Tab) 10 mg PO BEDTIME [facility] Last Admin: 09/13/20 21:19 Dose: 10 mg Documented by: Discontinued Medications Baclofen (Baclofen 10 Mg Tab) 5 mg PO ONETIME ONE Stop: 09/13/20 00:47 Last Admin: 09/13/20 01:05 Dose: 5 mg Documented by: Levofloxacin/Dextrose 750 mg/ (Premix) 150 mls @ 100 mls/hr IV Q24H [facility] Last Admin: 09/13/20 01:07 Dose: 100 mls/hr Documented by: Magnesium Sulfate 2 gm/ Premix 50 mls @ 12.5 mls/hr IV NOW STA Stop: 09/13/20 08:04 Last Admin: 09/13/20 04:32 Dose: 12.5 mls/hr Documented by: Sodium Chloride (Normal Saline) 1,000 mls @ 999 mls/hr IV .Bolus ONE Stop: 09/13/20 05:59 Last Admin: 09/13/20 05:13 Dose: 999 mls/hr Documented by: Sodium Chloride (Normal Saline) 1,000 mls @ 150 mls/hr IV ASDIRECTED [facility] Last Admin: 09/14/20 03:45 Dose: 150 mls/hr Documented by: Insulin Glargine (Insulin Glargine,Human Rec. Analog 100 Units/Ml 3 Ml Pen) 50 units SUBCUT ONETIME ONE Stop: 09/13/20 04:04 Last Admin: 09/13/20 04:26 Dose: 50 units Documented by: Iopamidol (Iopamidol 755 Mg/Ml 500 Ml Multipack Bottle) 100 ml IVPUSH ONETIME ONE Stop: 09/12/20 19:01 Last Admin: 09/12/20 19:01 Dose: 100 ml Documented by: Levofloxacin (Levofloxacin 250 Mg Tab) 250 mg PO Q24H ONE Stop: 09/14/20 09:22 Last Admin: 09/14/20 09:44 Dose: 250 mg Documented by: Potassium Chloride (Potassium Chloride 20 Meq Tab.Er) 40 meq PO ONETIME ONE Stop: 09/14/20 09:17 Last Admin: 09/14/20 09:45 Dose: 40 meq Documented by:
== END 2020-09-14 13:05 | disposition home or self-care (01) ==
LOC: MW.ED 17:47 → MW.MS 22:05
PROVIDERS: ADMIT Internal Medicine; ATTEND Internal Medicine
DX: R07.9 Chest pain, unspecified (principal); R09.02 Hypoxemia; M62.838 Other muscle spasm; E11.42 Type 2 diabetes mellitus with diabetic polyneuropathy; I10 Essential (primary) hypertension; E03.9 Hypothyroidism, unspecified; E78.00 Pure hypercholesterolemia, unspecified; M81.0 Age-related osteoporosis without current pathological fracture; Z88.8 Allergy status to other drugs, medicaments and biological substances; Z79.899 Other long term (current) drug therapy; Z98.890 Other specified postprocedural states; Z79.890 Hormone replacement therapy
CPT/HCPCS: 0240U; 36415; 36600; 71045; 71275; 80048; 80053; 81001; 82550; 82803; 82947; 83605; 83735; 83880; 84443; 84484; 85025; 85610; 87040; 87077; 87186; 93005; 99285; A9270; J1815; J1956; J3475; J7030; Q9967; 93010; 99217; 99218

== ENCOUNTER 2020-09-14 23:43 | Inpatient (IN) | payer MEDICARE, OTHER ==
[2020-09-15] MEDS ORDERED: Cefepime 2 GM in Premix Bag 1 BAG IV ONE ×2
[2020-09-15] MEDS ORDERED: Glucagon,Human Recombinant 1 MG Vial IM PRN (00:17)
[2020-09-15] MEDS ORDERED: 50% Dextrose in Water 50 ML Syringe IVPUSH PRN (00:17)
--- NOTE | 2020-09-15 00:22 | PCM.HP.2 ---
H&P History of Present Illness - General Date of Service: 09/15/20 Admit Problem/Dx: Admission Diagnosis/Problem Admission Diagnosis/Problem Bacteremia - History of Present Illness Initial Comments - Free Text/Narative: 75 yo female who was discharged this morning after admission for rigors, leukocytosis, and hypoxia. No obvious source was identified although Urine culture was obtain late after treatment with antibiotics. Blood cultures tonight grew out 1/4 gram negative rods. PAtient was called back in to continue IV antibiotics. She is feeling better but still reports fatigue. - Related Data Allergies/Adverse Reactions: Allergies Allergy/AdvReac Type Severity Reaction Status Date / Time cyclobenzaprine Allergy Other Verified 09/15/20 01:55 [From Flexeril] ketorolac Allergy Other Verified 09/15/20 01:55 meperidine [From Demerol] Allergy Change Verified 09/15/20 01:55 Mental Status nabumetone [From Relafen] Allergy nightmares Verified 09/15/20 01:55 Home Medications: Home Meds Liraglutide [Victoza] 1.2 mg SUBCUT QAM 09/27/14 [History] PARoxetine [Paxil] 20 mg PO DAILY 09/27/14 [History] Simvastatin [Zocor] 10 mg PO BEDTIME 09/27/14 [History] metFORMIN [Glucophage XR] 500 mg PO WITHMEALSANDBED 09/27/14 [History] ramipriL [Altace] 20 mg PO DAILY 09/27/14 [History] Insulin Degludec [Tresiba Flextouch U-100] 58 unit SQ BEDTIME 12/24/16 [History] Insulin Lispro [Humalog Kwikpen U-100] 17 unit SQ WITHBREAKFAST 12/24/16 [History] Metoprolol Succinate [Toprol XL] 100 mg PO QAM 12/24/16 [History] Pregabalin [Lyrica] 100 mg PO WITHMEALSANDBED 12/24/16 [History] Ibuprofen [Advil] 200 mg PO BID 06/26/17 [History] Multivitamin [Multivitamins] 1 tab PO DAILY 06/26/17 [History] amLODIPine Besylate [Amlodipine Besylate] 5 mg PO BEDTIME 06/26/17 [History] Cholecalciferol (Vitamin D3) [Vitamin D3] 400 unit PO DAILY 10/29/17 [History] Levothyroxine 25 mcg PO QAM 10/29/17 [History] Cinnamon Bark [Cinnamon] 1 mg PO DAILY 09/12/20 [History] Fish Oil/Borage/Flax/Om3,6,9 1 [[place] 3-6-9 Complex Softgel] 400 mg PO DAILY 09/12/20 [History] Insulin Lispro [Humalog Kwikpen U-100] 7 units SUBCUT WITHLUNCH 09/13/20 [History] Insulin Lispro [Humalog Kwikpen U-100] 15 unit SQ WITHDINNER 09/13/20 [History] Levofloxacin [Levaquin] 500 mg PO DAILY #5 tablet 09/14/20 [Rx] Past Medical History HEENT History: Reports: None, Other (See Below) Other HEENT History: uses reading glasses Cardiovascular History: Reports: High Cholesterol, Hypertension Respiratory History: Reports: None Gastrointestinal History: Reports: None Genitourinary History: Reports: None Other Genitourinary History: recent UTI WASHER HAND History: Reports: Musculoskeletal History: Reports: Arthritis, Fracture, Osteoporosis Other Musculoskeletal History: hx of fx wrist and foot x2 Neurological History: Reports: None Psychiatric History: Reports: Depression, Other (See Below) Other Psychiatric History: very Claustrophobic Endocrine/Metabolic History: Reports: Diabetes, Type II, Hypothyroidism, IDDM, Obesity/BMI 30+ Hematologic History: Reports: Anemia Immunologic History: Reports: None Oncologic (Cancer) History: Reports: None Dermatologic History: Reports: None - Infectious Disease History Infectious Disease History: Reports: Chicken Pox, Measles, Mumps - Past Surgical History Head Surgeries/Procedures: Reports: None HEENT Surgical History: Reports: LASIK, Tonsillectomy Cardiovascular Surgical History: Reports: None Respiratory Surgical History: Reports: None GI Surgical History: Reports: Appendectomy Female Surgical History: Reports: Breast Biopsy, Hysterectomy, Salpingo- Oophorectomy Neurological Surgical History: Reports: C-Spine, Laminectomy, Spinal Fusion Other Neurological Surgeries/Procedures: hardware in back and neck Musculoskeletal Surgical History: Reports: Carpal Tunnel, Shoulder Replacement, Other (See Below) Other Musculoskeletal Surgeries/Procedures:: bilateral TSA, tendon repair in foot Social & Family History - Family History Family Medical History: No Pertinent Family History HEENT: Reports: Cataract, Glaucoma Cardiac: Reports: High Cholesterol, Hypertension, Pacemaker Respiratory: Reports: COPD GI: Reports: None : Reports: None OBGYN: Reports: None Musculoskeletal: Reports: Arthritis, Osteoporosis Neurological: Reports: None Psychiatric: Reports: None Endocrine/Metabolic: Reports: Diabetes, type II Hematologic: Reports: Anemia Immunologic: Reports: None Dermatologic: Reports: None Oncologic: Reports: Breast, Other (See Below) Other Oncologic Family History: throat - Caffeine Use Caffeine Use: Reports: Soda, Tea H&P Review of Systems - Review of Systems: Review Of Systems: Comprehensive ROS is negative, except as noted in HPI. Exam - Exam Exam: See Below - Exam General: Alert, Oriented HEENT: Mucosa Moist & Cashion Lungs: Clear to Auscultation, Normal Respiratory Effort Cardiovascular: Regular Rate, Regular Rhythm GI/Abdominal Exam: Normal Bowel Sounds, Soft, Non-Tender Extremities: Non-Tender, No Pedal Edema Skin: Warm, Dry, Intact Neurological: No: Focal Deficit - Patient Data Result Diagrams: 09/15/20 05:30 09/15/20 05:30 Problem List Initiated/Reviewed/Updated: Yes Orders Last 24hrs: Active Orders 24 hr Category Date Time Status Patient Status [ADT] Routine ADT 09/14/20 23:58 Ordered Blood Glucose Check, Bedside [RC] TIDAC Care 09/15/20 00:17 Ordered Oxygen Therapy [RC] PRN Care 09/14/20 23:58 Ordered VTE/DVT Education [RC] PER UNIT ROUTINE Care 09/14/20 23:58 Ordered Vital Signs [RC] Q4H Care 09/14/20 23:58 Ordered [place] [employer] Diet [DIET] Diet 09/15/20 Breakfast Ordered Regular Diet [DIET] Diet 09/14/20 Breakfast Active CXR [Chest 1V Frontal] [CR] Routine Exams 09/15/20 00:00 Ordered BASIC METABOLIC PANEL,BMP [CHEM] AM Lab 09/15/20 05:11 Ordered CBC WITH AUTO DIFF [HEME] AM Lab 09/15/20 05:11 Ordered CULTURE BLOOD [BC] Stat Lab 09/15/20 00:00 Ordered CULTURE BLOOD [BC] Stat Lab 09/15/20 00:00 Ordered UA W/MICROSCOPIC [URIN] Routine Lab 09/14/20 23:58 Ordered Cefepime [Maxipime in D5W 2 GM/50 ML] 2 gm Med 09/15/20 00:00 Active Premix Bag 1 bag IV ONETIME Cefepime [Maxipime in D5W 2 GM/50 ML] 2 gm Med 09/14/20 23:45 Ordered Premix Bag 1 bag IV Q8H Dextrose 50% in Water Med 09/15/20 00:17 Ordered 50 ml IVPUSH ASDIRECTED PRN Glucagon,Human Recombinant [GlucaGen] Med 09/15/20 00:17 Ordered 1 mg IM ASDIRECTED PRN Insulin Aspart [NovoLOG] Med 09/15/20 07:30 Ordered See Protocol SUBCUT TIDAC Insulin Degludec [Tresiba Flextouch U-100] Med 09/15/20 21:00 Stop Req 58 unit SQ BEDTIME Insulin Glarg,Human.Rec.Analog [LantUS Solostar] Med 09/15/20 21:00 Ordered 58 units SUBCUT BEDTIME Levothyroxine Med 09/15/20 09:00 Ordered 25 mcg PO QAM Metoprolol Succinate [Toprol XL] Med 09/15/20 09:00 Ordered 100 mg PO QAM PARoxetine [Paxil] Med 09/15/20 09:00 Ordered 20 mg PO DAILY Pregabalin Med 09/15/20 08:00 Ordered 100 mg PO WITHMEALSANDBED Simvastatin [Zocor] Med 09/15/20 21:00 Ordered 10 mg PO BEDTIME amLODIPine [Norvasc] Med 09/15/20 21:00 Ordered 5 mg PO BEDTIME ramipriL [Altace] Med 09/15/20 09:00 Ordered 20 mg PO DAILY Blood Culture x2 Reflex Set [OM.PC] Stat Oth 09/14/20 23:58 Ordered Resuscitation Status Routine Resus Stat 09/14/20 23:58 Ordered Medication Orders Amlodipine Besylate (Amlodipine 5 Mg Tab) 5 mg PO BEDTIME [facility] Cefepime HCl 2 gm/ Premix 50 mls @ 100 mls/hr IV Q8H [facility] Cefepime HCl 2 gm/ Premix 50 mls @ 100 mls/hr IV ONETIME ONE Stop: 09/15/20 00:29 Levothyroxine Sodium (Levothyroxine 25 Mcg Tab) 25 mcg PO QAM [facility] Metoprolol Succinate (Metoprolol Succinate 100 Mg Tab.Er) 100 mg PO QAM [facility] Non-Formulary Medication (Insulin Degludec [Tresiba Flextouch U-100]) 58 unit SQ BEDTIME [facility] Non-Formulary Medication (Pregabalin) 100 mg PO WITHMEALSANDBED [facility] Paroxetine HCl (Paroxetine 20 Mg Tab) 20 mg PO DAILY [facility] Ramipril (Ramipril 10 Mg Cap) 20 mg PO DAILY [facility] Simvastatin (Simvastatin 10 Mg Tab) 10 mg PO BEDTIME [facility] Assessment/Plan Comment:: 75 yo female admitted for gram negative suma bacteremia, no source identified, Will treat with IV cefepime, and await culture sensitives.
--- NOTE | 2020-09-15 01:34 | CR ---
Indication: Bacteremia Technique: Chest 1 view Comparison: Chest x-ray 09/12/2020 Findings/Impression: Cardiovascular and mediastinum: Borderline heart size with aortic tortuosity. Lungs and pleural space: No pleural effusion or pneumothorax. Mild discoid atelectasis lung bases. Bones and soft tissues: Bilateral shoulder replacements. Bilateral lower cervical spine surgery. Dictated by Yosvany Phillips MD @ 09/15/2020 1:31:[address] Yosvany Phillips @ Sep 15 2020 1:31AM
[2020-09-15 05:59] LABS: BLOOD UREA NITROGEN,BUN 11 mg/dL (7.0-18.0); CARBON DIOXIDE,CO2 25.9 mmol/L (21.0-32.0); CHLORIDE,CL 107 mmol/L (98-107); GLUCOSE RANDOM 142 mg/dL (74-106); POTASSIUM,K 3.9 mmol/L (3.5-5.1); SODIUM,NA 142 mmol/L (136-145)
[2020-09-15] MEDS: Levothyroxine 25 MCG Tab PO SCH (06:35)
[2020-09-15] MEDS: Pregabalin 50 MG Cap PO SCH ×4 (08:49→21:04)
[2020-09-15] MEDS: Metoprolol Succinate 100 MG Tab.ER PO SCH (08:50)
[2020-09-15] MEDS: PARoxetine 20 MG Tab PO SCH (08:50)
[2020-09-15] MEDS: Insulin Aspart 100 Units/ML 3 ML Pen SUBCUT SCH ×3 (08:56→18:37)
[2020-09-15] MEDS: Cefepime 2 GM in Premix Bag 1 BAG IV SCH ×3 (09:06→17:24)
--- NOTE | 2020-09-15 11:33 | CT ---
Indication: Bacteremia, no sores, rule out abscess Technique: Volumetric multidetector CT images of the facial bones were obtained without the administration of IV contrast. Comparison: None available. Findings: The partially visualized brain is normal in attenuation without evidence of midline shift or fluid collection. The paranasal sinuses are clear without evidence of air-fluid level. The bony orbits are grossly intact. There is no significant periorbital soft tissue swelling. The zygomatic arches are grossly intact. The bilateral maxillae are intact. The pterygoid plates are grossly intact. The nasal bones and anterior nasal spine are intact without displaced fracture. The mandible is grossly well located. The partially visualized cervical spine is grossly intact without displaced fracture. Impression: The visualized maxillary and mandibular teeth are grossly intact without evidence of significant periodontal disease. Dental amalgam is seen throughout the teeth. Otherwise no evidence of facial bony injury. No obvious facial inflammatory changes are appreciated. Please note that all CT scans at this facility use dose modulation, iterative reconstruction, and/or weight-based dosing when appropriate to reduce radiation dose to as low as reasonably achievable. Dictated by Tai Lewis MD @ 09/15/2020 11:31:[address] Tai Lewis @ Sep 15 2020 11:31AM
--- NOTE | 2020-09-15 12:09 | CT ---
INDICATION: Bacteremia. TECHNIQUE: CT abdomen and pelvis without contrast. COMPARISON: None. FINDINGS: Lower chest: Coronary artery atherosclerosis is present. Liver: Normal in size and attenuation. No suspicious masses. Gallbladder and bile ducts: Few tiny gallbladder stones. Otherwise unremarkable. Pancreas: Unremarkable. No mass or inflammation. Spleen: Normal in size. No masses. Adrenal glands: Normal in size. No nodules. Kidneys: Normal in size. No suspicious masses, stones, or hydronephrosis. GI tract: Unremarkable. Normal in caliber. No sign of mass or inflammation. Vasculature: Aortic atherosclerosis without aneurysm. Lymph nodes: No lymphadenopathy. Abdominal wall/Omentum/Peritoneum: Unremarkable. No sign of mass or infiltration. No free air or significant free fluid. Pelvis: Unremarkable. No pelvic masses. Bones: There is posterior hardware fusion L3-S1. Otherwise unremarkable. IMPRESSION: No acute or significant findings present. No finding to explain bacteremia. Please note that all CT scans at this facility use dose modulation, iterative reconstruction, and/or weight-based dosing when appropriate to reduce radiation dose to as low as reasonably achievable. Dictated by Nico Mills MD @ 09/15/2020 12:08:[address] Nico Mills @ Sep 15 2020 12:08PM
--- NOTE | 2020-09-15 12:36 | PCM.PN ---
- General Info Date of Service: 09/15/20 - Review of Systems Systems Review Comment:: feeling better, no fevers, no chills - Patient Data Vitals - Most Recent: Last Vital Signs Temp 36.0 C L 09/15/20 11:44 Pulse 71 09/15/20 11:44 Resp 16 09/15/20 11:44 BP 152/72 H 09/15/20 11:44 Pulse Ox 97 09/15/20 11:44 Weight - Most Recent: 89.896 kg I&O - Last 24 Hours: Intake & Output 09/14/20 09/15/20 09/15/20 22:59 06:59 14:59 Intake Total 200 Output Total 1600 Balance -1400 Lab Results Last 24 Hours: Laboratory Results - last 24 hr 09/15/20 09/15/20 09/15/20 Range/Units 01:15 01:30 05:30 WBC 7.28 (4.0-11.0) K/uL RBC 3.81 L (4.30-5.90) M/uL Hgb 10.9 L (12.0-16.0) g/dL Hct 33.7 L (36.0-46.0) % MCV 88.5 (80.0-98.0) fL MCH 28.6 (27.0-32.0) pg MCHC 32.3 (31.0-37.0) g/dL RDW Std Deviation 48.6 (28.0-62.0) fl RDW Coeff of Kaylin 15 (11.0-15.0) % Plt Count 175 (150-400) K/uL MPV 9.70 (7.40-12.00) fL Neut % (Auto) 56.7 (48.0-80.0) % Lymph % (Auto) 20.1 (16.0-40.0) % [place] % (Auto) 19.1 H (0.0-15.0) % Eos % (Auto) 3.7 (0.0-7.0) % Baso % (Auto) 0.4 (0.0-1.5) % Neut # (Auto) 4.1 (1.4-5.7) K/uL Lymph # (Auto) 1.5 (0.6-2.4) K/uL [place] # (Auto) 1.4 H (0.0-0.8) K/uL Eos # (Auto) 0.3 (0.0-0.7) K/uL Baso # (Auto) 0.0 (0.0-0.1) K/uL Nucleated RBC % 0.0 /100WBC Nucleated RBCs # 0 K/uL Sodium (136-145) mmol/L Potassium (3.5-5.1) mmol/L Chloride (98-107) mmol/L Carbon Dioxide (21.0-32.0) mmol/L BUN (7.0-18.0) mg/dL Creatinine (0.6-1.0) mg/dL Est Cr Clr Drug Dosing mL/min Estimated GFR (MDRD) ml/min Glucose (74-106) mg/dL POC Glucose 106 H (70-99) mg/dL Calcium (8.5-10.1) mg/dL Urine Color YELLOW Urine Appearance CLEAR Urine pH 6.5 (5.0-8.0) Ur Specific [place] 1.010 (1.001-1.035) Urine Protein NEGATIVE (NEGATIVE) mg/dL Urine Glucose (UA) NEGATIVE (NEGATIVE) mg/dL Urine Ketones NEGATIVE (NEGATIVE) mg/dL Urine Occult Blood NEGATIVE (NEGATIVE) Urine Nitrite NEGATIVE (NEGATIVE) Urine Bilirubin NEGATIVE (NEGATIVE) Urine Urobilinogen 0.2 (<2.0) EU/dL Ur Leukocyte Esterase NEGATIVE (NEGATIVE) Urine RBC 0-2 (0-2/HPF) Urine WBC 0-3 (0-5/HPF) Ur Epithelial Cells RARE (NONE-FEW) Urine Bacteria RARE (NEGATIVE) 09/15/20 09/15/20 09/15/20 Range/Units 05:30 06:49 11:49 WBC (4.0-11.0) K/uL RBC (4.30-5.90) M/uL Hgb (12.0-16.0) g/dL Hct (36.0-46.0) % MCV (80.0-98.0) fL MCH (27.0-32.0) pg MCHC (31.0-37.0) g/dL RDW Std Deviation (28.0-62.0) fl RDW Coeff of Kaylin (11.0-15.0) % Plt Count (150-400) K/uL MPV (7.40-12.00) fL Neut % (Auto) (48.0-80.0) % Lymph % (Auto) (16.0-40.0) % [place] % (Auto) (0.0-15.0) % Eos % (Auto) (0.0-7.0) % Baso % (Auto) (0.0-1.5) % Neut # (Auto) (1.4-5.7) K/uL Lymph # (Auto) (0.6-2.4) K/uL [place] # (Auto) (0.0-0.8) K/uL Eos # (Auto) (0.0-0.7) K/uL Baso # (Auto) (0.0-0.1) K/uL Nucleated RBC % /100WBC Nucleated RBCs # K/uL Sodium 142 (136-145) mmol/L Potassium 3.9 (3.5-5.1) mmol/L Chloride 107 (98-107) mmol/L Carbon Dioxide 25.9 (21.0-32.0) mmol/L BUN 11 (7.0-18.0) mg/dL Creatinine 0.7 (0.6-1.0) mg/dL Est Cr Clr Drug Dosing 60.89 mL/min Estimated GFR (MDRD) > 60.0 ml/min Glucose 142 H (74-106) mg/dL POC Glucose 143 H 164 H (70-99) mg/dL Calcium 8.3 L (8.5-10.1) mg/dL Urine Color Urine Appearance Urine pH (5.0-8.0) Ur Specific [place] (1.001-1.035) Urine Protein (NEGATIVE) mg/dL Urine Glucose (UA) (NEGATIVE) mg/dL Urine Ketones (NEGATIVE) mg/dL Urine Occult Blood (NEGATIVE) Urine Nitrite (NEGATIVE) Urine Bilirubin (NEGATIVE) Urine Urobilinogen (<2.0) EU/dL Ur Leukocyte Esterase (NEGATIVE) Urine RBC (0-2/HPF) Urine WBC (0-5/HPF) Ur Epithelial Cells (NONE-FEW) Urine Bacteria (NEGATIVE) Med Orders - Current: Current Medications Amlodipine Besylate (Amlodipine 5 Mg Tab) 5 mg PO BEDTIME [facility] Dextrose/Water (50% Dextrose In Water 50 Ml Syringe) 50 ml IVPUSH ASDIRECTED PRN PRN Reason: Hypoglycemia Glucagon (Glucagon,Human Recombinant 1 Mg Vial) 1 mg IM ASDIRECTED PRN PRN Reason: Hypoglycemia Cefepime HCl 2 gm/ Premix 50 mls @ 100 mls/hr IV Q8H [facility] Last Admin: 09/15/20 09:06 Dose: 100 mls/hr Documented by: Insulin Aspart (Insulin Aspart 100 Units/Ml 3 Ml Pen) 0 unit SUBCUT TIDAC [facility]; Protocol Last Admin: 09/15/20 12:17 Dose: 2 units Documented by: Insulin Glargine (Insulin Glargine,Human Rec. Analog 100 Units/Ml 3 Ml Pen) 58 units SUBCUT BEDTIME [facility] Levothyroxine Sodium (Levothyroxine 25 Mcg Tab) 25 mcg PO DAILY@0700 [facility] Last Admin: 09/15/20 06:35 Dose: 25 mcg Documented by: Metoprolol Succinate (Metoprolol Succinate 100 Mg Tab.Er) 100 mg PO QAM [facility] Last Admin: 09/15/20 08:50 Dose: 100 mg Documented by: Paroxetine HCl (Paroxetine 20 Mg Tab) 20 mg PO DAILY [facility] Last Admin: 09/15/20 08:50 Dose: 20 mg Documented by: Pregabalin (Pregabalin 50 Mg Cap) 100 mg PO WITHMEALSANDBED [facility] Last Admin: 09/15/20 12:17 Dose: 100 mg Documented by: Ramipril (Ramipril 10 Mg Cap) 20 mg PO DAILY [facility] Last Admin: 09/15/20 08:50 Dose: 20 mg Documented by: Simvastatin (Simvastatin 10 Mg Tab) 10 mg PO BEDTIME [facility] Discontinued Medications Cefepime HCl 2 gm/ Premix 50 mls @ 100 mls/hr IV ONETIME ONE Stop: 09/15/20 00:29 Last Admin: 09/15/20 00:51 Dose: 100 mls/hr Documented by: Non-Formulary Medication (Insulin Degludec [Tresiba Flextouch U-100]) 58 unit SQ BEDTIME [facility] - Exam General: Alert, Oriented Neck: Supple Lungs: Clear to Auscultation, Normal Respiratory Effort Cardiovascular: Regular Rate, Regular Rhythm GI/Abdominal Exam: Soft, Non-Tender, No Distention Extremities: Non-Tender, No Pedal Edema Skin: Warm, Dry, Intact Neurological: No New Focal Deficit - Patient Data Lab Results Last 24 hrs: Laboratory Results - last 24 hr 09/15/20 09/15/20 09/15/20 Range/Units 01:15 01:30 05:30 WBC 7.28 (4.0-11.0) K/uL RBC 3.81 L (4.30-5.90) M/uL Hgb 10.9 L (12.0-16.0) g/dL Hct 33.7 L (36.0-46.0) % MCV 88.5 (80.0-98.0) fL MCH 28.6 (27.0-32.0) pg MCHC 32.3 (31.0-37.0) g/dL RDW Std Deviation 48.6 (28.0-62.0) fl RDW Coeff of Kaylin 15 (11.0-15.0) % Plt Count 175 (150-400) K/uL MPV 9.70 (7.40-12.00) fL Neut % (Auto) 56.7 (48.0-80.0) % Lymph % (Auto) 20.1 (16.0-40.0) % [place] % (Auto) 19.1 H (0.0-15.0) % Eos % (Auto) 3.7 (0.0-7.0) % Baso % (Auto) 0.4 (0.0-1.5) % Neut # (Auto) 4.1 (1.4-5.7) K/uL Lymph # (Auto) 1.5 (0.6-2.4) K/uL [place] # (Auto) 1.4 H (0.0-0.8) K/uL Eos # (Auto) 0.3 (0.0-0.7) K/uL Baso # (Auto) 0.0 (0.0-0.1) K/uL Nucleated RBC % 0.0 /100WBC Nucleated RBCs # 0 K/uL Sodium (136-145) mmol/L Potassium (3.5-5.1) mmol/L Chloride (98-107) mmol/L Carbon Dioxide (21.0-32.0) mmol/L BUN (7.0-18.0) mg/dL Creatinine (0.6-1.0) mg/dL Est Cr Clr Drug Dosing mL/min Estimated GFR (MDRD) ml/min Glucose (74-106) mg/dL POC Glucose 106 H (70-99) mg/dL Calcium (8.5-10.1) mg/dL Urine Color YELLOW Urine Appearance CLEAR Urine pH 6.5 (5.0-8.0) Ur Specific [place] 1.010 (1.001-1.035) Urine Protein NEGATIVE (NEGATIVE) mg/dL Urine Glucose (UA) NEGATIVE (NEGATIVE) mg/dL Urine Ketones NEGATIVE (NEGATIVE) mg/dL Urine Occult Blood NEGATIVE (NEGATIVE) Urine Nitrite NEGATIVE (NEGATIVE) Urine Bilirubin NEGATIVE (NEGATIVE) Urine Urobilinogen 0.2 (<2.0) EU/dL Ur Leukocyte Esterase NEGATIVE (NEGATIVE) Urine RBC 0-2 (0-2/HPF) Urine WBC 0-3 (0-5/HPF) Ur Epithelial Cells RARE (NONE-FEW) Urine Bacteria RARE (NEGATIVE) 09/15/20 09/15/20 09/15/20 Range/Units 05:30 06:49 11:49 WBC (4.0-11.0) K/uL RBC (4.30-5.90) M/uL Hgb (12.0-16.0) g/dL Hct (36.0-46.0) % MCV (80.0-98.0) fL MCH (27.0-32.0) pg MCHC (31.0-37.0) g/dL RDW Std Deviation (28.0-62.0) fl RDW Coeff of Kaylin (11.0-15.0) % Plt Count (150-400) K/uL MPV (7.40-12.00) fL Neut % (Auto) (48.0-80.0) % Lymph % (Auto) (16.0-40.0) % [place] % (Auto) (0.0-15.0) % Eos % (Auto) (0.0-7.0) % Baso % (Auto) (0.0-1.5) % Neut # (Auto) (1.4-5.7) K/uL Lymph # (Auto) (0.6-2.4) K/uL [place] # (Auto) (0.0-0.8) K/uL Eos # (Auto) (0.0-0.7) K/uL Baso # (Auto) (0.0-0.1) K/uL Nucleated RBC % /100WBC Nucleated RBCs # K/uL Sodium 142 (136-145) mmol/L Potassium 3.9 (3.5-5.1) mmol/L Chloride 107 (98-107) mmol/L Carbon Dioxide 25.9 (21.0-32.0) mmol/L BUN 11 (7.0-18.0) mg/dL Creatinine 0.7 (0.6-1.0) mg/dL Est Cr Clr Drug Dosing 60.89 mL/min Estimated GFR (MDRD) > 60.0 ml/min Glucose 142 H (74-106) mg/dL POC Glucose 143 H 164 H (70-99) mg/dL Calcium 8.3 L (8.5-10.1) mg/dL Urine Color Urine Appearance Urine pH (5.0-8.0) Ur Specific [place] (1.001-1.035) Urine Protein (NEGATIVE) mg/dL Urine Glucose (UA) (NEGATIVE) mg/dL Urine Ketones (NEGATIVE) mg/dL Urine Occult Blood (NEGATIVE) Urine Nitrite (NEGATIVE) Urine Bilirubin (NEGATIVE) Urine Urobilinogen (<2.0) EU/dL Ur Leukocyte Esterase (NEGATIVE) Urine RBC (0-2/HPF) Urine WBC (0-5/HPF) Ur Epithelial Cells (NONE-FEW) Urine Bacteria (NEGATIVE) Result Diagrams: 09/15/20 05:30 09/15/20 05:30 Sepsis Event Note - Evaluation Sepsis Screening Result: No Definite Risk - Focused Exam Vital Signs: Vital Signs Temp Pulse Pulse Resp BP BP Pulse Ox 09/15/20 11:44 36.0 C L 71 16 152/72 H 97 09/15/20 08:50 75 139/69 09/15/20 07:00 36.1 C 71 16 118/67 97 09/15/20 04:00 36.2 C 75 17 134/63 91 L - Problem List Review Problem List Initiated/Reviewed/Updated: Yes - My Orders Last 24 Hours: My Active Orders 09/14/20 23:58 Patient Status [ADT] Routine Oxygen Therapy [RC] PRN VTE/DVT Education [RC] PER UNIT ROUTINE Vital Signs [RC] Q4H Blood Culture x2 Reflex Set [OM.PC] Stat Resuscitation Status Routine 09/15/20 00:17 Blood Glucose Check, Bedside [RC] TIDAC Dextrose 50% in Water 50 ml IVPUSH ASDIRECTED PRN Glucagon,Human Recombinant [GlucaGen] 1 mg IM ASDIRECTED PRN 09/15/20 00:20 CULTURE BLOOD [BC] Stat 09/15/20 00:25 CULTURE BLOOD [BC] Stat 09/15/20 Breakfast [employer] Diet [DIET] 09/15/20 07:00 Levothyroxine 25 mcg PO DAILY@0700 09/15/20 07:30 Insulin Aspart [NovoLOG] See Protocol SUBCUT TIDAC 09/15/20 08:00 Pregabalin [Lyrica] 100 mg PO WITHMEALSANDBED 09/15/20 09:00 Cefepime [Maxipime in D5W 2 GM/50 ML] 2 gm Premix Bag 1 bag IV Q8H Metoprolol Succinate [Toprol XL] 100 mg PO QAM PARoxetine [Paxil] 20 mg PO DAILY ramipriL [Altace] 20 mg PO DAILY 09/15/20 21:00 Insulin Glarg,Human.Rec.Analog [LantUS Solostar] 58 units SUBCUT BEDTIME Simvastatin [Zocor] 10 mg PO BEDTIME amLODIPine [Norvasc] 5 mg PO BEDTIME - Plan Plan:: 75 yo female admitted for gram negative suma bacteremia, no source identified, We will continue cefepime. CT face and abdomen pelvis negative. Will await sensitivities.
[2020-09-15] MEDS ORDERED: Non-Formulary Medication 1 Each (Insulin Degludec [Tresiba Flextouch U-100] 100 UNIT/ML Pe SQ SCH (21:00)
[2020-09-15] MEDS: amLODIPine 5 MG Tab PO SCH (21:03)
[2020-09-15] MEDS: Simvastatin 10 MG Tab PO SCH (21:03)
[2020-09-15] MEDS: Insulin Glargine,Human Rec. Analog 100 Units/ML 3 ML Pen SUBCUT SCH (21:05)
[2020-09-16] MEDS: Cefepime 2 GM in Premix Bag 1 BAG IV SCH ×3 (00:34→17:10)
[2020-09-16] MEDS: Levothyroxine 25 MCG Tab PO SCH (06:49)
[2020-09-16] MEDS: Insulin Aspart 100 Units/ML 3 ML Pen SUBCUT SCH ×3 (09:38→17:44)
[2020-09-16] MEDS: Metoprolol Succinate 100 MG Tab.ER PO SCH (09:40)
[2020-09-16] MEDS: Pregabalin 50 MG Cap PO SCH ×4 (09:41→21:01)
[2020-09-16] MEDS: PARoxetine 20 MG Tab PO SCH (09:41)
--- NOTE | 2020-09-16 09:51 | PCM.PN ---
- General Info Date of Service: 09/16/20 - Review of Systems Systems Review Comment:: no complaints, no fevers, no tremors. - Patient Data Vitals - Most Recent: Last Vital Signs Temp 35.7 C L 09/16/20 08:00 Pulse 68 09/16/20 09:40 Resp 22 H 09/16/20 08:00 BP 133/60 09/16/20 09:40 Pulse Ox 93 L 09/16/20 08:00 Weight - Most Recent: 89.896 kg I&O - Last 24 Hours: Intake & Output 09/15/20 09/16/20 09/16/20 22:59 06:59 14:59 Intake Total 470 750 Output Total 1850 800 Balance -1380 -50 Lab Results Last 24 Hours: Laboratory Results - last 24 hr 09/15/20 09/15/20 09/15/20 Range/Units 11:49 17:27 21:04 POC Glucose 164 H 237 H 268 H (70-99) mg/dL 09/16/20 Range/Units 06:46 POC Glucose 191 H (70-99) mg/dL Jt Results Last 24 Hours: Microbiology 09/15/20 00:25 Aerobic Blood Culture - Preliminary Blood - Venous - Lab Draw NO GROWTH AFTER 1 DAY Anaerobic Blood Culture - Preliminary NO GROWTH AFTER 1 DAY 09/15/20 00:20 Aerobic Blood Culture - Preliminary Blood - Venous NO GROWTH AFTER 1 DAY Anaerobic Blood Culture - Preliminary NO GROWTH AFTER 1 DAY Med Orders - Current: Current Medications Amlodipine Besylate (Amlodipine 5 Mg Tab) 5 mg PO BEDTIME [facility] Last Admin: 09/15/20 21:03 Dose: 5 mg Documented by: Dextrose/Water (50% Dextrose In Water 50 Ml Syringe) 50 ml IVPUSH ASDIRECTED PRN PRN Reason: Hypoglycemia Glucagon (Glucagon,Human Recombinant 1 Mg Vial) 1 mg IM ASDIRECTED PRN PRN Reason: Hypoglycemia Cefepime HCl 2 gm/ Premix 50 mls @ 100 mls/hr IV Q8H [facility] Last Admin: 09/16/20 09:38 Dose: 100 mls/hr Documented by: Insulin Aspart (Insulin Aspart 100 Units/Ml 3 Ml Pen) 0 unit SUBCUT TIDAC [facility]; Protocol Last Admin: 09/16/20 09:38 Dose: 2 units Documented by: Insulin Glargine (Insulin Glargine,Human Rec. Analog 100 Units/Ml 3 Ml Pen) 58 units SUBCUT BEDTIME [facility] Last Admin: 09/15/20 21:05 Dose: 58 units Documented by: Levothyroxine Sodium (Levothyroxine 25 Mcg Tab) 25 mcg PO DAILY@0700 [facility] Last Admin: 09/16/20 06:49 Dose: 25 mcg Documented by: Metoprolol Succinate (Metoprolol Succinate 100 Mg Tab.Er) 100 mg PO QAM [facility] Last Admin: 09/16/20 09:40 Dose: 100 mg Documented by: Paroxetine HCl (Paroxetine 20 Mg Tab) 20 mg PO DAILY [facility] Last Admin: 09/16/20 09:41 Dose: 20 mg Documented by: Pregabalin (Pregabalin 50 Mg Cap) 100 mg PO WITHMEALSANDBED [facility] Last Admin: 09/16/20 09:41 Dose: 100 mg Documented by: Ramipril (Ramipril 10 Mg Cap) 20 mg PO DAILY [facility] Last Admin: 09/16/20 09:40 Dose: 20 mg Documented by: Simvastatin (Simvastatin 10 Mg Tab) 10 mg PO BEDTIME [facility] Last Admin: 09/15/20 21:03 Dose: 10 mg Documented by: Discontinued Medications Cefepime HCl 2 gm/ Premix 50 mls @ 100 mls/hr IV ONETIME ONE Stop: 09/15/20 00:29 Last Admin: 09/15/20 00:51 Dose: 100 mls/hr Documented by: Non-Formulary Medication (Insulin Degludec [Tresiba Flextouch U-100]) 58 unit SQ BEDTIME [facility] - Exam General: Alert, Oriented Neck: Supple Lungs: Clear to Auscultation, Normal Respiratory Effort Cardiovascular: Regular Rate, Regular Rhythm GI/Abdominal Exam: Soft, Non-Tender, No Distention Extremities: Non-Tender, No Pedal Edema Skin: Warm, Dry, Intact Neurological: No New Focal Deficit - Patient Data Lab Results Last 24 hrs: Laboratory Results - last 24 hr 09/15/20 09/15/20 09/15/20 Range/Units 11:49 17:27 21:04 POC Glucose 164 H 237 H 268 H (70-99) mg/dL 09/16/20 Range/Units 06:46 POC Glucose 191 H (70-99) mg/dL Result Diagrams: 09/15/20 05:30 09/15/20 05:30 Jt Results Last 24 hrs: Microbiology 09/15/20 00:25 Aerobic Blood Culture - Preliminary Blood - Venous - Lab Draw NO GROWTH AFTER 1 DAY Anaerobic Blood Culture - Preliminary NO GROWTH AFTER 1 DAY 09/15/20 00:20 Aerobic Blood Culture - Preliminary Blood - Venous NO GROWTH AFTER 1 DAY Anaerobic Blood Culture - Preliminary NO GROWTH AFTER 1 DAY Sepsis Event Note - Evaluation Sepsis Screening Result: No Definite Risk - Focused Exam Vital Signs: Vital Signs Temp Pulse Pulse Resp BP BP Pulse Ox 09/16/20 09:40 68 133/60 09/16/20 08:00 35.7 C L 73 22 H 130/69 93 L 09/16/20 05:19 35.8 C L 68 16 133/60 93 L 09/16/20 00:55 36.3 C 09/16/20 00:00 35.9 C L 98 16 147/68 H 92 L - Problem List Review Problem List Initiated/Reviewed/Updated: Yes - My Orders Last 24 Hours: My Active Orders 09/15/20 09:00 Cefepime [Maxipime in D5W 2 GM/50 ML] 2 gm Premix Bag 1 bag IV Q8H Metoprolol Succinate [Toprol XL] 100 mg PO QAM PARoxetine [Paxil] 20 mg PO DAILY ramipriL [Altace] 20 mg PO DAILY 09/15/20 21:00 Insulin Glarg,Human.Rec.Analog [LantUS Solostar] 58 units SUBCUT BEDTIME Simvastatin [Zocor] 10 mg PO BEDTIME amLODIPine [Norvasc] 5 mg PO BEDTIME 09/16/20 13:00 BASIC METABOLIC PANEL,BMP [CHEM] Routine CBC WITH AUTO DIFF [HEME] Routine 09/17/20 05:11 BASIC METABOLIC PANEL,BMP [CHEM] AM CBC WITH AUTO DIFF [HEME] AM - Plan Plan:: 75 yo female admitted for gram negative [place]a bacteremia Bacteremia: no source identified, Will continue IV cefepime, and await culture sensitives.
[2020-09-16 13:50] LABS: CARBON DIOXIDE,CO2 26.4 mmol/L (21.0-32.0); POTASSIUM,K 4.4 mmol/L (3.5-5.1)
[2020-09-16] MEDS: amLODIPine 5 MG Tab PO SCH (21:02)
[2020-09-16] MEDS: Simvastatin 10 MG Tab PO SCH (21:02)
[2020-09-16] MEDS: Insulin Glargine,Human Rec. Analog 100 Units/ML 3 ML Pen SUBCUT SCH (21:03)
[2020-09-17] MEDS: Cefepime 2 GM in Premix Bag 1 BAG IV SCH ×3 (05:40→21:32)
[2020-09-17] MEDS: Levothyroxine 25 MCG Tab PO SCH (06:09)
[2020-09-17 07:44] LABS: BLOOD UREA NITROGEN,BUN 18 mg/dL (7.0-18.0); CARBON DIOXIDE,CO2 28.7 mmol/L (21.0-32.0); CHLORIDE,CL 104 mmol/L (98-107); GLUCOSE RANDOM 166 mg/dL (74-106); POTASSIUM,K 3.8 mmol/L (3.5-5.1); SODIUM,NA 143 mmol/L (136-145)
--- NOTE | 2020-09-17 09:41 | PCM.PN ---
- General Info Date of Service: 09/17/20 - Review of Systems Systems Review Comment:: continues to feel better everyday - Patient Data Vitals - Most Recent: Last Vital Signs Temp 36.1 C 09/17/20 05:12 Pulse 70 09/17/20 05:12 Resp 16 09/17/20 05:12 BP 149/70 H 09/17/20 05:12 Pulse Ox 93 L 09/17/20 05:12 Weight - Most Recent: 89.896 kg I&O - Last 24 Hours: Intake & Output 09/16/20 09/17/20 09/17/20 22:59 06:59 14:59 Intake Total 670 300 Output Total 860 500 Balance -190 -200 Lab Results Last 24 Hours: Laboratory Results - last 24 hr 09/16/20 09/16/20 09/16/20 Range/Units 11:18 13:23 13:23 WBC 8.25 (4.0-11.0) K/uL RBC 4.16 L (4.30-5.90) M/uL Hgb 12.0 (12.0-16.0) g/dL Hct 36.8 (36.0-46.0) % MCV 88.5 (80.0-98.0) fL MCH 28.8 (27.0-32.0) pg MCHC 32.6 (31.0-37.0) g/dL RDW Std Deviation 47.3 (28.0-62.0) fl RDW Coeff of Kaylin 15 (11.0-15.0) % Plt Count 238 (150-400) K/uL MPV 10.10 (7.40-12.00) fL Neut % (Auto) 55.7 (48.0-80.0) % Lymph % (Auto) 28.2 (16.0-40.0) % [place] % (Auto) 12.1 (0.0-15.0) % Eos % (Auto) 3.4 (0.0-7.0) % Baso % (Auto) 0.6 (0.0-1.5) % Neut # (Auto) 4.6 (1.4-5.7) K/uL Lymph # (Auto) 2.3 (0.6-2.4) K/uL [place] # (Auto) 1.0 H (0.0-0.8) K/uL Eos # (Auto) 0.3 (0.0-0.7) K/uL Baso # (Auto) 0.1 (0.0-0.1) K/uL Nucleated RBC % 0.0 /100WBC Nucleated RBCs # 0 K/uL Sodium 134 L (136-145) mmol/L Potassium 4.4 (3.5-5.1) mmol/L Chloride 99 (98-107) mmol/L Carbon Dioxide 26.4 (21.0-32.0) mmol/L BUN 16 (7.0-18.0) mg/dL Creatinine 1.0 (0.6-1.0) mg/dL Est Cr Clr Drug Dosing 42.62 mL/min Estimated GFR (MDRD) 54.2 ml/min Glucose 399 H (74-106) mg/dL POC Glucose 337 H (70-99) mg/dL Calcium 8.9 (8.5-10.1) mg/dL 09/16/20 09/16/20 09/17/20 Range/Units 16:38 20:59 05:47 WBC (4.0-11.0) K/uL RBC (4.30-5.90) M/uL Hgb (12.0-16.0) g/dL Hct (36.0-46.0) % MCV (80.0-98.0) fL MCH (27.0-32.0) pg MCHC (31.0-37.0) g/dL RDW Std Deviation (28.0-62.0) fl RDW Coeff of Kaylin (11.0-15.0) % Plt Count (150-400) K/uL MPV (7.40-12.00) fL Neut % (Auto) (48.0-80.0) % Lymph % (Auto) (16.0-40.0) % [place] % (Auto) (0.0-15.0) % Eos % (Auto) (0.0-7.0) % Baso % (Auto) (0.0-1.5) % Neut # (Auto) (1.4-5.7) K/uL Lymph # (Auto) (0.6-2.4) K/uL [place] # (Auto) (0.0-0.8) K/uL Eos # (Auto) (0.0-0.7) K/uL Baso # (Auto) (0.0-0.1) K/uL Nucleated RBC % /100WBC Nucleated RBCs # K/uL Sodium (136-145) mmol/L Potassium (3.5-5.1) mmol/L Chloride (98-107) mmol/L Carbon Dioxide (21.0-32.0) mmol/L BUN (7.0-18.0) mg/dL Creatinine (0.6-1.0) mg/dL Est Cr Clr Drug Dosing mL/min Estimated GFR (MDRD) ml/min Glucose (74-106) mg/dL POC Glucose 294 H 288 H 164 H (70-99) mg/dL Calcium (8.5-10.1) mg/dL 09/17/20 09/17/20 Range/Units 06:22 06:22 WBC 7.99 (4.0-11.0) K/uL RBC 4.03 L (4.30-5.90) M/uL Hgb 11.5 L (12.0-16.0) g/dL Hct 35.1 L (36.0-46.0) % MCV 87.1 (80.0-98.0) fL MCH 28.5 (27.0-32.0) pg MCHC 32.8 (31.0-37.0) g/dL RDW Std Deviation 46.2 (28.0-62.0) fl RDW Coeff of Kaylin 14 (11.0-15.0) % Plt Count 241 (150-400) K/uL MPV 10.40 (7.40-12.00) fL Neut % (Auto) 49.3 (48.0-80.0) % Lymph % (Auto) 30.2 (16.0-40.0) % [place] % (Auto) 16.4 H (0.0-15.0) % Eos % (Auto) 3.5 (0.0-7.0) % Baso % (Auto) 0.6 (0.0-1.5) % Neut # (Auto) 3.9 (1.4-5.7) K/uL Lymph # (Auto) 2.4 (0.6-2.4) K/uL [place] # (Auto) 1.3 H (0.0-0.8) K/uL Eos # (Auto) 0.3 (0.0-0.7) K/uL Baso # (Auto) 0.1 (0.0-0.1) K/uL Nucleated RBC % 0.0 /100WBC Nucleated RBCs # 0 K/uL Sodium 143 (136-145) mmol/L Potassium 3.8 (3.5-5.1) mmol/L Chloride 104 (98-107) mmol/L Carbon Dioxide 28.7 (21.0-32.0) mmol/L BUN 18 (7.0-18.0) mg/dL Creatinine 0.7 (0.6-1.0) mg/dL Est Cr Clr Drug Dosing 60.89 mL/min Estimated GFR (MDRD) > 60.0 ml/min Glucose 166 H (74-106) mg/dL POC Glucose (70-99) mg/dL Calcium 8.5 (8.5-10.1) mg/dL Jt Results Last 24 Hours: Microbiology 09/15/20 00:25 Aerobic Blood Culture - Preliminary Blood - Venous - Lab Draw NO GROWTH AFTER 2 DAYS Anaerobic Blood Culture - Preliminary NO GROWTH AFTER 2 DAYS 09/15/20 00:20 Aerobic Blood Culture - Preliminary Blood - Venous NO GROWTH AFTER 2 DAYS Anaerobic Blood Culture - Preliminary NO GROWTH AFTER 2 DAYS Med Orders - Current: Current Medications Amlodipine Besylate (Amlodipine 5 Mg Tab) 5 mg PO BEDTIME [facility] Last Admin: 09/16/20 21:02 Dose: 5 mg Documented by: Dextrose/Water (50% Dextrose In Water 50 Ml Syringe) 50 ml IVPUSH ASDIRECTED PRN PRN Reason: Hypoglycemia Glucagon (Glucagon,Human Recombinant 1 Mg Vial) 1 mg IM ASDIRECTED PRN PRN Reason: Hypoglycemia Cefepime HCl 2 gm/ Premix 50 mls @ 100 mls/hr IV Q8H [facility] Last Admin: 09/17/20 05:40 Dose: 100 mls/hr Documented by: Insulin Aspart (Insulin Aspart 100 Units/Ml 3 Ml Pen) 0 unit SUBCUT TIDAC [facility]; Protocol Last Admin: 09/16/20 17:44 Dose: 6 units Documented by: Insulin Glargine (Insulin Glargine,Human Rec. Analog 100 Units/Ml 3 Ml Pen) 58 units SUBCUT BEDTIME [facility] Last Admin: 09/16/20 21:03 Dose: 58 units Documented by: Levothyroxine Sodium (Levothyroxine 25 Mcg Tab) 25 mcg PO DAILY@0700 [facility] Last Admin: 09/17/20 06:09 Dose: 25 mcg Documented by: Metoprolol Succinate (Metoprolol Succinate 100 Mg Tab.Er) 100 mg PO QAM [facility] Last Admin: 09/16/20 09:40 Dose: 100 mg Documented by: Paroxetine HCl (Paroxetine 20 Mg Tab) 20 mg PO DAILY [facility] Last Admin: 09/16/20 09:41 Dose: 20 mg Documented by: Pregabalin (Pregabalin 50 Mg Cap) 100 mg PO WITHMEALSANDBED [facility] Last Admin: 09/16/20 21:01 Dose: 100 mg Documented by: Ramipril (Ramipril 10 Mg Cap) 20 mg PO DAILY [facility] Last Admin: 09/16/20 09:40 Dose: 20 mg Documented by: Simvastatin (Simvastatin 10 Mg Tab) 10 mg PO BEDTIME [facility] Last Admin: 09/16/20 21:02 Dose: 10 mg Documented by: Discontinued Medications Cefepime HCl 2 gm/ Premix 50 mls @ 100 mls/hr IV Q8H [facility] Last Admin: 09/16/20 17:10 Dose: 100 mls/hr Documented by: Cefepime HCl 2 gm/ Premix 50 mls @ 100 mls/hr IV ONETIME ONE Stop: 09/15/20 00:29 Last Admin: 09/15/20 00:51 Dose: 100 mls/hr Documented by: Non-Formulary Medication (Insulin Degludec [Tresiba Flextouch U-100]) 58 unit SQ BEDTIME [facility] - Exam General: Alert, Oriented Neck: Supple Lungs: Clear to Auscultation, Normal Respiratory Effort Cardiovascular: Regular Rate, Regular Rhythm GI/Abdominal Exam: Soft, Non-Tender, No Distention Extremities: Non-Tender, No Pedal Edema Skin: Warm, Dry, Intact Neurological: No New Focal Deficit - Patient Data Lab Results Last 24 hrs: Laboratory Results - last 24 hr 09/16/20 09/16/20 09/16/20 Range/Units 11:18 13:23 13:23 WBC 8.25 (4.0-11.0) K/uL RBC 4.16 L (4.30-5.90) M/uL Hgb 12.0 (12.0-16.0) g/dL Hct 36.8 (36.0-46.0) % MCV 88.5 (80.0-98.0) fL MCH 28.8 (27.0-32.0) pg MCHC 32.6 (31.0-37.0) g/dL RDW Std Deviation 47.3 (28.0-62.0) fl RDW Coeff of Kaylin 15 (11.0-15.0) % Plt Count 238 (150-400) K/uL MPV 10.10 (7.40-12.00) fL Neut % (Auto) 55.7 (48.0-80.0) % Lymph % (Auto) 28.2 (16.0-40.0) % [place]a % (Auto) 12.1 (0.0-15.0) % Eos % (Auto) 3.4 (0.0-7.0) % Baso % (Auto) 0.6 (0.0-1.5) % Neut # (Auto) 4.6 (1.4-5.7) K/uL Lymph # (Auto) 2.3 (0.6-2.4) K/uL [place] # (Auto) 1.0 H (0.0-0.8) K/uL Eos # (Auto) 0.3 (0.0-0.7) K/uL Baso # (Auto) 0.1 (0.0-0.1) K/uL Nucleated RBC % 0.0 /100WBC Nucleated RBCs # 0 K/uL Sodium 134 L (136-145) mmol/L Potassium 4.4 (3.5-5.1) mmol/L Chloride 99 (98-107) mmol/L Carbon Dioxide 26.4 (21.0-32.0) mmol/L BUN 16 (7.0-18.0) mg/dL Creatinine 1.0 (0.6-1.0) mg/dL Est Cr Clr Drug Dosing 42.62 mL/min Estimated GFR (MDRD) 54.2 ml/min Glucose 399 H (74-106) mg/dL POC Glucose 337 H (70-99) mg/dL Calcium 8.9 (8.5-10.1) mg/dL 09/16/20 09/16/20 09/17/20 Range/Units 16:38 20:59 05:47 WBC (4.0-11.0) K/uL RBC (4.30-5.90) M/uL Hgb (12.0-16.0) g/dL Hct (36.0-46.0) % MCV (80.0-98.0) fL MCH (27.0-32.0) pg MCHC (31.0-37.0) g/dL RDW Std Deviation (28.0-62.0) fl RDW Coeff of Kaylin (11.0-15.0) % Plt Count (150-400) K/uL MPV (7.40-12.00) fL Neut % (Auto) (48.0-80.0) % Lymph % (Auto) (16.0-40.0) % [place] % (Auto) (0.0-15.0) % Eos % (Auto) (0.0-7.0) % Baso % (Auto) (0.0-1.5) % Neut # (Auto) (1.4-5.7) K/uL Lymph # (Auto) (0.6-2.4) K/uL [place] # (Auto) (0.0-0.8) K/uL Eos # (Auto) (0.0-0.7) K/uL Baso # (Auto) (0.0-0.1) K/uL Nucleated RBC % /100WBC Nucleated RBCs # K/uL Sodium (136-145) mmol/L Potassium (3.5-5.1) mmol/L Chloride (98-107) mmol/L Carbon Dioxide (21.0-32.0) mmol/L BUN (7.0-18.0) mg/dL Creatinine (0.6-1.0) mg/dL Est Cr Clr Drug Dosing mL/min Estimated GFR (MDRD) ml/min Glucose (74-106) mg/dL POC Glucose 294 H 288 H 164 H (70-99) mg/dL Calcium (8.5-10.1) mg/dL 09/17/20 09/17/20 Range/Units 06:22 06:22 WBC 7.99 (4.0-11.0) K/uL RBC 4.03 L (4.30-5.90) M/uL Hgb 11.5 L (12.0-16.0) g/dL Hct 35.1 L (36.0-46.0) % MCV 87.1 (80.0-98.0) fL MCH 28.5 (27.0-32.0) pg MCHC 32.8 (31.0-37.0) g/dL RDW Std Deviation 46.2 (28.0-62.0) fl RDW Coeff of Kaylin 14 (11.0-15.0) % Plt Count 241 (150-400) K/uL MPV 10.40 (7.40-12.00) fL Neut % (Auto) 49.3 (48.0-80.0) % Lymph % (Auto) 30.2 (16.0-40.0) % [place] % (Auto) 16.4 H (0.0-15.0) % Eos % (Auto) 3.5 (0.0-7.0) % Baso % (Auto) 0.6 (0.0-1.5) % Neut # (Auto) 3.9 (1.4-5.7) K/uL Lymph # (Auto) 2.4 (0.6-2.4) K/uL [place] # (Auto) 1.3 H (0.0-0.8) K/uL Eos # (Auto) 0.3 (0.0-0.7) K/uL Baso # (Auto) 0.1 (0.0-0.1) K/uL Nucleated RBC % 0.0 /100WBC Nucleated RBCs # 0 K/uL Sodium 143 (136-145) mmol/L Potassium 3.8 (3.5-5.1) mmol/L Chloride 104 (98-107) mmol/L Carbon Dioxide 28.7 (21.0-32.0) mmol/L BUN 18 (7.0-18.0) mg/dL Creatinine 0.7 (0.6-1.0) mg/dL Est Cr Clr Drug Dosing 60.89 mL/min Estimated GFR (MDRD) > 60.0 ml/min Glucose 166 H (74-106) mg/dL POC Glucose (70-99) mg/dL Calcium 8.5 (8.5-10.1) mg/dL Result Diagrams: 09/17/20 06:22 09/17/20 06:22 Jt Results Last 24 hrs: Microbiology 09/15/20 00:25 Aerobic Blood Culture - Preliminary Blood - Venous - Lab Draw NO GROWTH AFTER 2 DAYS Anaerobic Blood Culture - Preliminary NO GROWTH AFTER 2 DAYS 09/15/20 00:20 Aerobic Blood Culture - Preliminary Blood - Venous NO GROWTH AFTER 2 DAYS Anaerobic Blood Culture - Preliminary NO GROWTH AFTER 2 DAYS Sepsis Event Note - Evaluation Sepsis Screening Result: No Definite Risk - Focused Exam Vital Signs: Vital Signs Temp Pulse Resp BP Pulse Ox 09/17/20 05:12 36.1 C 70 16 149/70 H 93 L 09/17/20 00:02 36.1 C 67 19 139/73 93 L - Problem List Review Problem List Initiated/Reviewed/Updated: Yes - My Orders Last 24 Hours: My Active Orders 09/17/20 06:00 Cefepime [Maxipime in D5W 2 GM/50 ML] 2 gm Premix Bag 1 bag IV Q8H 09/18/20 05:11 BASIC METABOLIC PANEL,BMP [CHEM] AM CBC WITH AUTO DIFF [HEME] AM - Plan Plan:: 75 yo female admitted for gram negative suma bacteremia Bacteremia: 1/ blood cultures growing gram negative rods. Will continue IV cefepime, and await culture sensitives.
[2020-09-17] MEDS: PARoxetine 20 MG Tab PO SCH (09:50)
[2020-09-17] MEDS: Pregabalin 50 MG Cap PO SCH ×4 (09:50→21:23)
[2020-09-17] MEDS: Metoprolol Succinate 100 MG Tab.ER PO SCH (09:57)
[2020-09-17] MEDS: Insulin Aspart 100 Units/ML 3 ML Pen SUBCUT SCH ×3 (12:35→17:07)
[2020-09-17] MEDS: Insulin Glargine,Human Rec. Analog 100 Units/ML 3 ML Pen SUBCUT SCH (21:24)
[2020-09-17] MEDS: amLODIPine 5 MG Tab PO SCH (21:28)
[2020-09-17] MEDS: Simvastatin 10 MG Tab PO SCH (21:28)
[2020-09-18] MEDS: Cefepime 2 GM in Premix Bag 1 BAG IV SCH ×2 (05:14→13:02)
[2020-09-18] MEDS: Levothyroxine 25 MCG Tab PO SCH (06:26)
[2020-09-18 07:20] LABS: BLOOD UREA NITROGEN,BUN 17 mg/dL (7.0-18.0); CARBON DIOXIDE,CO2 28.7 mmol/L (21.0-32.0); CHLORIDE,CL 102 mmol/L (98-107); GLUCOSE RANDOM 264 mg/dL (74-106); POTASSIUM,K 4.4 mmol/L (3.5-5.1); SODIUM,NA 139 mmol/L (136-145)
[2020-09-18] MEDS: Pregabalin 50 MG Cap PO SCH ×2 (08:08→12:37)
[2020-09-18] MEDS: PARoxetine 20 MG Tab PO SCH (08:08)
[2020-09-18] MEDS: Metoprolol Succinate 100 MG Tab.ER PO SCH (08:09)
[2020-09-18] MEDS: Insulin Aspart 100 Units/ML 3 ML Pen SUBCUT SCH ×2 (09:02→12:59)
--- NOTE | 2020-09-18 14:14 | PCM.DCSUM1 ---
Discharge Summary - Discharge Data Discharge Date: 09/18/20 Discharge Disposition: Home, Self-Care 01 Condition: Good - Referral to Home Health Primary Care Physician: PCP None - Patient Summary/Data Hospital Course: 75 yo female who was admitted for ecoli bacteremia. She was initially admitted on 09/13/20 after brief episode of rigors and chills. Her leukocytosis and symptoms improved with IV fluids and patient was discharge home with levaquin orally. When blood cultures grew out gram negative rods 1/4 bottles she was called back in for more IV antibiotic therapyw. Her UA, CT chest, abdomen, pelvis and face were negative. She was treated with Cefepime. Her cultures grew out E.coli. She is to be discharge home with seven more days of Levaquin. - Patient Instructions Diet: Diabetic Diet Activity: As Tolerated Notify Provider of: Fever, Increased Pain, Nausea and/or Vomiting - Discharge Plan Prescriptions/Med Rec: levoFLOXacin [Levaquin] 750 mg PO DAILY #7 tab Home Medications: Home Meds Liraglutide [Victoza] 1.2 mg SUBCUT QAM 09/27/14 [History] PARoxetine [Paxil] 20 mg PO DAILY 09/27/14 [History] Simvastatin [Zocor] 10 mg PO BEDTIME 09/27/14 [History] metFORMIN [Glucophage XR] 500 mg PO WITHMEALSANDBED 09/27/14 [History] ramipriL [Altace] 20 mg PO DAILY 09/27/14 [History] Insulin Degludec [Tresiba Flextouch U-100] 58 unit SQ BEDTIME 12/24/16 [History] Insulin Lispro [Humalog Kwikpen U-100] 17 unit SQ WITHBREAKFAST 12/24/16 [History] Metoprolol Succinate [Toprol XL] 100 mg PO QAM 12/24/16 [History] Pregabalin [Lyrica] 100 mg PO WITHMEALSANDBED 12/24/16 [History] Ibuprofen [Advil] 200 mg PO BID 06/26/17 [History] Multivitamin [Multivitamins] 1 tab PO DAILY 06/26/17 [History] amLODIPine Besylate [Amlodipine Besylate] 5 mg PO BEDTIME 06/26/17 [History] Cholecalciferol (Vitamin D3) [Vitamin D3] 400 unit PO DAILY 10/29/17 [History] Levothyroxine 25 mcg PO QAM 10/29/17 [History] Cinnamon Bark [Cinnamon] 1 mg PO DAILY 09/12/20 [History] Fish Oil/Borage/Flax/Om3,6,9 1 [[place] 3-6-9 Complex Softgel] 400 mg PO DAILY 09/12/20 [History] Insulin Lispro [Humalog Kwikpen U-100] 7 units SUBCUT WITHLUNCH 09/13/20 [History] Insulin Lispro [Humalog Kwikpen U-100] 15 unit SQ WITHDINNER 09/13/20 [History] levoFLOXacin [Levaquin] 750 mg PO DAILY #7 tab 09/18/20 [Rx] Referrals: Pio Alegre MD [Ordering Only Provider] - 09/23/20 8:00 am - Discharge Summary/Plan Comment DC Time >30 min.: No - Patient Data Vitals - Most Recent: Last Vital Signs Temp 36.6 C 09/18/20 08:06 Pulse 77 09/18/20 08:09 Resp 16 09/18/20 08:06 BP 111/54 L 09/18/20 08:09 Pulse Ox 93 L 09/18/20 08:06 Weight - Most Recent: 89.896 kg I&O - Last 24 hours: Intake & Output 09/17/20 09/18/20 09/18/20 22:59 06:59 14:59 Intake Total 1430 550 Output Total 1600 1100 Balance -170 -550 Lab Results - Last 24 hrs: Laboratory Results - last 24 hr 09/17/20 09/17/20 09/18/20 Range/Units 17:04 21:22 06:20 WBC 9.22 (4.0-11.0) K/uL RBC 4.02 L (4.30-5.90) M/uL Hgb 11.5 L (12.0-16.0) g/dL Hct 35.3 L (36.0-46.0) % MCV 87.8 (80.0-98.0) fL MCH 28.6 (27.0-32.0) pg MCHC 32.6 (31.0-37.0) g/dL RDW Std Deviation 46.6 (28.0-62.0) fl RDW Coeff of Kaylin 15 (11.0-15.0) % Plt Count 243 (150-400) K/uL MPV 10.00 (7.40-12.00) fL Neut % (Auto) 53.4 (48.0-80.0) % Lymph % (Auto) 27.1 (16.0-40.0) % [place] % (Auto) 14.2 (0.0-15.0) % Eos % (Auto) 4.4 (0.0-7.0) % Baso % (Auto) 0.9 (0.0-1.5) % Neut # (Auto) 4.9 (1.4-5.7) K/uL Lymph # (Auto) 2.5 H (0.6-2.4) K/uL [place] # (Auto) 1.3 H (0.0-0.8) K/uL Eos # (Auto) 0.4 (0.0-0.7) K/uL Baso # (Auto) 0.1 (0.0-0.1) K/uL Nucleated RBC % 0.0 /100WBC Nucleated RBCs # 0 K/uL Sodium (136-145) mmol/L Potassium (3.5-5.1) mmol/L Chloride (98-107) mmol/L Carbon Dioxide (21.0-32.0) mmol/L BUN (7.0-18.0) mg/dL Creatinine (0.6-1.0) mg/dL Est Cr Clr Drug Dosing mL/min Estimated GFR (MDRD) ml/min Glucose (74-106) mg/dL POC Glucose 398 H 297 H (70-99) mg/dL Calcium (8.5-10.1) mg/dL 09/18/20 09/18/20 09/18/20 Range/Units 06:20 06:23 12:52 WBC (4.0-11.0) K/uL RBC (4.30-5.90) M/uL Hgb (12.0-16.0) g/dL Hct (36.0-46.0) % MCV (80.0-98.0) fL MCH (27.0-32.0) pg MCHC (31.0-37.0) g/dL RDW Std Deviation (28.0-62.0) fl RDW Coeff of Kaylin (11.0-15.0) % Plt Count (150-400) K/uL MPV (7.40-12.00) fL Neut % (Auto) (48.0-80.0) % Lymph % (Auto) (16.0-40.0) % [place] % (Auto) (0.0-15.0) % Eos % (Auto) (0.0-7.0) % Baso % (Auto) (0.0-1.5) % Neut # (Auto) (1.4-5.7) K/uL Lymph # (Auto) (0.6-2.4) K/uL [place] # (Auto) (0.0-0.8) K/uL Eos # (Auto) (0.0-0.7) K/uL Baso # (Auto) (0.0-0.1) K/uL Nucleated RBC % /100WBC Nucleated RBCs # K/uL Sodium 139 (136-145) mmol/L Potassium 4.4 (3.5-5.1) mmol/L Chloride 102 (98-107) mmol/L Carbon Dioxide 28.7 (21.0-32.0) mmol/L BUN 17 (7.0-18.0) mg/dL Creatinine 0.8 (0.6-1.0) mg/dL Est Cr Clr Drug Dosing 53.28 mL/min Estimated GFR (MDRD) > 60.0 ml/min Glucose 264 H (74-106) mg/dL POC Glucose 260 H 292 H (70-99) mg/dL Calcium 8.5 (8.5-10.1) mg/dL DAVID Results - Last 24 hrs: Microbiology 09/15/20 00:25 Aerobic Blood Culture - Preliminary Blood - Venous - Lab Draw NO GROWTH AFTER 3 DAYS Anaerobic Blood Culture - Preliminary NO GROWTH AFTER 3 DAYS 09/15/20 00:20 Aerobic Blood Culture - Preliminary Blood - Venous NO GROWTH AFTER 3 DAYS Anaerobic Blood Culture - Preliminary NO GROWTH AFTER 3 DAYS Med Orders - Current: Current Medications Amlodipine Besylate (Amlodipine 5 Mg Tab) 5 mg PO BEDTIME [facility] Last Admin: 09/17/20 21:28 Dose: 5 mg Documented by: Dextrose/Water (50% Dextrose In Water 50 Ml Syringe) 50 ml IVPUSH ASDIRECTED PRN PRN Reason: Hypoglycemia Glucagon (Glucagon,Human Recombinant 1 Mg Vial) 1 mg IM ASDIRECTED PRN PRN Reason: Hypoglycemia Cefepime HCl 2 gm/ Premix 50 mls @ 100 mls/hr IV Q8H [facility] Last Admin: 09/18/20 13:02 Dose: 100 mls/hr Documented by: Insulin Aspart (Insulin Aspart 100 Units/Ml 3 Ml Pen) 0 unit SUBCUT TIDAC [facility]; Protocol Last Admin: 09/18/20 12:59 Dose: 6 units Documented by: Insulin Glargine (Insulin Glargine,Human Rec. Analog 100 Units/Ml 3 Ml Pen) 58 units SUBCUT BEDTIME [facility] Last Admin: 09/17/20 21:24 Dose: 58 units Documented by: Levothyroxine Sodium (Levothyroxine 25 Mcg Tab) 25 mcg PO DAILY@0700 [facility] Last Admin: 09/18/20 06:26 Dose: 25 mcg Documented by: Metoprolol Succinate (Metoprolol Succinate 100 Mg Tab.Er) 100 mg PO QAM [facility] Last Admin: 09/18/20 08:09 Dose: 100 mg Documented by: Paroxetine HCl (Paroxetine 20 Mg Tab) 20 mg PO DAILY [facility] Last Admin: 09/18/20 08:08 Dose: 20 mg Documented by: Pregabalin (Pregabalin 50 Mg Cap) 100 mg PO WITHMEALSANDBED [facility] Last Admin: 09/18/20 12:37 Dose: 100 mg Documented by: Ramipril (Ramipril 10 Mg Cap) 20 mg PO DAILY [facility] Last Admin: 09/18/20 08:07 Dose: 20 mg Documented by: Simvastatin (Simvastatin 10 Mg Tab) 10 mg PO BEDTIME [facility] Last Admin: 09/17/20 21:28 Dose: 10 mg Documented by: Discontinued Medications Cefepime HCl 2 gm/ Premix 50 mls @ 100 mls/hr IV Q8H [facility] Last Admin: 09/16/20 17:10 Dose: 100 mls/hr Documented by: Cefepime HCl 2 gm/ Premix 50 mls @ 100 mls/hr IV ONETIME ONE Stop: 09/15/20 00:29 Last Admin: 09/15/20 00:51 Dose: 100 mls/hr Documented by: Non-Formulary Medication (Insulin Degludec [Tresiba Flextouch U-100]) 58 unit SQ BEDTIME [facility]
[2020-09-18 15:21] VITALS: BP 128/73; PULSE 73
== END 2020-09-18 15:00 | disposition home or self-care (01) | DRG 872 ==
LOC: MW.MS 23:43
PROVIDERS: ADMIT Internal Medicine; ATTEND Internal Medicine
DX: R78.81 Bacteremia (principal); H54.7 Unspecified visual loss; E78.00 Pure hypercholesterolemia, unspecified; I10 Essential (primary) hypertension; M19.90 Unspecified osteoarthritis, unspecified site; M81.0 Age-related osteoporosis without current pathological fracture; F32.9 Major depressive disorder, single episode, unspecified; E11.9 Type 2 diabetes mellitus without complications; E03.9 Hypothyroidism, unspecified; B96.20 Unspecified Escherichia coli [E. coli] as the cause of diseases classified elsewhere; E66.9 Obesity, unspecified; D64.9 Anemia, unspecified; Z96.612 Presence of left artificial shoulder joint; Z96.611 Presence of right artificial shoulder joint; Z86.19 Personal history of other infectious and parasitic diseases; Z79.4 Long term (current) use of insulin; Z79.899 Other long term (current) drug therapy; Z90.89 Acquired absence of other organs; Z88.5 Allergy status to narcotic agent; Z90.710 Acquired absence of both cervix and uterus; Z88.8 Allergy status to other drugs, medicaments and biological substances; Z68.34 Body mass index [BMI] 34.0-34.9, adult
CPT/HCPCS: 36415; 70486; 70486-26; 71045; 71045-26; 74176; 74176-26; 80048; 81001; 82947; 85025; 87040; A9270-GY; J0692; J1815-GY

== ENCOUNTER 2020-11-08 17:40 | Emergency (ER) | payer MEDICARE, OTHER ==
[2020-11-08] MEDS ORDERED: Lidocaine 5% 700 MG Patch TOP ONE (18:31)
--- NOTE | 2020-11-08 18:31 | EDM.PDOC ---
ED HPI GENERAL MEDICAL PROBLEM - General Chief Complaint: Lower Extremity Injury/Pain Stated Complaint: FALL Time Seen by Provider: 11/08/20 18:01 Source of Information: Reports: Patient History Limitations: Reports: No Limitations - History of Present Illness INITIAL COMMENTS - FREE TEXT/NARRATIVE: HISTORY AND PHYSICAL: History of present illness: Patient is a 75-year-old female who presents to the emergency room with complaints of left hip pain that radiates down to her knee. She states she was getting into a vehicle when she moved her left leg to sit down, she felt a sharp burning pain in the left hip that radiates down to her knee. She believes it is a muscle spasm. She does wear a brace to her left lower extremity for foot drop (has worn for 6 years) and uses a cane/walker for ambulation. She denies any numbness, tingling, saddle paresthesias. Patient denies any fever, chills, headache, change in vision, syncope or near syncope. Denies any chest pain, back pain, shortness of breath or cough. Denies any abdominal pain, nausea, vomiting, diarrhea, constipation or dysuria. Has not noted any blood in urine or stool. Patient has been eating and drinking appropriately. Review of systems: As per history of present illness and below otherwise all systems reviewed and negative. Past medical history: As per history of present illness and as reviewed below otherwise noncontributory. Surgical history: As per history of present illness and as reviewed below otherwise noncontributory. Social history: See social history for further information Family history: As per history of present illness and as reviewed below otherwise noncontributory. Physical exam: General: Well developed and well nourished 75 year old female. Alert and orientated x 3. Nontoxic in appearance and in no acute distress. Vital signs are stable and have been reviewed by me. Nursing notes were reviewed. HEENT: Atraumatic, normocephalic, pupils equal and reactive bilaterally, negative for conjunctival pallor or scleral icterus, mucous membranes moist, trachea midline. No drooling or trismus noted. No meningeal signs. No hot potato voice noted. Lungs: Clear to auscultation bilaterally. No wheezes, rales, or rhonchi. Chest nontender. Normal work of breathing, no accessory muscles used. Heart: S1S2, regular rate and rhythm without overt murmur, gallops, or rubs. No JVD. No peripheral edema Abdomen: Soft, nondistended, nontender. Normoactive bowel sounds. Negative for masses or costovertebral tenderness. Skin: Intact, warm, dry. No lesions or rashes noted. C-spine/Back: No pinpoint vertebral tenderness upon palpation. No crepitus, step-offs or obvious deformities. Patient is ambulatory into the emergency room without difficulty or deficit. Able to rock back on heels and walk on toes. Denies any urinary or fecal incontinence. Denies any numbness, tingling or saddle paresthesia. No concerns of serious infection, fracture or cord compression, or cauda equina syndrome. Deep tendon reflexes brisk bilaterally. Hematologic: No petechiae or purpra. Mucosa appropriate color and normal nail bed color and refill. Extremities: Atraumatic, Muscular pain with palpation of the left lateral hip/glute. Movement causes increased pain. She otherwise moves all other extremities per self without difficulty or deficits, negative for cords or calf pain. Wears brace on left foot for chronic foot drop. Strong pedal pulses and pretibial pulses. Neurovascular unremarkable. Neuro: Awake, alert, oriented. Cranial nerves II through XII unremarkable. Cerebellum unremarkable. Motor and sensory unremarkable throughout. Exam nonfocal. Psychiatric: Mood and affect are appropriate. Normal thought process. Answering questions appropriately. Please note that the patient was seen and evaluated during the 2019 SARS-CoV-2 novel coronavirus pandemic period. Community viral transmission is ongoing at time of this encounter and the emergency department is operating under pandemic response procedures. Medical Decision Making: Patient is a 75-year-old female who presents to the emergency room with complaints of left hip pain that radiates down to her knee. She denies any p hysical injury or trauma although states she was trying to get into a vehicle when she extended her leg out to get in to sit down. Describes the pain as a sharp burning sensation which she believes is a "muscle spasm". Patient did get morphine prior to arrival by ambulance. Due to the high volume of the emergency room she did have her IV removed as she was having to wait in her overflow area unattended. She states the morphine that helped somewhat but did not get long- lasting relief. She does have several allergies, will give her Lidoderm patch. We will get x-rays. I have no concern for blood clot, she has strong pulses and the pain is reproducible with movement and palpation. Patient did have to void, she does request a urine sample to be done as she has a history of UTIs. Patient does have a urinary tract infection. We will treat with antibiotics. Hip x-ray shows no acute osseous abnormality. Mild to moderate degenerative changes of the hips. Knee x-ray shows no acute osseous abnormality. Tricompartment degenerative changes, most pronounced in the patellofemoral compartment. I have talked with the patient about today's findings, in addition to providing specific details for plan of care. Reassessment at the time of disposition demonstrates that the patient is in no acute distress. The patient is stable for discharge, counseling was provided and we discussed in great detail signs and symptoms that would prompt them to return to the Emergency Department. Medication, follow up and supportive care measures were reviewed and discussed. Voices understanding and is agreeable to plan of care. Denies any further questions or concerns at this time. Diagnostics: X-ray left hip/knee Therapeutics: Lidoderm patch Prescription: Keflex, Lidoderm patch Impression: UTI Muscular Strain, left hip Plan: 1. You were evaluated today on an emergent basis. Your urine shows a bladder infection. Please take the antibiotic as prescribed. Increase your oral fluids. X-ray showed no fractures or dislocations. Due to the medications you are currently on and your allergies I have prescribed a Lidoderm patch. One was placed on you while here. If you feel this did improve your pain, you can pick this up at your pharmacy. 2. You can alternate Tylenol and ibuprofen as needed for pain and fever management. 3. We encourage you to follow up with your primary care provider and/or recommended specialist in the next few days for re-evaluation and further care/management. 4. If your symptoms should worsen, new symptoms develop or any of the signs and symptoms we discussed should arise please return to the emergency room or call 911 (if needed). Definitive disposition and diagnosis as appropriate pending reevaluation and review of above. - Related Data Allergies Allergy/AdvReac Type Severity Reaction Status Date / Time cyclobenzaprine Allergy Other Verified 11/08/20 19:31 [From Flexeril] ketorolac Allergy Other Verified 11/08/20 19:31 meperidine [From Demerol] Allergy Change Verified 11/08/20 19:31 Mental Status maxim [From Relafen] Allergy nightmares Verified 11/08/20 19:31 Home Meds: Home Meds Liraglutide [Victoza] 1.2 mg SUBCUT QAM 09/27/14 [History] PARoxetine [Paxil] 20 mg PO DAILY 09/27/14 [History] Simvastatin [Zocor] 10 mg PO BEDTIME 09/27/14 [History] metFORMIN [Glucophage XR] 500 mg PO WITHMEALSANDBED 09/27/14 [History] ramipriL [Altace] 20 mg PO DAILY 09/27/14 [History] Insulin Degludec [Tresiba Flextouch U-100] 58 unit SQ BEDTIME 12/24/16 [History] Insulin Lispro [Humalog Kwikpen U-100] 17 unit SQ WITHBREAKFAST 12/24/16 [History] Metoprolol Succinate [Toprol XL] 100 mg PO QAM 12/24/16 [History] Pregabalin [Lyrica] 100 mg PO WITHMEALSANDBED 12/24/16 [History] Ibuprofen [Advil] 200 mg PO BID 06/26/17 [History] Multivitamin [Multivitamins] 1 tab PO DAILY 06/26/17 [History] amLODIPine Besylate [Amlodipine Besylate] 5 mg PO BEDTIME 06/26/17 [History] Cholecalciferol (Vitamin D3) [Vitamin D3] 400 unit PO DAILY 10/29/17 [History] Levothyroxine 25 mcg PO QAM 10/29/17 [History] Cinnamon Bark [Cinnamon] 1 mg PO DAILY 09/12/20 [History] Fish Oil/Borage/Flax/Om3,6,9 1 [[place] 3-6-9 Complex Softgel] 400 mg PO DAILY 09/12/20 [History] Insulin Lispro [Humalog Kwikpen U-100] 7 units SUBCUT WITHLUNCH 09/13/20 [History] Insulin Lispro [Humalog Kwikpen U-100] 15 unit SQ WITHDINNER 09/13/20 [History] levoFLOXacin [Levaquin] 750 mg PO DAILY #7 tab 09/18/20 [Rx] Lidocaine 5% [Lidoderm 5%] 1 patch TOP DAILY PRN #5 patch 11/08/20 [Rx] cephALEXin [Keflex] 500 mg PO TID 5 Days #15 cap 11/08/20 [Rx] Past Medical History HEENT History: Reports: None, Other (See Below) Other HEENT History: uses reading glasses Cardiovascular History: Reports: High Cholesterol, Hypertension Respiratory History: Reports: None Gastrointestinal History: Reports: None Genitourinary History: Reports: UTI, Recurrent Other Genitourinary History: recent UTI CREDIT SUPPORT COUNSELOR History: Reports: Musculoskeletal History: Reports: Arthritis, Fracture, Osteoporosis Other Musculoskeletal History: hx of fx wrist and foot x2 Neurological History: Reports: None Psychiatric History: Reports: Depression, Other (See Below) Other Psychiatric History: very Claustrophobic Endocrine/Metabolic History: Reports: Diabetes, Type II, Hypothyroidism, IDDM, Obesity/BMI 30+ Hematologic History: Reports: Anemia Immunologic History: Reports: None Oncologic (Cancer) History: Reports: None Dermatologic History: Reports: None - Infectious Disease History Infectious Disease History: Reports: Chicken Pox, Measles, Mumps - Past Surgical History Head Surgeries/Procedures: Reports: None HEENT Surgical History: Reports: LASIK, Tonsillectomy Cardiovascular Surgical History: Reports: None Respiratory Surgical History: Reports: None GI Surgical History: Reports: Appendectomy Female Surgical History: Reports: Breast Biopsy, Hysterectomy, Salpingo- Oophorectomy Neurological Surgical History: Reports: C-Spine, Laminectomy, Spinal Fusion Other Neurological Surgeries/Procedures: hardware in back and neck Musculoskeletal Surgical History: Reports: Carpal Tunnel, Shoulder Replacement, Other (See Below) Other Musculoskeletal Surgeries/Procedures:: bilateral TSA, tendon repair in foot Social & Family History - Family History Family Medical History: No Pertinent Family History HEENT: Reports: Cataract, Glaucoma Cardiac: Reports: High Cholesterol, Hypertension, Pacemaker Respiratory: Reports: COPD GI: Reports: None : Reports: None OBGYN: Reports: None Musculoskeletal: Reports: Arthritis, Osteoporosis Neurological: Reports: None Psychiatric: Reports: None Endocrine/Metabolic: Reports: Diabetes, type II Hematologic: Reports: Anemia Immunologic: Reports: None Dermatologic: Reports: None Oncologic: Reports: Breast, Other (See Below) Other Oncologic Family History: throat - Caffeine Use Caffeine Use: Reports: Soda, Tea Review of Systems - Review of Systems Review Of Systems: Comprehensive ROS is negative, except as noted in HPI. ED EXAM, GENERAL - Physical Exam Exam: See Below (See dictation) Course - Vital Signs Last Recorded V/S: Last Vital Signs Temp 98.2 F 11/08/20 18:15 Pulse 92 11/08/20 20:48 Resp 18 11/08/20 20:48 BP 141/71 H 11/08/20 20:48 Pulse Ox 92 L 11/08/20 20:48 - Orders/Labs/Meds Orders: Active Orders 24 hr Category Date Time Status CULTURE URINE [MREF] Stat Lab 11/08/20 19:35 Received Labs: Laboratory Tests 11/08/20 Range/Units 19:35 Urine Color YELLOW Urine Appearance SLT CLOUDY Urine pH 6.0 (5.0-8.0) Ur Specific [place] >= 1.030 (1.001-1.035) Urine Protein 30 H (NEGATIVE) mg/dL Urine Glucose (UA) NEGATIVE (NEGATIVE) mg/dL Urine Ketones NEGATIVE (NEGATIVE) mg/dL Urine Occult Blood TRACE-INTACT H (NEGATIVE) Urine Nitrite POSITIVE H (NEGATIVE) Urine Bilirubin NEGATIVE (NEGATIVE) Urine Urobilinogen 0.2 (<2.0) EU/dL Ur Leukocyte Esterase TRACE H (NEGATIVE) Urine RBC 0-2 (0-2/HPF) Urine WBC 10-15 (0-5/HPF) Ur Epithelial Cells FEW (NONE-FEW) Urine Bacteria 2+ H (NEGATIVE) Meds: Medications Discontinued Medications Generic Name Dose Route Start Last Admin Trade Name Freq PRN Reason Stop Dose Admin Cephalexin 500 mg 11/08/20 20:21 11/08/20 20:44 Cephalexin 500 Mg Cap PO 11/08/20 20:22 500 mg ONETIME ONE Administration Lidocaine 700 mg 11/08/20 18:31 11/08/20 19:18 Lidocaine 5% 700 Mg Patch TOP 11/08/20 18:32 700 mg ONETIME ONE Administration Departure - Departure Time of Disposition: 21:28 Disposition: Home, Self-Care 01 Clinical Impression: UTI (urinary tract infection) Qualifiers: Urinary tract infection type: site unspecified Hematuria presence: without hematuria Qualified Code(s): N39.0 - Urinary tract infection, site not specified Muscle strain of left hip Qualifiers: Encounter type: initial encounter Qualified Code(s): S76.012A - Strain of muscle, fascia and tendon of left hip, initial encounter - Discharge Information Prescriptions: cephALEXin [Keflex] 500 mg PO TID 5 Days #15 cap Lidocaine 5% [Lidoderm 5%] 1 patch TOP DAILY PRN #5 patch PRN Reason: Pain Instructions: Muscle Strain, [id number] Referrals: Pio Alegre MD [Primary Care Provider] - Forms: ED Department Discharge Additional Instructions: The following information is given to patients seen in the emergency department who are being discharged to home. This information is to outline your options for follow-up care. We provide all patients seen in our emergency department with a follow-up referral. The need for follow-up, as well as the timing and circumstances, are variable depending upon the specifics of your emergency department visit. If you don't have a primary care physician on staff, we will provide you with a referral. We always advise you to contact your personal physician following an emergency department visit to inform them of the circumstance of the visit and for follow-up with them and/or the need for any referrals to a consulting specialist. The emergency department will also refer you to a specialist when appropriate. This referral assures that you have the opportunity for follow-up care with a specialist. All of these measure are taken in an effort to provide you with optimal care, which includes your follow-up. Under all circumstances we always encourage you to contact your private physician who remains a resource for coordinating your care. When calling for follow-up care, please make the office aware that this follow-up is from your recent emergency room visit. If for any reason you are refused follow-up, please contact the [facility] Emergency Department at and asked to speak to the emergency department charge nurse. [facility] [address] [place] [id number] [address] Thank you for choosing the [facility] emergency department in [place] for your medical needs today. It was a pleasure caring for you. Today you were seen in the emergency department for hip pain. 1. You were evaluated today on an emergent basis. Your urine shows a bladder infection. Please take the antibiotic as prescribed. Increase your oral fluids. X-ray showed no fractures or dislocations. Due to the medications you are currently on and your allergies I have prescribed a Lidoderm patch. One was placed on you while here. If you feel this did improve your pain, you can pick this up at your pharmacy. 2. You can alternate Tylenol and ibuprofen as needed for pain and fever management. 3. We encourage you to follow up with your primary care provider and/or recommended specialist in the next few days for re-evaluation and further care/management. 4. If your symptoms should worsen, new symptoms develop or any of the signs and symptoms we discussed should arise please return to the emergency room or call 911 (if needed). Sepsis Event Note (ED) - Focused Exam Vital Signs: Vital Signs Temp Pulse Resp BP Pulse Ox 11/08/20 20:48 92 18 141/71 H 92 L 11/08/20 19:38 99 18 159/76 H 92 L 11/08/20 18:30 80 18 138/91 H 97 11/08/20 18:15 98.2 F 78 18 144/81 H 95 - My Orders Last 24 Hours: My Active Orders 11/08/20 19:35 CULTURE URINE [MREF] Stat - Assessment/Plan Last 24 Hours: My Active Orders 11/08/20 19:35 CULTURE URINE [MREF] Stat
[2020-11-08] MEDS ORDERED: Cephalexin 500 MG Cap PO ONE (20:21)
[2020-11-08 20:49] VITALS: BP 141/71; PULSE 92
--- NOTE | 2020-11-08 21:07 | CR ---
INDICATION: Hip pain. COMPARISON: 08/31/2011. FINDINGS: AP view of hips and pelvis and AP and cross-table views of the left hip. FINDINGS: Mild osteopenia. Normal alignment. No fracture or dislocation. [id number] degenerative changes of the hips. Pubic symphysis is intact. Multilevel spinal fusion of the lumbosacral spine. Soft tissues are unremarkable. IMPRESSION: 1. No acute osseous abnormality. 2. Mild to moderate degenerative changes of the hips. Dictated by Ryan Cool MD @ 11/08/2020 9:06:11 PM Dictated by: Ryan Cool MD @ 11/08/2020 21:06:21 (Electronically Signed)
--- NOTE | 2020-11-08 21:09 | CR ---
INDICATION: Left knee pain. COMPARISON: None. TECHNIQUE: Three views of the left knee. FINDINGS: Mild diffuse osteopenia. Normal alignment. No fracture or dislocation. Tricompartment osteoarthritic degenerative changes, most pronounced in the patellofemoral compartment with there is near [id number] joint space narrowing and osteophyte formation. No significant effusion. IMPRESSION: 1. No acute osseous abnormality. 2. Tricompartment degenerative changes, most pronounced in the patellofemoral compartment. Dictated by Ryan Cool MD @ 11/08/2020 9:08:36 PM Dictated by: Ryan Cool MD @ 11/08/2020 21:08:45 (Electronically Signed)
[2020-11-08] MEDS ORDERED: Cyclobenzaprine 10 MG Tab PO ONE (23:05)
== END 2020-11-09 00:26 | disposition home or self-care (01) ==
LOC: MW.ED 17:40
DX: S76.012A Strain of muscle, fascia and tendon of left hip, initial encounter (principal); N39.0 Urinary tract infection, site not specified; E78.00 Pure hypercholesterolemia, unspecified; I10 Essential (primary) hypertension; M19.90 Unspecified osteoarthritis, unspecified site; E11.9 Type 2 diabetes mellitus without complications; E03.9 Hypothyroidism, unspecified; E66.9 Obesity, unspecified; Z68.39 Body mass index [BMI] 39.0-39.9, adult; Z88.8 Allergy status to other drugs, medicaments and biological substances; Z88.5 Allergy status to narcotic agent; Z79.4 Long term (current) use of insulin; Z79.899 Other long term (current) drug therapy; X58.XXXA Exposure to other specified factors, initial encounter
CPT/HCPCS: 73502; 73562; 81001; 87086; 87088; 87186; 99284; A9270

== ENCOUNTER 2021-06-15 23:42 | Emergency (ER) | payer MEDICARE, OTHER ==
[2021-06-16 03:38] VITALS: BP 139/67; PULSE 85
== END 2021-06-16 03:45 | disposition home or self-care (01) ==
LOC: MW.ED 23:42
DX: E11.649 Type 2 diabetes mellitus with hypoglycemia without coma (principal); E78.00 Pure hypercholesterolemia, unspecified; I10 Essential (primary) hypertension; E03.9 Hypothyroidism, unspecified; E66.9 Obesity, unspecified; Z68.32 Body mass index [BMI] 32.0-32.9, adult; Z88.6 Allergy status to analgesic agent; Z88.8 Allergy status to other drugs, medicaments and biological substances; Z79.899 Other long term (current) drug therapy; Z79.4 Long term (current) use of insulin
CPT/HCPCS: 82947; 99284

== ENCOUNTER 2022-05-22 08:10 | Emergency (ER) | payer MEDICARE, OTHER ==
[2022-05-22 08:59] LABS: POTASSIUM,K 3.7 mmol/L (3.5-5.1)
[2022-05-22] MEDS ORDERED: Acetaminophen 500 MG Tab PO ONE (09:01)
[2022-05-22] MEDS ORDERED: cefTRIAXone 1 GM in Sodium Chloride 0.9% 50 ML IV ONE ×2 (10:04→10:30)
[2022-05-22 11:31] VITALS: BP 145/86; PULSE 89
== END 2022-05-22 10:55 ==
LOC: MW.ED 08:10
DX: R53.1 Weakness (principal); I10 Essential (primary) hypertension; E78.00 Pure hypercholesterolemia, unspecified; E11.9 Type 2 diabetes mellitus without complications; E03.9 Hypothyroidism, unspecified; E66.9 Obesity, unspecified; Z68.32 Body mass index [BMI] 32.0-32.9, adult; Z88.8 Allergy status to other drugs, medicaments and biological substances; Z88.5 Allergy status to narcotic agent; Z79.4 Long term (current) use of insulin; Z79.899 Other long term (current) drug therapy; Z20.822 Contact with and (suspected) exposure to COVID-19
CPT/HCPCS: 36415; 80053; 81001; 83735; 85025; 96365; 99285; A9270; J0696; J7050; U0002